=== PATIENT | male | born 1950 | race Two or more races ===

== ENCOUNTER 2019-05-22 04:26 | Inpatient (IN) | payer MEDICARE, MEDICAID ==
[~2019-05-22] VITALS: Ht 165.1 cm; Wt 81.2 kg
[~2019-05-22 04:26] MED LIST: COREG CR10 MG ORAL; LANTUS5 UNITS SUBQ; LISINOPRIL-HCT1 EAC1 PO; ONGLYZA2.5 MG PO; SIMVASTATIN20 MG ORAL
[2019-05-22 04:36] VITALS: BP 188/80
--- NOTE | 2019-05-22 04:36 | NUR ---
ED Nurse Note: pt biba Co generalized weakness. pt family reported to ambulance that pt normal is aao x 2-3 and pt has recently had a decline in level of consciousness. Pt BP elevated, BS 477; ERMD notified. All blood work drawn and sent to lab. UA sent to lab. Charge nurse initiated IV access. Pt has wounds on bilateral leg with previous bandages applied. Pt is poor historian. Pt unable to ambulate. Pt is confused and repeatedly attempts to remove EKG leads and IV access. ERMD aware
--- NOTE | 2019-05-22 04:37 | NUR ---
ED Nurse Note: ERMD at bedside
--- NOTE | 2019-05-22 04:38 | Emergency Room Report ---
History of Present Illness General Chief Complaint: Generalized Weakness Source: Medical Record Present Illness HPI 69-year-old male with a history of diabetes. He presents with chief complaint of altered mental status and weakness. Onset for about a week now. Family called 911 because he is showing increasing weakness and confusion. Hard time walking. Tonight when he try to get out of bed he slid down and they are unable to get him up. Unknown fever. Falling more. No nausea no vomiting. Decreased appetite. Denies any other complaint. Per EMS, blood sugars in the 400s. He was confused and pulled out his IVs. They said he has no focal deficit. COVID-19 risk:Contact w/high r: No COVID-19 risk:Travel to affect: No Has patient experienced bolivar: No Allergies: Coded Allergies: No Known Allergies (Unverified , 09/24/12) Patient History Past Medical History: see triage record, old chart reviewed, DM Past Surgical History: other Pertinent Family History: none Social History: Denies: smoking Immunizations: other Reviewed Nursing Documentation: PMH: Agreed; PSxH: Agreed Nursing Documentation-PMH Hx Cardiac Problems: Yes Hx Hypertension: Yes Hx Diabetes: Yes Hx Cancer: No Hx Gastrointestinal Problems: No Hx Neurological Problems: No Review of Systems Constitutional: Reports: weakness All Other Systems: limited - Pt is a poor historian Physical Exam Vital Signs Date Time Temp Pulse Resp B/P (MAP) Pulse Ox O2 Delivery O2 Flow Rate FiO2 05/22/19 04:26 98.6 79 20 188/80 (116) 97 Room Air Vitals with high blood pressure Sp02 EP Interpretation: reviewed, normal General Appearance: well appearing, no apparent distress, alert, obese Head: normocephalic, atraumatic Eyes: bilateral eye PERRL, bilateral eye EOMI ENT: hearing grossly normal, normal pharynx Neck: full range of motion, supple, no meningismus Respiratory: chest non-tender, lungs clear, normal breath sounds Cardiovascular #1: regular rate, rhythm, no murmur Gastrointestinal: normal bowel sounds, non tender, no mass, no organomegaly, no bruit, non-distended, other - Reducible umbilical hernia Musculoskeletal: back normal, normal range of motion Neurologic: other - Left arm appear to be weaker than right Psychiatric: other - Confused Medical Decision Making Diagnostic Impression: Primary Impression: Acute encephalopathy Additional Impressions: Acute exacerbation of CHF (congestive heart failure) Qualified Codes: I50.9 - Heart failure, unspecified Hyperglycemia due to type 2 diabetes mellitus Qualified Codes: E11.65 - Type 2 diabetes mellitus with hyperglycemia ARF (acute renal failure) Qualified Codes: N17.9 - Acute kidney failure, unspecified Hyponatremia ER Course This patient presents with altered mental status. Differential includes TIA, CVA, infectious, drugs to name a few. He is actually improved and is back to baseline since he been here. He is now alert talking without any issue. CT scans negative for any acute bleed or acute stroke. Labs show renal failure and elevated glucose. BNP is also elevated but chest x-ray it appeared to be euvolemic. He does have 1+ pitting edema however. I gave him Lasix here. Troponin is negative. Because of his multiple risk factor and altered mental status, will admit versus transfer based on his insurance. He is otherwise amiably stable. Approved for admission here. I discussed the case with Dr. Hdz for admission. EKG Diagnostic Results Rate: normal Rhythm: NSR ST Segments: other - bifasicular block Rhythm Strip Diag. Results EP Interpretation: yes Rate: 85 Rhythm: NSR, no PVC's, no ectopy Chest X-Ray Diagnostic Results Chest X-Ray Diagnostic Results : Chest X-Ray Ordered: Yes # of Views/Limited/Complete: 1 View Indication: Shortness of Breath EP Interpretation: Yes Interpretation: no consolidation, no effusion, no pneumothorax, no acute cardiopulmonary disease Impression: No acute disease Electronically Signed by: Khanh Amaya MD CT/MRI/US Diagnostic Results CT/MRI/US Diagnostic Results : Imaging Test Ordered: CT head Impression Per radiologist negative Last Vital Signs Date Time Temp Pulse Resp B/P (MAP) Pulse Ox O2 Delivery O2 Flow Rate FiO2 05/22/19 04:26 98.6 79 20 188/80 (116) 97 Room Air Status: improved Disposition: ADMITTED INPATIENT Condition: Serious Khanh Amaya MD May 22, 2019 04:38
--- NOTE | 2019-05-22 05:05 | NUR ---
ED Nurse Note: xray at bedside
--- NOTE | 2019-05-22 05:24 | NUR ---
ED Nurse Note: Pt taken to CT in stable condition, vss no ss of distress noted.
[2019-05-22 05:33] LABS: APPEARANCE,URINE CLEAR; BILIRUBIN, URINE NEGATIVE (NEGATIVE); COLOR,URINE PALE YELLOW; GLUCOSE, URINE (UA) 4+ (NEGATIVE); KETONES,URINE NEGATIVE (NEGATIVE); LEUKOCYTE ESTERASE ,URINE NEGATIVE (NEGATIVE); NITRITE,URINE NEGATIVE (NEGATIVE); PH,URINE 6 (4.5-8.0); PROTEIN,URINE 4+ (NEGATIVE); UROBILINOGEN,URINE NORMAL MG/DL (0.0-1.0)
[2019-05-22 05:36] LABS: HEMATOCRIT 34.8 % (42.0-52.0); HEMOGLOBIN 12.1 G/DL (14.2-18.0); MEAN CORPUSCULAR VOLUME 82 FL (80-99); PLATELET COUNT 381 K/UL (150-450); RED BLOOD COUNT 4.24 M/UL (4.70-6.10); RED CELL DISTRIBUTION WIDTH 10.8 % (11.6-14.8); WHITE BLOOD COUNT 13.6 K/UL (4.8-10.8)
[2019-05-22 05:45] LABS: ANION GAP 14 mmol/L (5-15); BLOOD UREA NITROGEN 37 mg/dL (7-18); CALCIUM 7.9 MG/DL (8.5-10.1); CARBON DIOXIDE 23 MMOL/L (21-32); CHLORIDE 83 MMOL/L (98-107); CREATININE 3.6 MG/DL (0.55-1.30); POTASSIUM 4.2 MMOL/L (3.5-5.1); SODIUM 120 MMOL/L (136-145)
--- NOTE | 2019-05-22 05:53 | NUR ---
ED Nurse Note: Pt returned from CT in stable condition. VSS no ss of distress noted.
[2019-05-22 05:57] LABS: ALANINE AMINOTRANSFERASE 16 U/L (12-78); ALBUMIN 3.3 G/DL (3.4-5.0); ALBUMIN/GLOBULIN RATIO 0.9 (1.0-2.7); ALKALINE PHOSPHATASE 101 U/L (46-116); ASPARTATE AMINO TRANSFERASE 14 U/L (15-37); BILIRUBIN,TOTAL 0.4 MG/DL (0.2-1.0)
--- NOTE | 2019-05-22 06:06 | Diagnostic Imaging Report ---
EXAM: CT Head Without Intravenous Contrast CLINICAL HISTORY: Altered mental status. TECHNIQUE: Axial computed tomography images of the head/brain without intravenous contrast. CTDI is 42.9 mGy and DLP is 947.2 mGy-cm. One or more of the following dose reduction techniques were used: automated exposure control, adjustment of the mA and/or kV according to patient size, use of iterative reconstruction technique. COMPARISON: None. FINDINGS: Brain: Small vessel disease of aging. No abnormal extra-axial collection. No hemorrhage. Midline shift: No midline shift or mass-effect. Ventricles: There is prominence of the ventricular system, cortical sulci, basilar cisterns, compatible with age and atrophy. Bones/joints: Visualized sinuses and the calvarium are unremarkable. No acute fracture. Soft tissues: Unremarkable. Sinuses: Unremarkable as visualized. No acute sinusitis. Mastoid air cells: Mastoid air cells are well pneumatized. IMPRESSION: 1. No acute pathology. 2. Age-related changes. 3. If there is concern for early acute lacunar infarcts, magnetic resonance imaging of the brain with diffusion-weighted sequences should be performed for follow-up.
[2019-05-22] MEDS ORDERED: Insulin Human Regular 100units/ml 3ml IV ONE (06:15)
[2019-05-22 06:39] VITALS: BP 175/83
--- NOTE | 2019-05-22 06:50 | Diagnostic Imaging Report ---
EXAM: XR Chest, 1 View CLINICAL HISTORY: AMS TECHNIQUE: Frontal view of the chest. COMPARISON: No relevant prior studies available. FINDINGS: Lungs: Unremarkable. No consolidation. Pleural space: Unremarkable. No pneumothorax. Heart: Unremarkable. No cardiomegaly. Mediastinum: Unremarkable. Bones/joints: Unremarkable. IMPRESSION: Normal chest x-ray.
--- NOTE | 2019-05-22 07:14 | NUR ---
ED Nurse Note: report given to MICAELA Mckenzie
--- NOTE | 2019-05-22 07:31 | NUR ---
ED Nurse Note: Handoff report given to Alma HINOJOSA
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
--- NOTE | 2019-05-22 09:55 | NUR ---
NURSE NOTES: RECVD NEW ADMISSION. Pt is AOX2 (name and place), pt was seen by Dr Bloom. Admitting dr is Sean, dx: CHF, AMS, ARF. Pt is on room air with no sign of sob or resp distress. Instructed to place lui by dr Bloom and ok to keep bilat soft wrist restraints as patient is extremely confused and disoriented. Pt belonging is only clothes. belonging list was reviewed with MANAGER DISCOVERY. awake overnight monitor placed on patient. bed alarm is on, call light within reach, will continue with plan of care
[2019-05-22] MEDS ORDERED: HydrALAZINE 25mg tab ORAL PRN (09:59)
[2019-05-22] MEDS ORDERED: cefTRIAXone 1 GM in D5W 55 ML IVPB ONE (10:00)
[2019-05-22] MEDS ORDERED: NaCl 3% 500ml 500 ML IV ONE (11:00)
[2019-05-22] MEDS: NovoLOG Insulin Flexpen SUBQ SCH ×3 (11:30→20:25)
[2019-05-22] MEDS: sitaGLIPtin 50mg tab ORAL SCH (11:54)
[2019-05-22] MEDS: Aspirin Baby 81mg ORAL SCH (11:55)
[2019-05-22] MEDS: cefTRIAXone 1 GM in D5W 55 ML IVPB SCH (11:58)
[2019-05-22 12:00] VITALS: BP 133/78
[2019-05-22] MEDS: Docusate 100mg cap ORAL SCH ×2 (13:12→17:47)
--- NOTE | 2019-05-22 15:25 | Diagnostic Imaging Report ---
EXAM: US Retroperitoneal Limited, Renal CLINICAL HISTORY: Renal insufficiency TECHNIQUE: Real-time limited ultrasound of the retroperitoneum with image documentation. COMPARISON: No relevant prior studies available. FINDINGS: Right kidney: Unremarkable. No stones. No solid mass. No hydronephrosis. Left kidney: Unremarkable. No stones. No solid mass. No hydronephrosis. Bladder: Distended urinary bladder containing 298 cc. Patient is reportedly incontinent. Could not attempt to void to assess for residual volume. IMPRESSION: No hydronephrosis. Distended urinary bladder containing 298 cc. Patient is reportedly incontinent. Could not attempt to void to assess for residual volume.
[2019-05-22 16:00] VITALS: BP 156/87
--- NOTE | 2019-05-22 16:02 | NUR ---
NURSE NOTES: Spoke to daughter Billie, pt fell at home multiple times, pt lives with daughter polly. Pt was ambulatory until a week ago.
--- NOTE | 2019-05-22 17:15 | Consultation ---
DATE OF CONSULTATION: 05/22/2019 INFECTIOUS DISEASES CONSULTATION CONSULTING PHYSICIAN: Kavon Beasley M.D. PRIMARY ATTENDING PHYSICIAN: Rosalba Estrada M.D. REASON FOR CONSULTATION: Leukocytosis. HISTORY OF PRESENT ILLNESS: This is a 69-year-old male admitted yesterday from home for weakness and confusion, has altered mental status for a week, fell down from the bed. The patient had hyperglycemia with blood sugar of 486 in hospital, leukocytosis with WBC count of 13.6. PAST MEDICAL HISTORY: Significant for diabetes mellitus, hypertension, cardiac problems. ALLERGIES: No known drug allergies. MEDICATIONS: Getting famotidine, atorvastatin, Colace, insulin, ceftriaxone, aspirin, Januvia, amlodipine, Protonix, hydralazine. SOCIAL HISTORY: , originally from [facility]. Denies alcohol, drug abuse, smoking. REVIEW OF SYSTEMS: Limited. The patient confused and restrained, although he answer simple question. Denies coughing and problem passing urine. PHYSICAL EXAMINATION: VITAL SIGNS: Temperature 98.2, pulse 79, blood pressure 133/78. GENERAL APPEARANCE: No acute distress. HEAD AND NECK: Getting oxygen by nasal cannula. He has dry mouth. HEART: Normal rate. LUNGS: Clear. ABDOMEN: Soft and nontender. EXTREMITIES: Edema of both legs. SKIN: Abrasion in the left knee, seems to have healed ulcer in the right heel. LABORATORY AND DIAGNOSTIC DATA: WBC 13.6, hemoglobin 12.1, hematocrit 34.8, and platelets is 381. Sodium 124, potassium 4.2, chloride , bicarb 23, BUN 37, creatinine 3.6, glucose 486. Troponin level was negative. BNP is elevated 9391. Urine toxicology was negative. UA showed WBCs of 0-2. Chest x-ray was normal. Head CT showed age related changes. IMPRESSION: 1. Leukocytosis. 2. Renal failure, likely acute on chronic. 3. Diabetes mellitus with hyperglycemia. 4. Hypertension. 5. Obesity. 6. Hyponatremia. RECOMMENDATION: Continue with ceftriaxone. We will follow up the abdominal ultrasound. We will follow up the cultures. At the end of my exam, I thank Dr. Estrada, for involving me in the care of this patient. Kavon Beasley M.D. DR: Refugio JOB#: [id number] CC:
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
--- NOTE | 2019-05-22 19:30 | NUR ---
NURSE NOTES: received pt from Alma HINOJOSA., pt is sleeping at this moment. no SOB noted in RA. pt has bilateral soft wrist restrain at this moment, pulse is noted bilaterally, skin (wrist) is intact. multiple skin tear noted, optifoam applied. Rgith FA 22G is intact, clean, and patent. Castillo cath is draining well with gravity. call light within reach. bed at the lowest position, alarmed, and locked. will continue to monitor pt with plan of care.
[2019-05-22 20:00] VITALS: BP 120/67
[2019-05-22] MEDS ORDERED: Levemir Flexpen SUBQ SCH (20:00)
[2019-05-22] MEDS: Atorvastatin 20mg tab ORAL SCH (20:19)
[2019-05-22] MEDS: LORazepam 1mg tab ORAL PRN (23:21)
--- NOTE | 2019-05-22 23:30 | Consultation ---
DATE OF CONSULTATION: 05/22/2019 CONSULTING PHYSICIAN: Vamshi Amador M.D. HISTORY OF PRESENT ILLNESS: This is a 69-year-old male with a history of multiple medical issues including diabetes mellitus, congestive heart failure, and renal failure, who has been admitted due to altered mental status, more confusion. The patient is [place]er-speaking. He was more agitated than baseline. He is unable to provide any meaningful history. The patient is taking medication via mouth. The patient is attempting to come out of bed on soft restraints. PAST PSYCHIATRIC HISTORY: Dementia. PAST MEDICAL HISTORY: Hypertension and diabetes mellitus. ALLERGIES: No known drug allergies. SUBSTANCE ABUSE HISTORY: No known history of illicit drug use or alcohol. MENTAL STATUS EXAMINATION: The patient is confused, disoriented. Mood is agitated. Affect is flat. Thought process, there is a paucity of thought content. Thought content, no suicidal or homicidal ideation. Cognition is impaired. Insight and judgment is impaired. ASSESSMENT: AXIS I: Acute encephalopathy. Dementia. AXIS II: Deferred. AXIS III: Hyponatremia. AXIS IV: Low. AXIS V: 20. PLAN: 1. We will start the patient on Zyprexa. 2. Ativan p.r.n. 3. We will continue to follow and readjust the medications. Vamshi Amador M.D. DR: KEYSHAWN JOB#: [id number] CC:
[2019-05-23] VITALS: BP 140/96
[2019-05-23 04:00] VITALS: BP 145/80
[2019-05-23] MEDS: NovoLOG Insulin Flexpen SUBQ SCH ×6 (06:28→20:45)
[2019-05-23] MEDS: sitaGLIPtin 50mg tab ORAL SCH (06:29)
[2019-05-23] MEDS ORDERED: NovoLOG Insulin Flexpen SUBQ SCH (06:30)
--- NOTE | 2019-05-23 06:58 | General Progress Note ---
Assessment/Plan Problem List: (1) Hyponatremia ICD Codes: E87.1 - Hypo-osmolality and hyponatremia SNOMED: 98158582, 621651247 (2) ARF (acute renal failure) ICD Codes: N17.9 - Acute kidney failure, unspecified SNOMED: 05174808, 773620185 Qualifiers: Qualified Codes: N17.9 - Acute kidney failure, unspecified (3) Acute exacerbation of CHF (congestive heart failure) ICD Codes: I50.9 - Heart failure, unspecified SNOMED: 789552803, [id number] Qualifiers: Qualified Codes: I50.9 - Heart failure, unspecified (4) Acute encephalopathy ICD Codes: G93.40 - Encephalopathy, unspecified SNOMED: 31757244, 790684983 (5) Hyperglycemia due to type 2 diabetes mellitus ICD Codes: E11.65 - Type 2 diabetes mellitus with hyperglycemia SNOMED: 247397493044758, 75560484 Qualifiers: Qualified Codes: E11.65 - Type 2 diabetes mellitus with hyperglycemia Assessment/Plan: change Levemir to 25 units qhs add Novolog 6 units ac tid continue Novolog sliding scale ac / hs Subjective ROS Limited/Unobtainable: Yes Allergies: Coded Allergies: No Known Allergies (Unverified , 09/24/12) Subjective events noted evaluated by Dr Cole yesterday presented with severe hyperglycemia received Levemir 25 units last night fasting glucose greatly improved Item Value Date Time Bedside Blood Glucose 102 mg/dl 05/23/19 0630 Bedside Blood Glucose 288 mg/dl H 05/22/19 2100 Bedside Blood Glucose 257 mg/dl H 05/22/19 1743 Bedside Blood Glucose 373 mg/dl H 05/22/19 1130 Bedside Blood Glucose 477 mg/dl H 05/22/19 0621 Objective Last 24 Hour Vital Signs Date Time Temp Pulse Resp B/P (MAP) Pulse Ox O2 Delivery O2 Flow Rate FiO2 05/23/19 04:00 98.7 90 20 145/80 (101) 96 05/23/19 03:45 88 05/23/19 00:00 98.1 83 20 140/96 (111) 96 05/22/19 23:27 86 05/22/19 21:00 Room Air 05/22/19 20:00 98.4 20 120/67 (84) 98 05/22/19 19:51 84 05/22/19 16:00 89 05/22/19 16:00 97.7 20 156/87 (110) 96 05/22/19 12:00 98.2 18 133/78 (96) 97 05/22/19 12:00 92 05/22/19 11:55 79 169/79 05/22/19 11:35 Room Air 05/22/19 07:40 98.4 79 18 169/79 99 Room Air Intake and Output 05/22/19 05/23/19 19:00 07:00 Intake Total 360 ml 50 ml Output Total 1500 ml 2400 ml Balance -1140 ml -2350 ml Intake Oral 360 ml 50 ml Output Urine Total 1500 ml 2400 ml # Voids 1 1 Height (Feet): 5 Height (Inches): 5.00 Weight (Pounds): 218 General Appearance: lethargic Neck: normal alignment Cardiovascular: normal rate Respiratory/Chest: lungs clear Abdomen: normal bowel sounds Objective Current Medications Medications (Trade) Dose Ordered Sig/Brendon Route PRN Reason Start Time Stop Time Status Last Admin Dose Admin Amlodipine Besylate (Norvasc) 10 mg DAILY ORAL 05/22/19 10:00 06/21/19 09:59 05/22/19 11:55 Aspirin (ASA) 81 mg DAILY ORAL 05/22/19 10:15 07/06/19 10:14 05/22/19 11:55 Atorvastatin Calcium (Lipitor) 20 mg BEDTIME ORAL 05/22/19 21:00 08/20/19 20:59 05/22/19 20:19 Ceftriaxone Sodium 1 gm/ Dextrose 55 ml @ 110 mls/hr Q24H IVPB 05/22/19 11:00 05/29/19 10:59 05/22/19 11:58 Dextrose (Dextrose 50%) 25 ml Q30M PRN IV Hypoglycemia 05/22/19 11:30 08/20/19 11:29 Dextrose (Dextrose 50%) 25 ml Q30M PRN IV Hypoglycemia 05/22/19 18:45 08/20/19 18:44 Dextrose (Dextrose 50%) 50 ml Q30M PRN IV Hypoglycemia 05/22/19 11:30 08/20/19 11:29 Dextrose (Dextrose 50%) 50 ml Q30M PRN IV Hypoglycemia 05/22/19 18:45 08/20/19 18:44 Docusate Sodium (Colace) 100 mg THREE TIMES A DAY ORAL 05/22/19 13:00 06/21/19 12:59 05/22/19 17:47 Furosemide (Lasix) 20 mg EVERY 12 HOURS IV 05/22/19 21:00 06/21/19 20:59 05/22/19 20:26 Hydralazine HCl (Apresoline) 25 mg Q4H PRN ORAL bp over 160 syst 05/22/19 09:59 08/20/19 09:58 Insulin Aspart (NovoLOG) BEFORE MEALS AND HS SUBQ 05/22/19 21:00 08/20/19 20:59 05/22/19 20:25 Insulin Aspart (NovoLOG) 10 units NOVOTIAC SUBQ 05/23/19 06:30 08/21/19 06:29 Insulin Detemir (Levemir) 25 units Q12HR SUBQ 05/22/19 20:00 08/20/19 19:59 05/22/19 20:24 Lorazepam (Ativan) 1 mg Q4H PRN ORAL For Anxiety 05/22/19 18:30 05/29/19 18:29 05/22/19 23:21 Olanzapine (ZyPREXA) 5 mg BID ORAL 05/22/19 18:30 07/06/19 18:29 05/22/19 18:40 Pantoprazole (Protonix) 40 mg EVERY 12 HOURS ORAL 05/22/19 10:00 06/21/19 09:59 05/22/19 20:19 Sitagliptin Phosphate (Januvia) 50 mg ACBREAKFAST ORAL 05/22/19 10:01 06/21/19 10:00 05/22/19 11:54 Henri Hernandes MD May 23, 2019 06:58
--- NOTE | 2019-05-23 07:20 | NUR ---
HAND-OFF: Report given to Alma HINOJOSA., pt remains stable at this moment. endorsed plan of care. IV intact patent, and clean. call light within reach.
[2019-05-23 07:35] LABS: BASOPHILS % (AUTO) 0.7 % (0.0-2.0); EOSINOPHILS % (AUTO) 0.5 % (0.0-3.0); HEMATOCRIT 28.1 % (42.0-52.0); HEMOGLOBIN 10.1 G/DL (14.2-18.0); LYMPHOCYTES % (AUTO) 12.1 % (20.0-45.0); MEAN CORPUSCULAR VOLUME 82 FL (80-99); MONOCYTES % (AUTO) 9.2 % (1.0-10.0); NEUTROPHILS % (AUTO) 77.5 % (45.0-75.0); PLATELET COUNT 354 K/UL (150-450); RED BLOOD COUNT 3.45 M/UL (4.70-6.10); RED CELL DISTRIBUTION WIDTH 10.6 % (11.6-14.8); WHITE BLOOD COUNT 12.1 K/UL (4.8-10.8)
[2019-05-23 08:00] VITALS: BP 127/67
[2019-05-23 08:18] LABS: ALANINE AMINOTRANSFERASE 16 U/L (12-78); ALBUMIN 2.7 G/DL (3.4-5.0); ALBUMIN/GLOBULIN RATIO 0.7 (1.0-2.7); ALKALINE PHOSPHATASE 83 U/L (46-116); ANION GAP 12 mmol/L (5-15); ASPARTATE AMINO TRANSFERASE 24 U/L (15-37); BILIRUBIN,TOTAL 0.2 MG/DL (0.2-1.0); BLOOD UREA NITROGEN 38 mg/dL (7-18); CALCIUM 7.6 MG/DL (8.5-10.1); CARBON DIOXIDE 23 MMOL/L (21-32); CHLORIDE 98 MMOL/L (98-107); CHOLESTEROL 156 MG/DL (< 200); CREATINE KINASE 604 U/L (26-308); CREATININE 3.4 MG/DL (0.55-1.30); FERRITIN 60 NG/ML (8-388); GAMMA GLUTAMYL TRANSPEPTIDASE 25 U/L (5-85); HDL CHOLESTEROL 52 MG/DL (40-60); PHOSPHORUS 4.5 MG/DL (2.5-4.9); SODIUM 133 MMOL/L (136-145); TRIGLYCERIDES 149 MG/DL (30-150)
--- NOTE | 2019-05-23 09:00 | NUR ---
NURSE NOTES: Recvd Pt. Pt is on room air with no sign of sob or resp distress. Pt is sleeping. IV in right FA SL. Pt is on soft bilat wrist restraints. bed alarm is on, call light within reach, will continue with plan of care
[2019-05-23 09:50] LABS: % IRON SATURATION 11 % (15-50); IRON 23 ug/dL (50-175); TOTAL IRON BINDING CAPACITY 210 ug/dL (250-450)
--- NOTE | 2019-05-23 10:21 | Consultation ---
History of Present Illness General Date patient seen: May 23, 2019 Chief Complaint: Generalized Weakness Referring physician: Dr. Estrada Reason for Consultation: Right heel ulcer. Present Illness HPI S: Pt seen bedside , resting asleep. Appears NAD. Resting comfortably. Allergies: Coded Allergies: No Known Allergies (Unverified , 09/24/12) Medication History Scheduled Carvedilol Phosphate (Coreg Cr), 10 MG ORAL DAILY, (Reported) Insulin Glargine (Lantus), 20 UNITS SUBQ BEDTIME, (Reported) Lisinopril/Hydrochlorothiazide 20-12.5 Mg Tab (Lisinopril-Hctz 20-12.5 Mg Tab), 1 EACH PO DAILY, (Reported) Saxagliptin Hcl (Onglyza), 2.5 MG PO DAILY, (Reported) Simvastatin (Zocor), 20 MG ORAL BEDTIME, (Reported) Patient History Healthcare decision maker Resuscitation status Full Code Advanced Directive on File No Physical Exam Physical Exam Narrative Focused RLE Exam: Derm: R heel plantar posterior heel DTI. Serous fluid noted. (-) purulent drainage. No ascending erythema, edema is noted. Vasc: 1/4 DP/PT pulses, HISTORIAN RESEARCH ASSISTANT < 3 seconds. Neuro: SILT intact. MSK: MS / ROM. Last 24 Hour Vital Signs Date Time Temp Pulse Resp B/P (MAP) Pulse Ox O2 Delivery O2 Flow Rate FiO2 05/23/19 04:00 98.7 90 20 145/80 (101) 96 05/23/19 03:45 88 05/23/19 00:00 98.1 83 20 140/96 (111) 96 05/22/19 23:27 86 05/22/19 21:00 Room Air 05/22/19 20:00 98.4 20 120/67 (84) 98 05/22/19 19:51 84 05/22/19 16:00 89 05/22/19 16:00 97.7 20 156/87 (110) 96 05/22/19 12:00 98.2 18 133/78 (96) 97 05/22/19 12:00 92 05/22/19 11:55 79 169/79 05/22/19 11:35 Room Air Intake and Output 05/22/19 05/23/19 19:00 07:00 Intake Total 360 ml 50 ml Output Total 1500 ml 2400 ml Balance -1140 ml -2350 ml Intake Oral 360 ml 50 ml Output Urine Total 1500 ml 2400 ml # Voids 1 1 Laboratory Tests Test 05/23/19 06:56 White Blood Count 12.1 K/UL (4.8-10.8) H Red Blood Count 3.45 M/UL (4.70-6.10) L Hemoglobin 10.1 G/DL (14.2-18.0) L Hematocrit 28.1 % (42.0-52.0) L Mean Corpuscular Volume 82 FL (80-99) Mean Corpuscular Hemoglobin 29.3 PG (27.0-31.0) Mean Corpuscular Hemoglobin Concent 35.9 G/DL (32.0-36.0) Red Cell Distribution Width 10.6 % (11.6-14.8) L Platelet Count 354 K/UL (150-450) Mean Platelet Volume 6.1 FL (6.5-10.1) L Neutrophils (%) (Auto) 77.5 % (45.0-75.0) H Lymphocytes (%) (Auto) 12.1 % (20.0-45.0) L Monocytes (%) (Auto) 9.2 % (1.0-10.0) Eosinophils (%) (Auto) 0.5 % (0.0-3.0) Basophils (%) (Auto) 0.7 % (0.0-2.0) Sodium Level 133 MMOL/L (136-145) L Potassium Level 3.0 MMOL/L (3.5-5.1) L Chloride Level 98 MMOL/L (98-107) Carbon Dioxide Level 23 MMOL/L (21-32) Anion Gap 12 mmol/L (5-15) Blood Urea Nitrogen 38 mg/dL (7-18) H Creatinine 3.4 MG/DL (0.55-1.30) H Estimat Glomerular Filtration Rate 18.1 mL/min (>60) Glucose Level 101 MG/DL (74-106) # Hemoglobin A1c > 16.0 % (4.3-6.0) H Osmolality 285 mOsm/kg (297-317) L Uric Acid 8.4 MG/DL (2.6-7.2) H Calcium Level 7.6 MG/DL (8.5-10.1) L Phosphorus Level 4.5 MG/DL (2.5-4.9) Magnesium Level 1.8 MG/DL (1.8-2.4) Iron Level 23 ug/dL (50-175) L Total Iron Binding Capacity 210 ug/dL (250-450) L Percent Iron Saturation 11 % (15-50) L Unsaturated Iron Binding 187 ug/dL (112-346) Ferritin 60 NG/ML (8-388) Total Bilirubin 0.2 MG/DL (0.2-1.0) Gamma Glutamyl Transpeptidase 25 U/L (5-85) Aspartate Amino Transf (AST/SGOT) 24 U/L (15-37) Alanine Aminotransferase (ALT/SGPT) 16 U/L (12-78) Alkaline Phosphatase 83 U/L (46-116) Total Creatine Kinase 604 U/L (26-308) H Troponin I 0.041 ng/mL (0.000-0.056) C-Reactive Protein, Quantitative 6.0 mg/dL (0.00-0.90) H Pro-B-Type Natriuretic Peptide 69341 pg/mL (0-125) H Total Protein 6.4 G/DL (6.4-8.2) Albumin 2.7 G/DL (3.4-5.0) L Globulin 3.7 g/dL Albumin/Globulin Ratio 0.7 (1.0-2.7) L Triglycerides Level 149 MG/DL (30-150) Cholesterol Level 156 MG/DL (< 200) LDL Cholesterol 84 mg/dL (<100) HDL Cholesterol 52 MG/DL (40-60) Cholesterol/HDL Ratio 3.0 (3.3-4.4) L Vitamin B12 Level 907 PG/ML (193-986) Folate 11.5 NG/ML (8.6-58.9) Thyroid Stimulating Hormone (TSH) 1.597 uiU/mL (0.358-3.740) Height (Feet): 5 Height (Inches): 5.00 Weight (Pounds): 218 Medications Current Medications Medications (Trade) Dose Ordered Sig/Brendon Route PRN Reason Start Time Stop Time Status Last Admin Dose Admin Amlodipine Besylate (Norvasc) 10 mg DAILY ORAL 05/22/19 10:00 06/21/19 09:59 05/22/19 11:55 Aspirin (ASA) 81 mg DAILY ORAL 05/22/19 10:15 07/06/19 10:14 05/22/19 11:55 Atorvastatin Calcium (Lipitor) 20 mg BEDTIME ORAL 05/22/19 21:00 08/20/19 20:59 05/22/19 20:19 Ceftriaxone Sodium 1 gm/ Dextrose 55 ml @ 110 mls/hr Q24H IVPB 05/22/19 11:00 05/29/19 10:59 05/22/19 11:58 Dextrose (Dextrose 50%) 25 ml Q30M PRN IV Hypoglycemia 05/23/19 07:00 08/21/19 06:59 Dextrose (Dextrose 50%) 50 ml Q30M PRN IV Hypoglycemia 05/23/19 07:00 08/21/19 06:59 Docusate Sodium (Colace) 100 mg THREE TIMES A DAY ORAL 05/22/19 13:00 06/21/19 12:59 05/22/19 17:47 Furosemide (Lasix) 20 mg EVERY 12 HOURS IV 05/22/19 21:00 06/21/19 20:59 05/22/19 20:26 Hydralazine HCl (Apresoline) 25 mg Q4H PRN ORAL bp over 160 syst 05/22/19 09:59 08/20/19 09:58 Insulin Aspart (NovoLOG) BEFORE MEALS AND HS SUBQ 05/22/19 21:00 08/20/19 20:59 05/22/19 20:25 Insulin Aspart (NovoLOG) 6 units NOVOTIAC SUBQ 05/23/19 11:50 08/21/19 11:49 Insulin Detemir (Levemir) 25 units QHS SUBQ 05/23/19 21:00 08/20/19 19:59 Lorazepam (Ativan) 1 mg Q4H PRN ORAL For Anxiety 05/22/19 18:30 05/29/19 18:29 05/22/19 23:21 Olanzapine (ZyPREXA) 5 mg BID ORAL 05/22/19 18:30 07/06/19 18:29 05/22/19 18:40 Pantoprazole (Protonix) 40 mg EVERY 12 HOURS ORAL 05/22/19 10:00 06/21/19 09:59 05/22/19 20:19 Potassium Chloride 100 ml @ 100 mls/hr Q1HR IVPB 05/23/19 11:00 05/23/19 14:59 UNV Sitagliptin Phosphate (Januvia) 50 mg ACBREAKFAST ORAL 05/22/19 10:01 06/21/19 10:00 05/22/19 11:54 Assessment/Plan Assessment/Plan: A: R heel ulceration, DTI R foot charcot Acute Renal Failure CHF Exacerbation DM P: - Pt seen and evaluated - lab and chart reviewed. - MRI ordered R heel, R/O OM vs deep soft tissue infection. - Arterial U/S B/L L/E ordered, R/O PVD. - Betadine dressing R foot. - Off-loading measures B/L L/E. - Cont IV ABx per ID. - Cont Tx per specialists. - Podiatry will cont to monitor. Ming Yip DPM May 23, 2019 10:21
--- NOTE | 2019-05-23 10:53 | Infectious Diseases Prog Note ---
Assessment/Plan Assessment/Plan IMPRESSION: 1. Leukocytosis improving 2. Renal failure, likely acute on chronic. 3. Diabetes mellitus with hyperglycemia. 4. Hypertension. 5. Obesity. 6. Hyponatremia. RECOMMENDATION: Continue with ceftriaxone. We will follow up the right foot MRI Subjective ROS Limited/Unobtainable: Yes Constitutional: Denies: fever Allergies: Coded Allergies: No Known Allergies (Unverified , 09/24/12) Objective Vital Signs Last 24 Hour Vital Signs Date Time Temp Pulse Resp B/P (MAP) Pulse Ox O2 Delivery O2 Flow Rate FiO2 05/23/19 09:00 Room Air 05/23/19 08:00 85 05/23/19 08:00 96.6 84 20 127/67 (87) 98 05/23/19 04:00 98.7 90 20 145/80 (101) 96 05/23/19 03:45 88 05/23/19 00:00 98.1 83 20 140/96 (111) 96 05/22/19 23:27 86 05/22/19 21:00 Room Air 05/22/19 20:00 98.4 20 120/67 (84) 98 05/22/19 19:51 84 05/22/19 16:00 89 05/22/19 16:00 97.7 20 156/87 (110) 96 05/22/19 12:00 98.2 18 133/78 (96) 97 05/22/19 12:00 92 05/22/19 11:55 79 169/79 05/22/19 11:35 Room Air Height (Feet): 5 Height (Inches): 5.00 Weight (Pounds): 218 General Appearance: no acute distress HEENT: mucous membranes moist Respiratory/Chest: lungs clear Cardiovascular: normal rate Abdomen: soft, non tender Extremities: no edema Skin: ulcers, other - left knee ulcer, right heal deep tissue injury Neurologic/Psychiatric: other - sleeping Laboratory Tests Test 05/23/19 06:56 White Blood Count 12.1 K/UL (4.8-10.8) H Red Blood Count 3.45 M/UL (4.70-6.10) L Hemoglobin 10.1 G/DL (14.2-18.0) L Hematocrit 28.1 % (42.0-52.0) L Mean Corpuscular Volume 82 FL (80-99) Mean Corpuscular Hemoglobin 29.3 PG (27.0-31.0) Mean Corpuscular Hemoglobin Concent 35.9 G/DL (32.0-36.0) Red Cell Distribution Width 10.6 % (11.6-14.8) L Platelet Count 354 K/UL (150-450) Mean Platelet Volume 6.1 FL (6.5-10.1) L Neutrophils (%) (Auto) 77.5 % (45.0-75.0) H Lymphocytes (%) (Auto) 12.1 % (20.0-45.0) L Monocytes (%) (Auto) 9.2 % (1.0-10.0) Eosinophils (%) (Auto) 0.5 % (0.0-3.0) Basophils (%) (Auto) 0.7 % (0.0-2.0) Sodium Level 133 MMOL/L (136-145) L Potassium Level 3.0 MMOL/L (3.5-5.1) L Chloride Level 98 MMOL/L (98-107) Carbon Dioxide Level 23 MMOL/L (21-32) Anion Gap 12 mmol/L (5-15) Blood Urea Nitrogen 38 mg/dL (7-18) H Creatinine 3.4 MG/DL (0.55-1.30) H Estimat Glomerular Filtration Rate 18.1 mL/min (>60) Glucose Level 101 MG/DL (74-106) # Hemoglobin A1c > 16.0 % (4.3-6.0) H Osmolality 285 mOsm/kg (297-317) L Uric Acid 8.4 MG/DL (2.6-7.2) H Calcium Level 7.6 MG/DL (8.5-10.1) L Phosphorus Level 4.5 MG/DL (2.5-4.9) Magnesium Level 1.8 MG/DL (1.8-2.4) Iron Level 23 ug/dL (50-175) L Total Iron Binding Capacity 210 ug/dL (250-450) L Percent Iron Saturation 11 % (15-50) L Unsaturated Iron Binding 187 ug/dL (112-346) Ferritin 60 NG/ML (8-388) Total Bilirubin 0.2 MG/DL (0.2-1.0) Gamma Glutamyl Transpeptidase 25 U/L (5-85) Aspartate Amino Transf (AST/SGOT) 24 U/L (15-37) Alanine Aminotransferase (ALT/SGPT) 16 U/L (12-78) Alkaline Phosphatase 83 U/L (46-116) Total Creatine Kinase 604 U/L (26-308) H Troponin I 0.041 ng/mL (0.000-0.056) C-Reactive Protein, Quantitative 6.0 mg/dL (0.00-0.90) H Pro-B-Type Natriuretic Peptide 54344 pg/mL (0-125) H Total Protein 6.4 G/DL (6.4-8.2) Albumin 2.7 G/DL (3.4-5.0) L Globulin 3.7 g/dL Albumin/Globulin Ratio 0.7 (1.0-2.7) L Triglycerides Level 149 MG/DL (30-150) Cholesterol Level 156 MG/DL (< 200) LDL Cholesterol 84 mg/dL (<100) HDL Cholesterol 52 MG/DL (40-60) Cholesterol/HDL Ratio 3.0 (3.3-4.4) L Vitamin B12 Level 907 PG/ML (193-986) Folate 11.5 NG/ML (8.6-58.9) Thyroid Stimulating Hormone (TSH) 1.597 uiU/mL (0.358-3.740) Current Medications Medications (Trade) Dose Ordered Sig/Brendon Route PRN Reason Start Time Stop Time Status Last Admin Dose Admin Amlodipine Besylate (Norvasc) 10 mg DAILY ORAL 05/22/19 10:00 06/21/19 09:59 05/22/19 11:55 Aspirin (ASA) 81 mg DAILY ORAL 05/22/19 10:15 07/06/19 10:14 05/22/19 11:55 Atorvastatin Calcium (Lipitor) 20 mg BEDTIME ORAL 05/22/19 21:00 08/20/19 20:59 05/22/19 20:19 Ceftriaxone Sodium 1 gm/ Dextrose 55 ml @ 110 mls/hr Q24H IVPB 05/22/19 11:00 05/29/19 10:59 05/22/19 11:58 Dextrose (Dextrose 50%) 25 ml Q30M PRN IV Hypoglycemia 05/23/19 07:00 08/21/19 06:59 Dextrose (Dextrose 50%) 50 ml Q30M PRN IV Hypoglycemia 05/23/19 07:00 08/21/19 06:59 Docusate Sodium (Colace) 100 mg THREE TIMES A DAY ORAL 05/22/19 13:00 06/21/19 12:59 05/22/19 17:47 Furosemide (Lasix) 20 mg EVERY 12 HOURS IV 05/22/19 21:00 06/21/19 20:59 05/22/19 20:26 Hydralazine HCl (Apresoline) 25 mg Q4H PRN ORAL bp over 160 syst 05/22/19 09:59 08/20/19 09:58 Insulin Aspart (NovoLOG) BEFORE MEALS AND HS SUBQ 05/22/19 21:00 08/20/19 20:59 05/22/19 20:25 Insulin Aspart (NovoLOG) 6 units NOVOTIAC SUBQ 05/23/19 11:50 08/21/19 11:49 Insulin Detemir (Levemir) 25 units QHS SUBQ 05/23/19 21:00 08/20/19 19:59 Lorazepam (Ativan) 1 mg Q4H PRN ORAL For Anxiety 05/22/19 18:30 05/29/19 18:29 05/22/19 23:21 Olanzapine (ZyPREXA) 5 mg BID ORAL 05/22/19 18:30 07/06/19 18:29 05/22/19 18:40 Pantoprazole (Protonix) 40 mg EVERY 12 HOURS ORAL 05/22/19 10:00 06/21/19 09:59 05/22/19 20:19 Potassium Chloride 100 ml @ 100 mls/hr Q1H IVPB 05/23/19 11:00 05/23/19 14:59 Sitagliptin Phosphate (Januvia) 50 mg ACBREAKFAST ORAL 05/22/19 10:01 06/21/19 10:00 05/22/19 11:54 Sodium Chloride 400 ml @ 100 mls/hr Q4H IV 05/23/19 11:00 05/23/19 14:59 Kavon Beasley MD May 23, 2019 10:53
[2019-05-23] MEDS: Aspirin Baby 81mg ORAL SCH (10:56)
[2019-05-23] MEDS: cefTRIAXone 1 GM in D5W 55 ML IVPB SCH (11:00)
[2019-05-23] MEDS ORDERED: Sodium Chloride for KCL Premix X 4hrs IV SCH (11:00)
[2019-05-23] MEDS: Docusate 100mg cap ORAL SCH ×3 (11:01→18:00)
[2019-05-23] MEDS: LORazepam 1mg tab ORAL PRN (11:01)
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
[2019-05-23 12:00] VITALS: BP 98/57
--- NOTE | 2019-05-23 12:25 | NUR ---
NURSE NOTES: Spoke to technician automatic, requesting more time as pt is poor historian, need to know if pt has any metal. No PM noted. Pt recently had surgery to right foot, family unsure of procedure. Pt daughter unable to state if pt has any metal, will follow up with packaging tech
--- NOTE | 2019-05-23 12:26 | NUR ---
05/22...CONCERNING MRI...EXAM ON HOLD, MICAELA GARDUNO WISHES TO SPEAK TO FAMILY 1ST TO CONFIRM MR SAFETY. PT ALSO NEEDS TO BE WELL SEDATED FOR EXAM SINCE HE MUST BE STILL FOR AROUND 25-30 MINUTES. NEL 12:15
--- NOTE | 2019-05-23 13:15 | Consultation ---
DATE OF CONSULTATION: 05/22/2019 ENDOCRINOLOGY CONSULTATION CONSULTING PHYSICIAN: Ean Cole M.D. REFERRING PHYSICIAN: Rosalba Estrada M.D. REASON FOR CONSULTATION: I was asked to see this 69-year-old male by Dr. Rosalba Estrada in endocrinology consultation for management of type 2 diabetes mellitus out of control. hyponatremia, sodium 120, started on glargine 5 units q.12 h. and 30 mL/hr per renal risk assessment consultant. PHYSICAL EXAMINATION: GENERAL: The patient is in no acute distress. VITAL SIGNS: Blood pressure . . EXTREMITIES: 2+ edema. NEUROLOGICAL: Cranial nerves II through XII are grossly intact. Toes are downgoing to plantar stimulation. LABORATORY DATA: WBC . Sodium 120, BUN 13, creatinine , glucose . Troponin 0.030. BNP 9391. CT of the head was negative. IMPRESSION: 1. Diabetes mellitus, type 2, out of control. 2. Chronic renal insufficiency acute CKD 4 . PLAN: Levemir was increased from 5 to 25 units q.12 h. NovoLog 10 units t.i.d. a.c. sliding scale. Ean Cole M.D. DR: ZHENG JOB#: [id number] CC:
--- NOTE | 2019-05-23 13:20 | Cardiac Electrophysiology PN ---
Subjective Subjective [id number] Objective Last 24 Hour Vital Signs Date Time Temp Pulse Resp B/P (MAP) Pulse Ox O2 Delivery O2 Flow Rate FiO2 05/23/19 09:00 85 127/67 05/23/19 09:00 Room Air 05/23/19 08:00 85 05/23/19 08:00 96.6 84 20 127/67 (87) 98 05/23/19 04:00 98.7 90 20 145/80 (101) 96 05/23/19 03:45 88 05/23/19 00:00 98.1 83 20 140/96 (111) 96 05/22/19 23:27 86 05/22/19 21:00 Room Air 05/22/19 20:00 98.4 20 120/67 (84) 98 05/22/19 19:51 84 05/22/19 16:00 89 05/22/19 16:00 97.7 20 156/87 (110) 96 Intake and Output 05/22/19 05/23/19 19:00 07:00 Intake Total 360 ml 50 ml Output Total 1500 ml 2400 ml Balance -1140 ml -2350 ml Intake Oral 360 ml 50 ml Output Urine Total 1500 ml 2400 ml # Voids 1 1 Laboratory Tests Test 05/23/19 06:56 White Blood Count 12.1 K/UL (4.8-10.8) H Red Blood Count 3.45 M/UL (4.70-6.10) L Hemoglobin 10.1 G/DL (14.2-18.0) L Hematocrit 28.1 % (42.0-52.0) L Mean Corpuscular Volume 82 FL (80-99) Mean Corpuscular Hemoglobin 29.3 PG (27.0-31.0) Mean Corpuscular Hemoglobin Concent 35.9 G/DL (32.0-36.0) Red Cell Distribution Width 10.6 % (11.6-14.8) L Platelet Count 354 K/UL (150-450) Mean Platelet Volume 6.1 FL (6.5-10.1) L Neutrophils (%) (Auto) 77.5 % (45.0-75.0) H Lymphocytes (%) (Auto) 12.1 % (20.0-45.0) L Monocytes (%) (Auto) 9.2 % (1.0-10.0) Eosinophils (%) (Auto) 0.5 % (0.0-3.0) Basophils (%) (Auto) 0.7 % (0.0-2.0) Sodium Level 133 MMOL/L (136-145) L Potassium Level 3.0 MMOL/L (3.5-5.1) L Chloride Level 98 MMOL/L (98-107) Carbon Dioxide Level 23 MMOL/L (21-32) Anion Gap 12 mmol/L (5-15) Blood Urea Nitrogen 38 mg/dL (7-18) H Creatinine 3.4 MG/DL (0.55-1.30) H Estimat Glomerular Filtration Rate 18.1 mL/min (>60) Glucose Level 101 MG/DL (74-106) # Hemoglobin A1c > 16.0 % (4.3-6.0) H Osmolality 285 mOsm/kg (297-317) L Uric Acid 8.4 MG/DL (2.6-7.2) H Calcium Level 7.6 MG/DL (8.5-10.1) L Phosphorus Level 4.5 MG/DL (2.5-4.9) Magnesium Level 1.8 MG/DL (1.8-2.4) Iron Level 23 ug/dL (50-175) L Total Iron Binding Capacity 210 ug/dL (250-450) L Percent Iron Saturation 11 % (15-50) L Unsaturated Iron Binding 187 ug/dL (112-346) Ferritin 60 NG/ML (8-388) Total Bilirubin 0.2 MG/DL (0.2-1.0) Gamma Glutamyl Transpeptidase 25 U/L (5-85) Aspartate Amino Transf (AST/SGOT) 24 U/L (15-37) Alanine Aminotransferase (ALT/SGPT) 16 U/L (12-78) Alkaline Phosphatase 83 U/L (46-116) Total Creatine Kinase 604 U/L (26-308) H Troponin I 0.041 ng/mL (0.000-0.056) C-Reactive Protein, Quantitative 6.0 mg/dL (0.00-0.90) H Pro-B-Type Natriuretic Peptide 27362 pg/mL (0-125) H Total Protein 6.4 G/DL (6.4-8.2) Albumin 2.7 G/DL (3.4-5.0) L Globulin 3.7 g/dL Albumin/Globulin Ratio 0.7 (1.0-2.7) L Triglycerides Level 149 MG/DL (30-150) Cholesterol Level 156 MG/DL (< 200) LDL Cholesterol 84 mg/dL (<100) HDL Cholesterol 52 MG/DL (40-60) Cholesterol/HDL Ratio 3.0 (3.3-4.4) L Vitamin B12 Level 907 PG/ML (193-986) Folate 11.5 NG/ML (8.6-58.9) Thyroid Stimulating Hormone (TSH) 1.597 uiU/mL (0.358-3.740) Shashi Tucker MD May 23, 2019 13:20
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
--- NOTE | 2019-05-23 13:32 | NUR ---
CASE MANAGEMENT: INITIAL REVIEW 69YR OLD MALE BIBA FROM HOME CC: GENERALIZED WEAKNESS SI:CHF . ACUTE ENCEPHALOPATHY . UTI 98.6 79 20 188/80 97% ON RA NA+ 120 CL- 83 BUN 37 CREAT 3.6 BG 486 CA+ 7.9 BNP 9391 WBC 13.6 H/H 12.1/34.8 IS:IVF NS BOLUS X1 NOVOLOG IV X1 LASIX IV X1 CT HEAD - If there is concern for early acute lacunar infarcts CHEST X-RAY- NORMAL US RENAL - NO HYDRONEPHROSIS \: 2E TELE UNIT DCP: FAMILY REQUESTING SNF CASE MANAGEMENT: REVIEW 05/23/19 SI:CHF . ACUTE ENCEPHALOPATHY . UTI . RENAL FAILURE . DM 96.6 84 20 127/67 98% ON RA WBC 12.1 H/H 10.1/28.1 CK 604 BNP 72272 NA+ 133 K+3.0 BUN 38 CREAT 3.4 HA1C 16.0 URIC ACID 8.4 CA+ 7.6 IS:IV ROCEPHIN Q24HR IV K-CL X4BAGS IV NS@100ML/HR PROTONIX PO BID ASA PO QD ATIVAN Q4/PRN \: 2E TELE UNIT DCP: FAMILY REQUESTING SNF
[2019-05-23 15:57] VITALS: BP 119/70
--- NOTE | 2019-05-23 16:49 | NUR ---
NURSE NOTES: Notified Dr Amador pt has been sleeping all day,. Addendum: 05/23/19 at 1650 by SHAAN AZEVEDO RN Zyprexa was held this morning, requesting to dc order. lorazepam is available if necessary
--- NOTE | 2019-05-23 17:15 | Consultation ---
DATE OF CONSULTATION: 05/23/2019 CARDIOLOGY CONSULTATION CONSULTING PHYSICIAN: Shashi Tucker M.D. REFERRING PHYSICIAN: Rosalba Estrada M.D. REASON FOR CONSULTATION: Evaluation of hypertension and history of heart surgery. HISTORY OF PRESENT ILLNESS: The patient is a 69-year-old gentleman with history of hypertension, diabetes, and history of sternotomy for open heart surgery, who was admitted from home for weakness and confusion. The patient was altered and fell down from bed. The patient was found to have hyperglycemia with glucose of 486, as well as white count of 13.6. The patient at the time of my evaluation is still confused and is not able to provide any information. REVIEW OF SYSTEMS: Cannot be obtained. PAST MEDICAL HISTORY: As mentioned above. FAMILY HISTORY: Noncontributory. SOCIAL HISTORY: He lives at home with the family. Does not smoke or drink alcohol. PHYSICAL EXAMINATION: VITAL SIGNS: Blood pressure is 127/67, pulse 85, respiratory rate 18, and temperature 96.6. HEAD AND NECK: Shows no JVD. LUNGS: Coarse rhonchi. CARDIOVASCULAR: Shows regular S1 and S2 with no gallop or murmur. Sternotomy scar is healed. ABDOMEN: Soft. EXTREMITIES: Ulcer in the heel as well as ulcer in the right lateral thigh. LABORATORY AND DIAGNOSTIC STUDIES: Labs show white count of 12.1, hemoglobin of 10, hematocrit 28, and platelet count of 354,000. Sodium is 132, potassium 3.0, BUN of 38, creatinine 3.4, and glucose of 101, initially was 486. Troponin negative x2. ASSESSMENT AND PLAN: 1. Elevated BNP of more than 14,000, possible congestive heart failure. His echocardiogram showed ejection fraction of 65%. Watch the patient on telemetry, already ruled out for myocardial infarction. 2. Severe aortic stenosis with aortic valve area of 0.5 by continuity equation. Awaiting final echocardiogram reading. 3. 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 The patient is already on Lipitor and aspirin. 4. Hypertension, on Norvasc 10 mg daily and p.r.n. hydralazine. 5. Uncontrolled diabetes, on insulin. 6. Leukocytosis, improving. 7. Acute on chronic renal failure. 8. Obesity. 9. Hyponatremia. 10. Right posterior heel DTI. MRI pending. Thank you very much for allowing me to participate in the care of this patient. Please do not hesitate to contact me for any questions regarding my evaluation. Shashi Tucker M.D. DR: MARGAUX JOB#: [id number] CC:
--- NOTE | 2019-05-23 19:54 | NUR ---
NURSE NOTES: Report received from Alma HINOJOSA. Patient is observed in bed, asleep, but arousable by tactile stimuli. Respiration even and unlabored. Iv site is asymptomatic, patent, and intact. IVF is running at a prescribed rate. Bed is in lowest position with side rails up x2 and brakes are engaged. Bed alarm is on. Will continue frequent monitoring.
[2019-05-23 20:18] VITALS: BP 131/78
--- NOTE | 2019-05-23 20:52 | General Progress Note ---
Assessment/Plan Problem List: (1) ARF (acute renal failure) ICD Codes: N17.9 - Acute kidney failure, unspecified SNOMED: 45677544, 740295357 Qualifiers: Qualified Codes: N17.9 - Acute kidney failure, unspecified (2) Obesity (BMI 30-39.9) ICD Codes: E66.9 - Obesity, unspecified SNOMED: 870857396, 181065390 (3) Acute encephalopathy ICD Codes: G93.40 - Encephalopathy, unspecified SNOMED: 54995038, 618710537 (4) Hyperglycemia due to type 2 diabetes mellitus ICD Codes: E11.65 - Type 2 diabetes mellitus with hyperglycemia SNOMED: 422229305033075, 11990964 Qualifiers: Qualified Codes: E11.65 - Type 2 diabetes mellitus with hyperglycemia (5) Hyponatremia ICD Codes: E87.1 - Hypo-osmolality and hyponatremia SNOMED: 44860383, 891412017 (6) Acute exacerbation of CHF (congestive heart failure) ICD Codes: I50.9 - Heart failure, unspecified SNOMED: 480970274, 84698905937387 Qualifiers: Qualified Codes: I50.9 - Heart failure, unspecified Status: progressing Assessment/Plan: afebrile more confused and lethargic due to possibly psych meds? niddm sugar is improving confused azotemia Subjective ROS Limited/Unobtainable: Yes Allergies: Coded Allergies: No Known Allergies (Unverified , 09/24/12) Objective Last 24 Hour Vital Signs Date Time Temp Pulse Resp B/P (MAP) Pulse Ox O2 Delivery O2 Flow Rate FiO2 05/23/19 20:18 97.9 84 20 131/78 (95) 98 05/23/19 16:00 75 05/23/19 15:57 97.5 84 20 119/70 (86) 98 05/23/19 12:00 77 05/23/19 12:00 98.1 81 20 98/57 (71) 98 05/23/19 09:00 85 127/67 05/23/19 09:00 Room Air 05/23/19 08:00 85 05/23/19 08:00 96.6 84 20 127/67 (87) 98 05/23/19 04:00 98.7 90 20 145/80 (101) 96 05/23/19 03:45 88 05/23/19 00:00 98.1 83 20 140/96 (111) 96 05/22/19 23:27 86 05/22/19 21:00 Room Air Intake and Output 05/22/19 05/23/19 19:00 07:00 Intake Total 360 ml 50 ml Output Total 1500 ml 2400 ml Balance -1140 ml -2350 ml Intake Oral 360 ml 50 ml Output Urine Total 1500 ml 2400 ml # Voids 1 1 Laboratory Tests 05/23/19 06:56: White Blood Count 12.1H, Red Blood Count 3.45L, Hemoglobin 10.1L, Hematocrit 28.1L, Mean Corpuscular Volume 82, Mean Corpuscular Hemoglobin 29.3, Mean Corpuscular Hemoglobin Concent 35.9, Red Cell Distribution Width 10.6L, Platelet Count 354, Mean Platelet Volume 6.1L, Neutrophils (%) (Auto) 77.5H, Lymphocytes (%) (Auto) 12.1L, Monocytes (%) (Auto) 9.2, Eosinophils (%) (Auto) 0.5, Basophils (%) (Auto) 0.7, Sodium Level 133L, Potassium Level 3.0L, Chloride Level 98, Carbon Dioxide Level 23, Anion Gap 12, Blood Urea Nitrogen 38H, Creatinine 3.4H, Estimat Glomerular Filtration Rate 18.1, Glucose Level 101 #, Hemoglobin A1c > 16.0H, Osmolality 285L, Uric Acid 8.4H, Calcium Level 7.6L, Phosphorus Level 4.5, Magnesium Level 1.8, Iron Level 23L, Total Iron Binding Capacity 210L, Percent Iron Saturation 11L, Unsaturated Iron Binding 187, Ferritin 60, Total Bilirubin 0.2, Gamma Glutamyl Transpeptidase 25, Aspartate Amino Transf (AST/SGOT) 24, Alanine Aminotransferase (ALT/SGPT) 16, Alkaline Phosphatase 83, Total Creatine Kinase 604H, Troponin I 0.041, C-Reactive Protein , Quantitative 6.0H, Pro-B-Type Natriuretic Peptide 28113O, Total Protein 6.4, Albumin 2.7L, Globulin 3.7, Albumin/Globulin Ratio 0.7L, Triglycerides Level 149 , Cholesterol Level 156, LDL Cholesterol 84, HDL Cholesterol 52, Cholesterol/ HDL Ratio 3.0L, Vitamin B12 Level 907, Folate 11.5, Thyroid Stimulating Hormone (TSH) 1.597 Height (Feet): 5 Height (Inches): 5.00 Weight (Pounds): 218 Cardiovascular: regular rhythm Respiratory/Chest: lungs clear Abdomen: soft Rosalba Estrada MD May 23, 2019 20:52
[2019-05-23] MEDS ORDERED: Levemir Flexpen SUBQ SCH (21:00)
[2019-05-23] MEDS: Atorvastatin 20mg tab ORAL SCH (21:06)
[2019-05-24] VITALS: BP 122/79
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
--- NOTE | 2019-05-24 00:46 | NUR ---
NURSE NOTES: Patient is asleep but arousable by voice. Respiratory even and unlabored. No c/o pain and/or discomfort at this time. Will continue to monitor.
[2019-05-24 04:00] VITALS: BP 142/70
[2019-05-24] MEDS: NovoLOG Insulin Flexpen SUBQ SCH ×4 (06:30→21:26)
--- NOTE | 2019-05-24 06:30 | General Progress Note ---
Assessment/Plan Problem List: (1) Hyponatremia ICD Codes: E87.1 - Hypo-osmolality and hyponatremia SNOMED: 21788132, 806084338 (2) ARF (acute renal failure) ICD Codes: N17.9 - Acute kidney failure, unspecified SNOMED: 21783790, 759755104 Qualifiers: Qualified Codes: N17.9 - Acute kidney failure, unspecified (3) Acute exacerbation of CHF (congestive heart failure) ICD Codes: I50.9 - Heart failure, unspecified SNOMED: 042905874, 56888073724441 Qualifiers: Qualified Codes: I50.9 - Heart failure, unspecified (4) Acute encephalopathy ICD Codes: G93.40 - Encephalopathy, unspecified SNOMED: 02894841, 206067701 (5) Hyperglycemia due to type 2 diabetes mellitus ICD Codes: E11.65 - Type 2 diabetes mellitus with hyperglycemia SNOMED: 620512582421668, 93761177 Qualifiers: Qualified Codes: E11.65 - Type 2 diabetes mellitus with hyperglycemia Status: progressing Assessment/Plan: change Levemir to 6 units bid DC Novolog 6 units ac tid continue Novolog sliding scale ac / hs Subjective Allergies: Coded Allergies: No Known Allergies (Unverified , 09/24/12) All Systems: reviewed and negative except above Subjective events noted Levemir 25 units was held last night - glucose was < 100 did not received any Novolog with meals yesterday - glucose was normal Item Value Date Time Bedside Blood Glucose 94 mg/dl 05/23/19 2130 Bedside Blood Glucose 101 mg/dl 05/23/19 1648 Bedside Blood Glucose 92 mg/dl 05/23/19 1150 Bedside Blood Glucose 102 mg/dl 05/23/19 0630 Objective Last 24 Hour Vital Signs Date Time Temp Pulse Resp B/P (MAP) Pulse Ox O2 Delivery O2 Flow Rate FiO2 05/24/19 04:00 77 05/24/19 04:00 97.9 85 20 142/70 (94) 98 05/24/19 00:00 97.3 81 20 122/79 (93) 98 05/23/19 23:28 77 05/23/19 21:31 Room Air 05/23/19 20:18 97.9 84 20 131/78 (95) 98 05/23/19 19:00 76 05/23/19 16:00 75 05/23/19 15:57 97.5 84 20 119/70 (86) 98 05/23/19 12:00 77 05/23/19 12:00 98.1 81 20 98/57 (71) 98 05/23/19 09:00 85 127/67 05/23/19 09:00 Room Air 05/23/19 08:00 85 05/23/19 08:00 96.6 84 20 127/67 (87) 98 Intake and Output 05/23/19 05/24/19 19:00 07:00 Output Total 750 ml Balance -750 ml Output Urine Total 750 ml Laboratory Tests 05/23/19 06:56: White Blood Count 12.1H, Red Blood Count 3.45L, Hemoglobin 10.1L, Hematocrit 28.1L, Mean Corpuscular Volume 82, Mean Corpuscular Hemoglobin 29.3, Mean Corpuscular Hemoglobin Concent 35.9, Red Cell Distribution Width 10.6L, Platelet Count 354, Mean Platelet Volume 6.1L, Neutrophils (%) (Auto) 77.5H, Lymphocytes (%) (Auto) 12.1L, Monocytes (%) (Auto) 9.2, Eosinophils (%) (Auto) 0.5, Basophils (%) (Auto) 0.7, Sodium Level 133L, Potassium Level 3.0L, Chloride Level 98, Carbon Dioxide Level 23, Anion Gap 12, Blood Urea Nitrogen 38H, Creatinine 3.4H, Estimat Glomerular Filtration Rate 18.1, Glucose Level 101 #, Hemoglobin A1c > 16.0H, Osmolality 285L, Uric Acid 8.4H, Calcium Level 7.6L, Phosphorus Level 4.5, Magnesium Level 1.8, Iron Level 23L, Total Iron Binding Capacity 210L, Percent Iron Saturation 11L, Unsaturated Iron Binding 187, Ferritin 60, Total Bilirubin 0.2, Gamma Glutamyl Transpeptidase 25, Aspartate Amino Transf (AST/SGOT) 24, Alanine Aminotransferase (ALT/SGPT) 16, Alkaline Phosphatase 83, Total Creatine Kinase 604H, Troponin I 0.041, C-Reactive Protein , Quantitative 6.0H, Pro-B-Type Natriuretic Peptide 54519K, Total Protein 6.4, Albumin 2.7L, Globulin 3.7, Albumin/Globulin Ratio 0.7L, Triglycerides Level 149 , Cholesterol Level 156, LDL Cholesterol 84, HDL Cholesterol 52, Cholesterol/ HDL Ratio 3.0L, Vitamin B12 Level 907, Folate 11.5, Thyroid Stimulating Hormone (TSH) 1.597 Height (Feet): 5 Height (Inches): 5.00 Weight (Pounds): 218 General Appearance: no apparent distress Neck: normal alignment Cardiovascular: normal rate Respiratory/Chest: lungs clear Abdomen: normal bowel sounds Pelvis: normal external exam Objective Current Medications Medications (Trade) Dose Ordered Sig/Brendon Route PRN Reason Start Time Stop Time Status Last Admin Dose Admin Amlodipine Besylate (Norvasc) 10 mg DAILY ORAL 05/22/19 10:00 06/21/19 09:59 05/22/19 11:55 Aspirin (ASA) 81 mg DAILY ORAL 05/22/19 10:15 07/06/19 10:14 05/23/19 10:56 Atorvastatin Calcium (Lipitor) 20 mg BEDTIME ORAL 05/22/19 21:00 08/20/19 20:59 05/23/19 21:06 Ceftriaxone Sodium 1 gm/ Dextrose 55 ml @ 110 mls/hr Q24H IVPB 05/22/19 11:00 05/29/19 10:59 05/23/19 11:00 Dextrose (Dextrose 50%) 25 ml Q30M PRN IV Hypoglycemia 05/23/19 07:00 08/21/19 06:59 Dextrose (Dextrose 50%) 50 ml Q30M PRN IV Hypoglycemia 05/23/19 07:00 08/21/19 06:59 Docusate Sodium (Colace) 100 mg THREE TIMES A DAY ORAL 05/22/19 13:00 06/21/19 12:59 05/23/19 13:00 Hydralazine HCl (Apresoline) 25 mg Q4H PRN ORAL bp over 160 syst 05/22/19 09:59 08/20/19 09:58 Insulin Aspart (NovoLOG) BEFORE MEALS AND HS SUBQ 05/22/19 21:00 08/20/19 20:59 05/22/19 20:25 Insulin Aspart (NovoLOG) 6 units NOVOTIAC SUBQ 05/23/19 11:50 08/21/19 11:49 Insulin Detemir (Levemir) 25 units QHS SUBQ 05/23/19 21:00 08/20/19 19:59 Lorazepam (Ativan) 1 mg Q4H PRN ORAL For Anxiety 05/22/19 18:30 05/29/19 18:29 05/22/19 23:21 Pantoprazole (Protonix) 40 mg EVERY 12 HOURS ORAL 05/22/19 10:00 06/21/19 09:59 05/23/19 21:06 Sitagliptin Phosphate (Januvia) 50 mg ACBREAKFAST ORAL 05/22/19 10:01 06/21/19 10:00 05/22/19 11:54 Sodium Chloride 1,000 ml @ 75 mls/hr [id number] IV 05/23/19 13:30 06/22/19 13:29 05/23/19 13:44 Henri Hernandes MD May 24, 2019 06:30
[2019-05-24] MEDS: sitaGLIPtin 50mg tab ORAL SCH (06:37)
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
[2019-05-24 07:26] LABS: BASOPHILS % (AUTO) 0.9 % (0.0-2.0); EOSINOPHILS % (AUTO) 1.4 % (0.0-3.0); HEMATOCRIT 29.4 % (42.0-52.0); HEMOGLOBIN 10.2 G/DL (14.2-18.0); LYMPHOCYTES % (AUTO) 15.3 % (20.0-45.0); MEAN CORPUSCULAR VOLUME 84 FL (80-99); MONOCYTES % (AUTO) 10.3 % (1.0-10.0); NEUTROPHILS % (AUTO) 72.1 % (45.0-75.0); PLATELET COUNT 351 K/UL (150-450); RED BLOOD COUNT 3.52 M/UL (4.70-6.10); RED CELL DISTRIBUTION WIDTH 11.4 % (11.6-14.8); WHITE BLOOD COUNT 8.2 K/UL (4.8-10.8)
--- NOTE | 2019-05-24 07:30 | NUR ---
NURSE NOTES: Received pt from EITAN HINOJOSA. Pt is awake and orient, pt is in RA, no SOB or acute respiratory distress noted. pt has intact iv access LH 22G is running well.Pt is eating breakfast by observation. Pt is on continues heart monitoring.no complain of pain at this moment. all needs attended, bed is locked and is in the lowest position, call light within easy reach. will continue to monitor.
--- NOTE | 2019-05-24 07:51 | NUR ---
HAND-OFF: Report given to Ajay HINOJOSA. Patient is in stable condition. Endorsed plan of care.
[2019-05-24 08:00] VITALS: BP 156/89
[2019-05-24 08:27] LABS: ALANINE AMINOTRANSFERASE 10 U/L (12-78); ALBUMIN 2.6 G/DL (3.4-5.0); ALBUMIN/GLOBULIN RATIO 0.8 (1.0-2.7); ALKALINE PHOSPHATASE 79 U/L (46-116); ANION GAP 9 mmol/L (5-15); ASPARTATE AMINO TRANSFERASE 15 U/L (15-37); BILIRUBIN,TOTAL 0.3 MG/DL (0.2-1.0); BLOOD UREA NITROGEN 41 mg/dL (7-18); CALCIUM 8.1 MG/DL (8.5-10.1); CARBON DIOXIDE 26 MMOL/L (21-32); CHLORIDE 101 MMOL/L (98-107); CREATININE 3.9 MG/DL (0.55-1.30); PHOSPHORUS 4.9 MG/DL (2.5-4.9); POTASSIUM 3.6 MMOL/L (3.5-5.1); SODIUM 136 MMOL/L (136-145)
[2019-05-24] MEDS: Docusate 100mg cap ORAL SCH ×3 (08:48→17:14)
[2019-05-24] MEDS: Aspirin Baby 81mg ORAL SCH (08:48)
[2019-05-24] MEDS: Levemir Flexpen SUBQ SCH ×2 (09:00→17:15)
[2019-05-24] MEDS: cefTRIAXone 1 GM in D5W 55 ML IVPB SCH (11:28)
--- NOTE | 2019-05-24 11:31 | Cardiac Electrophysiology PN ---
Assessment/Plan Assessment/Plan 1. Elevated BNP of more than 14,000, possible congestive heart failure. Echocardiogram showed ejection fraction of 55%. Already ruled out for myocardial infarction. BNP down to 7K 2. Severe aortic stenosis with aortic valve area of 0.5 Awaiting final echocardiogram reading. 3. 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 On Lipitor, Norvasc and aspirin. 4. Hypertension, on Norvasc 10 mg daily and p.r.n. hydralazine. 5. Uncontrolled diabetes, on insulin. 6. Leukocytosis, improving. 7. Acute on chronic renal failure. 8. Obesity. 9. Hyponatremia. 10. Right posterior heel DTI. MRI pending reults DW RN Subjective Subjective Had Right foot MRI today. In SR. No CP or SOB Objective Last 24 Hour Vital Signs Date Time Temp Pulse Resp B/P (MAP) Pulse Ox O2 Delivery O2 Flow Rate FiO2 05/24/19 08:48 97 156/89 05/24/19 08:00 100.0 97 20 156/89 (111) 96 05/24/19 07:45 89 05/24/19 04:00 77 05/24/19 04:00 97.9 85 20 142/70 (94) 98 05/24/19 00:00 97.3 81 20 122/79 (93) 98 05/23/19 23:28 77 05/23/19 21:31 Room Air 05/23/19 20:18 97.9 84 20 131/78 (95) 98 05/23/19 19:00 76 05/23/19 16:00 75 05/23/19 15:57 97.5 84 20 119/70 (86) 98 05/23/19 12:00 77 05/23/19 12:00 98.1 81 20 98/57 (71) 98 Intake and Output 05/23/19 05/24/19 19:00 07:00 Output Total 750 ml 700 ml Balance -750 ml -700 ml Output Urine Total 750 ml 700 ml Laboratory Tests Test 05/24/19 06:23 White Blood Count 8.2 K/UL (4.8-10.8) Red Blood Count 3.52 M/UL (4.70-6.10) L Hemoglobin 10.2 G/DL (14.2-18.0) L Hematocrit 29.4 % (42.0-52.0) L Mean Corpuscular Volume 84 FL (80-99) Mean Corpuscular Hemoglobin 29.0 PG (27.0-31.0) Mean Corpuscular Hemoglobin Concent 34.7 G/DL (32.0-36.0) Red Cell Distribution Width 11.4 % (11.6-14.8) L Platelet Count 351 K/UL (150-450) Mean Platelet Volume 6.0 FL (6.5-10.1) L Neutrophils (%) (Auto) 72.1 % (45.0-75.0) Lymphocytes (%) (Auto) 15.3 % (20.0-45.0) L Monocytes (%) (Auto) 10.3 % (1.0-10.0) H Eosinophils (%) (Auto) 1.4 % (0.0-3.0) Basophils (%) (Auto) 0.9 % (0.0-2.0) Sodium Level 136 MMOL/L (136-145) Potassium Level 3.6 MMOL/L (3.5-5.1) Chloride Level 101 MMOL/L (98-107) Carbon Dioxide Level 26 MMOL/L (21-32) Anion Gap 9 mmol/L (5-15) Blood Urea Nitrogen 41 mg/dL (7-18) H Creatinine 3.9 MG/DL (0.55-1.30) H Estimat Glomerular Filtration Rate 15.5 mL/min (>60) Glucose Level 145 MG/DL (74-106) H Uric Acid 9.1 MG/DL (2.6-7.2) H Calcium Level 8.1 MG/DL (8.5-10.1) L Phosphorus Level 4.9 MG/DL (2.5-4.9) Magnesium Level 2.1 MG/DL (1.8-2.4) Total Bilirubin 0.3 MG/DL (0.2-1.0) Aspartate Amino Transf (AST/SGOT) 15 U/L (15-37) Alanine Aminotransferase (ALT/SGPT) 10 U/L (12-78) L Alkaline Phosphatase 79 U/L (46-116) Troponin I 0.030 ng/mL (0.000-0.056) C-Reactive Protein, Quantitative 8.0 mg/dL (0.00-0.90) H Pro-B-Type Natriuretic Peptide 7209 pg/mL (0-125) H Total Protein 5.8 G/DL (6.4-8.2) L Albumin 2.6 G/DL (3.4-5.0) L Globulin 3.2 g/dL Albumin/Globulin Ratio 0.8 (1.0-2.7) L Objective HEAD AND NECK: No JVD. LUNGS: Coarse rhonchi. CARDIOVASCULAR: Regular S1 and S2 with no gallop or murmur. Sternotomy scar is healed. ABDOMEN: Soft. EXTREMITIES: Ulcer in the heel as well as ulcer in the right lateral thigh. Shashi Tucker MD May 24, 2019 11:31
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
--- NOTE | 2019-05-24 11:52 | Infectious Diseases Prog Note ---
Assessment/Plan Assessment/Plan IMPRESSION: 1. Leukocytosis improving 2. Renal failure, likely acute on chronic. 3. Diabetes mellitus with hyperglycemia. 4. Hypertension. 5. Obesity. 6. Hyponatremia. RECOMMENDATION: Continue with ceftriaxone. We will follow up the right foot MRI Subjective ROS Limited/Unobtainable: No Constitutional: Reports: fever, other - [id number] Respiratory: Reports: no symptoms Gastrointestinal/Abdominal: Reports: no symptoms Genitourinary: Reports: no symptoms Allergies: Coded Allergies: No Known Allergies (Unverified , 09/24/12) Objective Vital Signs Last 24 Hour Vital Signs Date Time Temp Pulse Resp B/P (MAP) Pulse Ox O2 Delivery O2 Flow Rate FiO2 05/24/19 08:48 97 156/89 05/24/19 08:00 100.0 97 20 156/89 (111) 96 05/24/19 07:45 89 05/24/19 04:00 77 05/24/19 04:00 97.9 85 20 142/70 (94) 98 05/24/19 00:00 97.3 81 20 122/79 (93) 98 05/23/19 23:28 77 05/23/19 21:31 Room Air 05/23/19 20:18 97.9 84 20 131/78 (95) 98 05/23/19 19:00 76 05/23/19 16:00 75 05/23/19 15:57 97.5 84 20 119/70 (86) 98 05/23/19 12:00 77 05/23/19 12:00 98.1 81 20 98/57 (71) 98 Height (Feet): 5 Height (Inches): 5.00 Weight (Pounds): 218 General Appearance: no acute distress HEENT: mucous membranes moist Respiratory/Chest: lungs clear Cardiovascular: normal rate Abdomen: soft, non tender Extremities: no edema Skin: ulcers, other - left knee, erythema of right heal Neurologic/Psychiatric: alert, responsive Laboratory Tests Test 05/24/19 06:23 White Blood Count 8.2 K/UL (4.8-10.8) Red Blood Count 3.52 M/UL (4.70-6.10) L Hemoglobin 10.2 G/DL (14.2-18.0) L Hematocrit 29.4 % (42.0-52.0) L Mean Corpuscular Volume 84 FL (80-99) Mean Corpuscular Hemoglobin 29.0 PG (27.0-31.0) Mean Corpuscular Hemoglobin Concent 34.7 G/DL (32.0-36.0) Red Cell Distribution Width 11.4 % (11.6-14.8) L Platelet Count 351 K/UL (150-450) Mean Platelet Volume 6.0 FL (6.5-10.1) L Neutrophils (%) (Auto) 72.1 % (45.0-75.0) Lymphocytes (%) (Auto) 15.3 % (20.0-45.0) L Monocytes (%) (Auto) 10.3 % (1.0-10.0) H Eosinophils (%) (Auto) 1.4 % (0.0-3.0) Basophils (%) (Auto) 0.9 % (0.0-2.0) Sodium Level 136 MMOL/L (136-145) Potassium Level 3.6 MMOL/L (3.5-5.1) Chloride Level 101 MMOL/L (98-107) Carbon Dioxide Level 26 MMOL/L (21-32) Anion Gap 9 mmol/L (5-15) Blood Urea Nitrogen 41 mg/dL (7-18) H Creatinine 3.9 MG/DL (0.55-1.30) H Estimat Glomerular Filtration Rate 15.5 mL/min (>60) Glucose Level 145 MG/DL (74-106) H Uric Acid 9.1 MG/DL (2.6-7.2) H Calcium Level 8.1 MG/DL (8.5-10.1) L Phosphorus Level 4.9 MG/DL (2.5-4.9) Magnesium Level 2.1 MG/DL (1.8-2.4) Total Bilirubin 0.3 MG/DL (0.2-1.0) Aspartate Amino Transf (AST/SGOT) 15 U/L (15-37) Alanine Aminotransferase (ALT/SGPT) 10 U/L (12-78) L Alkaline Phosphatase 79 U/L (46-116) Troponin I 0.030 ng/mL (0.000-0.056) C-Reactive Protein, Quantitative 8.0 mg/dL (0.00-0.90) H Pro-B-Type Natriuretic Peptide 7209 pg/mL (0-125) H Total Protein 5.8 G/DL (6.4-8.2) L Albumin 2.6 G/DL (3.4-5.0) L Globulin 3.2 g/dL Albumin/Globulin Ratio 0.8 (1.0-2.7) L Current Medications Medications (Trade) Dose Ordered Sig/Brendon Route PRN Reason Start Time Stop Time Status Last Admin Dose Admin Amlodipine Besylate (Norvasc) 10 mg DAILY ORAL 05/22/19 10:00 06/21/19 09:59 05/24/19 08:48 Aspirin (ASA) 81 mg DAILY ORAL 05/22/19 10:15 07/06/19 10:14 05/24/19 08:48 Atorvastatin Calcium (Lipitor) 20 mg BEDTIME ORAL 05/22/19 21:00 08/20/19 20:59 05/23/19 21:06 Ceftriaxone Sodium 1 gm/ Dextrose 55 ml @ 110 mls/hr Q24H IVPB 05/22/19 11:00 05/29/19 10:59 05/24/19 11:28 Dextrose (Dextrose 50%) 25 ml Q30M PRN IV Hypoglycemia 05/23/19 07:00 08/21/19 06:59 Dextrose (Dextrose 50%) 50 ml Q30M PRN IV Hypoglycemia 05/23/19 07:00 08/21/19 06:59 Docusate Sodium (Colace) 100 mg THREE TIMES A DAY ORAL 05/22/19 13:00 06/21/19 12:59 05/24/19 08:48 Hydralazine HCl (Apresoline) 25 mg Q4H PRN ORAL bp over 160 syst 05/22/19 09:59 08/20/19 09:58 Insulin Aspart (NovoLOG) BEFORE MEALS AND HS SUBQ 05/22/19 21:00 08/20/19 20:59 05/24/19 11:37 Insulin Detemir (Levemir) 6 units BID SUBQ 05/24/19 09:00 08/20/19 19:59 05/24/19 09:00 Iron Sucrose 100 mg/Sodium Chloride 60 ml @ 240 mls/hr BEDTIME IV 05/24/19 21:00 05/28/19 21:14 Lorazepam (Ativan) 1 mg Q4H PRN ORAL For Anxiety 05/22/19 18:30 05/29/19 18:29 05/22/19 23:21 Pantoprazole (Protonix) 40 mg EVERY 12 HOURS ORAL 05/22/19 10:00 06/21/19 09:59 05/24/19 08:48 Sitagliptin Phosphate (Januvia) 50 mg ACBREAKFAST ORAL 05/22/19 10:01 06/21/19 10:00 05/24/19 06:37 Sodium Chloride 1,000 ml @ 75 mls/hr [id number] IV 05/23/19 13:30 06/22/19 13:29 05/23/19 13:44 Kavon Beasley MD May 24, 2019 11:52
[2019-05-24 12:00] VITALS: BP 157/82
--- NOTE | 2019-05-24 14:00 | NUR ---
RD ASSESSMENT & RECOMMENDATIONS SEE CARE ACTIVITY FOR COMPLETE ASSESSMENT DAILY ESTIMATED NEEDS: Needs based on wound, DM, renal 66.4kg 25-30 kcals/kg 4712-2063 total kcals 1.25-1.5 g protein/kg 83-100 g total protein Fluid per MD NUTRITION DIAGNOSIS: Swallowing difficulty r/t possible aspiration risk, dysphagia as evidenced by s/p [employer] CON[employer]ER eval w/ recs for ms ground texture diet. CURRENT DIET:Renal/ ccho med ms ground PO DIET RECOMMENDATIONS: Maintain CCHO MED/ RENAL diet ADDITIONAL RECOMMENDATIONS: 1) Obtain a calibrated bed scale d/t conflicting wts: EMR wt: 218# vs Bed wt: 176# 2) Monitor po intake, need for snacks, [place] Rec to hold psychotropic meds near mealtime 3) F/up w/ wound eval, podiatry eval-> add MIGEL BID 4) Monitor for hypoglycemia 5) rec to redraw for HgA1C
[2019-05-24] MEDS ORDERED: Metoprolol Tartrate 12.5mg TAB ORAL SCH (14:30)
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
[2019-05-24 15:54] VITALS: BP 129/61
--- NOTE | 2019-05-24 16:00 | Diagnostic Imaging Report ---
Indication: Right foot pain "open wound plantar heel Technique: Right foot imaging utilizing multiplanar T1 fast spin-echo, proton and T2 fast spin-echo with fat saturation, and STIR. Comparison: None Findings: There is subcutaneous edema and skin thickening in the plantar part of the foot adjacent to the calcaneus. There is a small focus of peripheral T2 hyperintense/T1 hypointense signal in one location. This could be osteomyelitis or reactive bone marrow edema. There is no abscess. Degenerative changes of the midfoot noted with joint space narrowing and osteophytes. IMPRESSION: Superficial cortical and periosteal edema posterior part of the calcaneus adjacent to the area of cellulitis. Findings could be due to osteomyelitis although localized reactive periostitis is favored.
--- NOTE | 2019-05-24 19:10 | NUR ---
HAND-OFF: Report given to BEAR HINOJOSA. Pt is awake and stable.
--- NOTE | 2019-05-24 19:16 | NUR ---
NURSE NOTES: Received report from MICAELA Rdz. Initial rounding done, pt resting in bed, awake confused, oriented to self, restless and pulled IV out. No apparent cv distress noted, repositioned pt, bed alarm on. will monitor closely.
[2019-05-24 20:00] VITALS: BP 159/89
--- NOTE | 2019-05-24 21:07 | General Progress Note ---
Assessment/Plan Problem List: (1) ARF (acute renal failure) ICD Codes: N17.9 - Acute kidney failure, unspecified SNOMED: 32400174, 769686661 Qualifiers: Qualified Codes: N17.9 - Acute kidney failure, unspecified (2) Obesity (BMI 30-39.9) ICD Codes: E66.9 - Obesity, unspecified SNOMED: 313839731, 670046499 (3) Acute encephalopathy ICD Codes: G93.40 - Encephalopathy, unspecified SNOMED: 80850973, 177623296 (4) Hyperglycemia due to type 2 diabetes mellitus ICD Codes: E11.65 - Type 2 diabetes mellitus with hyperglycemia SNOMED: 514141293358150, 11226276 Qualifiers: Qualified Codes: E11.65 - Type 2 diabetes mellitus with hyperglycemia (5) Hyponatremia ICD Codes: E87.1 - Hypo-osmolality and hyponatremia SNOMED: 06439652, 615023147 (6) Acute exacerbation of CHF (congestive heart failure) ICD Codes: I50.9 - Heart failure, unspecified SNOMED: 251009857, 13874257533601 Qualifiers: Qualified Codes: I50.9 - Heart failure, unspecified Status: progressing Assessment/Plan: more alert obesity arf is improving no fever niddm sugar is improving confused azotemia Subjective ROS Limited/Unobtainable: Yes Allergies: Coded Allergies: No Known Allergies (Unverified , 09/24/12) Objective Last 24 Hour Vital Signs Date Time Temp Pulse Resp B/P (MAP) Pulse Ox O2 Delivery O2 Flow Rate FiO2 05/24/19 16:01 85 05/24/19 15:54 99.1 85 20 129/61 (83) 97 05/24/19 15:32 93 157/82 05/24/19 12:00 99.0 93 20 157/82 (107) 97 05/24/19 11:52 87 05/24/19 09:00 Room Air 05/24/19 08:48 97 156/89 05/24/19 08:00 100.0 97 20 156/89 (111) 96 05/24/19 07:45 89 05/24/19 04:00 77 05/24/19 04:00 97.9 85 20 142/70 (94) 98 05/24/19 00:00 97.3 81 20 122/79 (93) 98 05/23/19 23:28 77 05/23/19 21:31 Room Air Intake and Output 05/23/19 05/24/19 19:00 07:00 Output Total 750 ml 700 ml Balance -750 ml -700 ml Output Urine Total 750 ml 700 ml Laboratory Tests 05/24/19 06:23: White Blood Count 8.2, Red Blood Count 3.52L, Hemoglobin 10.2L, Hematocrit 29.4L , Mean Corpuscular Volume 84, Mean Corpuscular Hemoglobin 29.0, Mean Corpuscular Hemoglobin Concent 34.7, Red Cell Distribution Width 11.4L, Platelet Count 351, Mean Platelet Volume 6.0L, Neutrophils (%) (Auto) 72.1, Lymphocytes (%) (Auto) 15.3L, Monocytes (%) (Auto) 10.3H, Eosinophils (%) (Auto ) 1.4, Basophils (%) (Auto) 0.9, Sodium Level 136, Potassium Level 3.6, Chloride Level 101, Carbon Dioxide Level 26, Anion Gap 9, Blood Urea Nitrogen 41H, Creatinine 3.9H, Estimat Glomerular Filtration Rate 15.5, Glucose Level 145H, Uric Acid 9.1H, Calcium Level 8.1L, Phosphorus Level 4.9, Magnesium Level 2.1, Total Bilirubin 0.3, Aspartate Amino Transf (AST/SGOT) 15, Alanine Aminotransferase (ALT/SGPT) 10L, Alkaline Phosphatase 79, Troponin I 0.030, C- Reactive Protein, Quantitative 8.0H, Pro-B-Type Natriuretic Peptide 7209H, Total Protein 5.8L, Albumin 2.6L, Globulin 3.2, Albumin/Globulin Ratio 0.8L Height (Feet): 5 Height (Inches): 5.00 Weight (Pounds): 218 Respiratory/Chest: lungs clear Rosalba Estrada MD May 24, 2019 21:07
[2019-05-24] MEDS: Atorvastatin 20mg tab ORAL SCH (21:27)
[2019-05-24] MEDS: Iron Sucrose 100 MG in NS 55 ML IV SCH (21:28)
[2019-05-24] MEDS: Metoprolol Tartrate 12.5mg TAB ORAL SCH (21:28)
--- NOTE | 2019-05-24 22:20 | NUR ---
Repositioned pt, bed alarm setting on. Tiffany, charge nurse placed a new IV access to LFA, secure with Kerlix to prevent pt pulling. Reconnect IVF and started Venofer. Frequent rounding implemented, will monitor closely.
--- NOTE | 2019-05-24 23:15 | Progress Note ---
DATE: 05/24/2019 SUBJECTIVE: The patient was resting, arousable, confused, not able to be engaged and answer the questions appropriately. episodes of agitation. MENTAL STATUS EXAMINATION: The patient is alert, oriented times self. Mood is anxious. Affect is flat. Thought process is concrete. Thought content, no suicidal or homicidal ideation. Cognition is impaired. Insight and judgment is impaired. ASSESSMENT: 1. Dementia. 2. Acute encephalopathy. PLAN: 1. Continue current medications. 2. Provide the patient with reality orientation and supportive therapy. Vamshi Amador M.D. DR: STAS JOB#: [id number] CC:
[2019-05-25] VITALS (14 sets, daily range): BP systolic 123–152; BP diastolic 61–83
[2019-05-25] MEDS: sitaGLIPtin 50mg tab ORAL SCH (05:48)
[2019-05-25] MEDS: NovoLOG Insulin Flexpen SUBQ SCH ×4 (05:49→21:00)
--- NOTE | 2019-05-25 07:30 | NUR ---
HAND-OFF: Report given to MICAELA Marquez.
--- NOTE | 2019-05-25 07:30 | NUR ---
NURSE NOTES: recvd pt, unrestrained, pt found sitting at edge of the bed. Pt is AOx2 (name and place), pt is on room air with no sign of sob or resp distress. pt was repositioned to center of bed. bed alarm was placed, bed in lowest locked position, will continue with plan of care.
--- NOTE | 2019-05-25 08:11 | NUR ---
NURSE NOTES: Pt was found sitting on the edge of the floor on the right side of the bed. Pt was reassessed for new injuries, no new injuries noted. Pt mentation continue the same AOx2. VSS taken BP 148/65. Called BRICK BAKER, Dope Edger Lynda notified. Will notify Dr Estrada and DR Amador to renew restraints. Completion of incident report will follow. Addendum: 05/25/19 at 0823 by SHAAN AZEVEDO RN requesting to initiate order for bilat soft restraints
--- NOTE | 2019-05-25 08:12 | Hematology/Onc Progress Note ---
Assessment/Plan Assessment/Plan Assessment and Recs; # Anemia of iron deficiency, likelty multifactorial --> obtain anemia panel==> low ferritin is noted --> occult blood ordered as well --> smear ordered' --> IV IRON Has been started 05/23 # Acute encephalopathy, r/o med relation --> r/o neuro cause --> as per psych management --> ct brain is neg # Acute exacerbation of CHF (congestive heart failure) --> seen by cards --> recs noted --> diuresis prn # Niddm --> accuchecks qac and qhs --> hgb a1c goal <8 # Renal failure most likely acute superimposed on chronic -> Most likely diabetic nephropathy due to proteinuria and renal failure # Severe hyponatremia # Dementia # Obesity # Skin ulcerations over her lower extremity appears to be recent burn Appreciate consultation and dw Rn Subjective Constitutional: Denies: no symptoms, chills, fever, malaise, weakness, other HEENT: Denies: no symptoms, eye pain, blurred vision, tearing, double vision, ear pain, ear discharge, nose pain, nose congestion, throat pain, throat swelling, mouth pain, mouth swelling, other Cardiovascular: Denies: no symptoms, chest pain, edema, irregular heart rate, lightheadedness, palpitations, syncope, other Respiratory: Denies: no symptoms, cough, shortness of breath, SOB with excertion, SOB at rest, sputum, wheezing, other Gastrointestinal/Abdominal: Denies: no symptoms, abdomen distended, abdominal pain, black stools, tarry stools, blood in stool, constipated, diarrhea, difficulty swallowing, nausea, poor appetite, poor fluid intake, rectal bleeding , vomiting, other Genitourinary: Denies: no symptoms, burning, discharge, frequency, flank pain, hematuria, incontinence, pain, urgency, other Neurologic/Psychiatric: Denies: no symptoms, anxiety, depressed, emotional problems, headache, numbness, paresthesia, pre-existing deficit, seizure, tingling, tremors, weakness, other Endocrine: Denies: no symptoms, excessive sweating, flushing, intolerance to cold, intolerance to heat, increased hunger, increased thirst, increased urine, unexplained weight gain, unexplained weight loss, other Hematologic/Lymphatic: Denies: no symptoms, anemia, easy bleeding, easy bruising, adenopathy, other Allergies: Coded Allergies: No Known Allergies (Unverified , 09/24/12) Subjective 05/24 still remains confused, labs are noted, no night sweats, no bleeding Objective Objective Current Medications Medications (Trade) Dose Ordered Sig/Brendon Route PRN Reason Start Time Stop Time Status Last Admin Dose Admin Allopurinol (allopurinoL) 300 mg DAILY ORAL 05/25/19 09:00 06/24/19 08:59 Amlodipine Besylate (Norvasc) 10 mg DAILY ORAL 05/22/19 10:00 06/21/19 09:59 05/24/19 08:48 Aspirin (ASA) 81 mg DAILY ORAL 05/22/19 10:15 07/06/19 10:14 05/24/19 08:48 Atorvastatin Calcium (Lipitor) 20 mg BEDTIME ORAL 05/22/19 21:00 08/20/19 20:59 05/24/19 21:27 Ceftriaxone Sodium 1 gm/ Dextrose 55 ml @ 110 mls/hr Q24H IVPB 05/22/19 11:00 05/29/19 10:59 05/24/19 11:28 Dextrose (Dextrose 50%) 25 ml Q30M PRN IV Hypoglycemia 05/23/19 07:00 08/21/19 06:59 Dextrose (Dextrose 50%) 50 ml Q30M PRN IV Hypoglycemia 05/23/19 07:00 08/21/19 06:59 Docusate Sodium (Colace) 100 mg THREE TIMES A DAY ORAL 05/22/19 13:00 06/21/19 12:59 05/24/19 17:14 Hydralazine HCl (Apresoline) 25 mg Q4H PRN ORAL bp over 160 syst 05/22/19 09:59 08/20/19 09:58 Insulin Aspart (NovoLOG) BEFORE MEALS AND HS SUBQ 05/22/19 21:00 08/20/19 20:59 05/25/19 05:49 Insulin Detemir (Levemir) 6 units BID SUBQ 05/24/19 09:00 08/20/19 19:59 05/24/19 17:15 Iron Sucrose 100 mg/Sodium Chloride 60 ml @ 240 mls/hr BEDTIME IV 05/24/19 21:00 05/28/19 21:14 05/24/19 21:28 Lorazepam (Ativan) 1 mg Q4H PRN ORAL For Anxiety 05/22/19 18:30 05/29/19 18:29 05/22/19 23:21 Metoprolol Tartrate (Lopressor) 12.5 mg Q12HR ORAL 05/24/19 21:00 08/22/19 20:59 05/24/19 21:28 Pantoprazole (Protonix) 40 mg EVERY 12 HOURS ORAL 05/22/19 10:00 06/21/19 09:59 05/24/19 21:27 Sitagliptin Phosphate (Januvia) 50 mg ACBREAKFAST ORAL 05/22/19 10:01 06/21/19 10:00 05/25/19 05:48 Sodium Chloride 1,000 ml @ 75 mls/hr [id number] IV 05/23/19 13:30 06/22/19 13:29 05/25/19 02:52 Last 24 Hour Vital Signs Date Time Temp Pulse Resp B/P (MAP) Pulse Ox O2 Delivery O2 Flow Rate FiO2 05/25/19 04:00 86 05/25/19 04:00 Room Air 05/25/19 04:00 98.2 86 20 152/78 (102) 94 05/25/19 00:00 98.2 89 20 144/83 (103) 95 05/25/19 00:00 Room Air 05/25/19 00:00 89 05/24/19 21:28 87 159/89 05/24/19 21:00 Room Air 05/24/19 20:00 75 05/24/19 20:00 98.2 87 20 159/89 (112) 97 05/24/19 16:01 85 05/24/19 15:54 99.1 85 20 129/61 (83) 97 05/24/19 15:32 93 157/82 05/24/19 12:00 99.0 93 20 157/82 (107) 97 05/24/19 11:52 87 05/24/19 09:00 Room Air 05/24/19 08:48 97 156/89 05/24/19 08:00 100.0 97 20 156/89 (111) 96 05/24/19 07:45 89 05/24/19 04:00 77 05/24/19 04:00 97.9 85 20 142/70 (94) 98 05/24/19 00:00 97.3 81 20 122/79 (93) 98 05/23/19 23:28 77 05/23/19 21:31 Room Air 05/23/19 20:18 97.9 84 20 131/78 (95) 98 05/23/19 19:00 76 05/23/19 16:00 75 05/23/19 15:57 97.5 84 20 119/70 (86) 98 05/23/19 12:00 77 05/23/19 12:00 98.1 81 20 98/57 (71) 98 05/23/19 09:00 85 127/67 05/23/19 09:00 Room Air Intake and Output 05/24/19 05/25/19 19:00 07:00 Intake Total 1675 ml 435 ml Output Total 850 ml 1700 ml Balance 825 ml -1265 ml Intake Oral 720 ml IV Total 955 ml 435 ml Output Urine Total 850 ml 1700 ml Labs Test 05/23/19 06:56 05/24/19 06:23 White Blood Count 12.1 K/UL (4.8-10.8) 8.2 K/UL (4.8-10.8) Red Blood Count 3.45 M/UL (4.70-6.10) 3.52 M/UL (4.70-6.10) Hemoglobin 10.1 G/DL (14.2-18.0) 10.2 G/DL (14.2-18.0) Hematocrit 28.1 % (42.0-52.0) 29.4 % (42.0-52.0) Mean Corpuscular Volume 82 FL (80-99) 84 FL (80-99) Mean Corpuscular Hemoglobin 29.3 PG (27.0-31.0) 29.0 PG (27.0-31.0) Mean Corpuscular Hemoglobin Concent 35.9 G/DL (32.0-36.0) 34.7 G/DL (32.0-36.0) Red Cell Distribution Width 10.6 % (11.6-14.8) 11.4 % (11.6-14.8) Platelet Count 354 K/UL (150-450) 351 K/UL (150-450) Mean Platelet Volume 6.1 FL (6.5-10.1) 6.0 FL (6.5-10.1) Neutrophils (%) (Auto) 77.5 % (45.0-75.0) 72.1 % (45.0-75.0) Lymphocytes (%) (Auto) 12.1 % (20.0-45.0) 15.3 % (20.0-45.0) Monocytes (%) (Auto) 9.2 % (1.0-10.0) 10.3 % (1.0-10.0) Eosinophils (%) (Auto) 0.5 % (0.0-3.0) 1.4 % (0.0-3.0) Basophils (%) (Auto) 0.7 % (0.0-2.0) 0.9 % (0.0-2.0) Sodium Level 133 MMOL/L (136-145) 136 MMOL/L (136-145) Potassium Level 3.0 MMOL/L (3.5-5.1) 3.6 MMOL/L (3.5-5.1) Chloride Level 98 MMOL/L (98-107) 101 MMOL/L (98-107) Carbon Dioxide Level 23 MMOL/L (21-32) 26 MMOL/L (21-32) Anion Gap 12 mmol/L (5-15) 9 mmol/L (5-15) Blood Urea Nitrogen 38 mg/dL (7-18) 41 mg/dL (7-18) Creatinine 3.4 MG/DL (0.55-1.30) 3.9 MG/DL (0.55-1.30) Estimat Glomerular Filtration Rate 18.1 mL/min (>60) 15.5 mL/min (>60) Glucose Level 101 MG/DL (74-106) 145 MG/DL (74-106) Hemoglobin A1c > 16.0 % (4.3-6.0) Osmolality 285 mOsm/kg (297-317) Uric Acid 8.4 MG/DL (2.6-7.2) 9.1 MG/DL (2.6-7.2) Calcium Level 7.6 MG/DL (8.5-10.1) 8.1 MG/DL (8.5-10.1) Phosphorus Level 4.5 MG/DL (2.5-4.9) 4.9 MG/DL (2.5-4.9) Magnesium Level 1.8 MG/DL (1.8-2.4) 2.1 MG/DL (1.8-2.4) Iron Level 23 ug/dL (50-175) Total Iron Binding Capacity 210 ug/dL (250-450) Percent Iron Saturation 11 % (15-50) Unsaturated Iron Binding 187 ug/dL (112-346) Ferritin 60 NG/ML (8-388) Total Bilirubin 0.2 MG/DL (0.2-1.0) 0.3 MG/DL (0.2-1.0) Gamma Glutamyl Transpeptidase 25 U/L (5-85) Aspartate Amino Transf (AST/SGOT) 24 U/L (15-37) 15 U/L (15-37) Alanine Aminotransferase (ALT/SGPT) 16 U/L (12-78) 10 U/L (12-78) Alkaline Phosphatase 83 U/L (46-116) 79 U/L (46-116) Total Creatine Kinase 604 U/L (26-308) Troponin I 0.041 ng/mL (0.000-0.056) 0.030 ng/mL (0.000-0.056) C-Reactive Protein, Quantitative 6.0 mg/dL (0.00-0.90) 8.0 mg/dL (0.00-0.90) Pro-B-Type Natriuretic Peptide 99214 pg/mL (0-125) 7209 pg/mL (0-125) Total Protein 6.4 G/DL (6.4-8.2) 5.8 G/DL (6.4-8.2) Albumin 2.7 G/DL (3.4-5.0) 2.6 G/DL (3.4-5.0) Globulin 3.7 g/dL 3.2 g/dL Albumin/Globulin Ratio 0.7 (1.0-2.7) 0.8 (1.0-2.7) Triglycerides Level 149 MG/DL (30-150) Cholesterol Level 156 MG/DL (< 200) LDL Cholesterol 84 mg/dL (<100) HDL Cholesterol 52 MG/DL (40-60) Cholesterol/HDL Ratio 3.0 (3.3-4.4) Vitamin B12 Level 907 PG/ML (193-986) Folate 11.5 NG/ML (8.6-58.9) Thyroid Stimulating Hormone (TSH) 1.597 uiU/mL (0.358-3.740) Height (Feet): 5 Height (Inches): 5.00 Weight (Pounds): 179 Objective Physical Exam Vitals: reviewed Gen: well appearing, no apparent distress, alert, obese Heent: nc, at Neck: full range of motion, supple, no meningismus Respiratory: chest non-tender, lungs clear, normal breath sounds Cardiovascular: regular rate, rhythm, no murmur GI: normal bowel sounds, non tender, no mass, no organomegaly + Reducible umbilical hernia Msk: back normal, normal range of motion Neurologic: other - Left arm appear to be weaker than right Psychiatric: ++ Confused : ++ John Cosby MD May 25, 2019 08:12
--- NOTE | 2019-05-25 08:17 | NUR ---
NURSE NOTES: bed alarm was disarmed by mica miner. spoke to mica miner and educated on pt inability to ambulate and his high risk for falls.
--- NOTE | 2019-05-25 08:20 | NUR ---
NURSE NOTES: Left message for dr Amador notifying of fall and requesting to initiate bilat soft restraints. Pt has hx of multiple falls.
--- NOTE | 2019-05-25 08:32 | General Progress Note ---
Assessment/Plan Problem List: (1) Hyponatremia ICD Codes: E87.1 - Hypo-osmolality and hyponatremia SNOMED: 33288288, 213383887 (2) ARF (acute renal failure) ICD Codes: N17.9 - Acute kidney failure, unspecified SNOMED: 77494269, 962292717 Qualifiers: Qualified Codes: N17.9 - Acute kidney failure, unspecified (3) Acute exacerbation of CHF (congestive heart failure) ICD Codes: I50.9 - Heart failure, unspecified SNOMED: 962563753, [id number] Qualifiers: Qualified Codes: I50.9 - Heart failure, unspecified (4) Acute encephalopathy ICD Codes: G93.40 - Encephalopathy, unspecified SNOMED: 12691879, 931339895 (5) Hyperglycemia due to type 2 diabetes mellitus ICD Codes: E11.65 - Type 2 diabetes mellitus with hyperglycemia SNOMED: 748542512995974, 70456676 Qualifiers: Qualified Codes: E11.65 - Type 2 diabetes mellitus with hyperglycemia Status: progressing Assessment/Plan: increase Levemir to 10 units bid add Starlix 60 mg ac tid continue Januvia 50 mg daily continue Novolog sliding scale ac / hs Subjective Allergies: Coded Allergies: No Known Allergies (Unverified , 09/24/12) All Systems: reviewed and negative except above Subjective events noted glucose values on higher side Item Value Date Time Bedside Blood Glucose 205 mg/dl H 05/25/19 0625 Bedside Blood Glucose 264 mg/dl H 05/24/19 2126 Bedside Blood Glucose 214 mg/dl H 05/24/19 1715 Bedside Blood Glucose 210 mg/dl H 05/24/19 1137 Bedside Blood Glucose 131 mg/dl H 05/24/19 0900 Bedside Blood Glucose 131 mg/dl H 05/24/19 0640 Objective Last 24 Hour Vital Signs Date Time Temp Pulse Resp B/P (MAP) Pulse Ox O2 Delivery O2 Flow Rate FiO2 05/25/19 08:00 98.6 86 19 141/72 (95) 97 05/25/19 04:00 86 05/25/19 04:00 Room Air 05/25/19 04:00 98.2 86 20 152/78 (102) 94 05/25/19 00:00 98.2 89 20 144/83 (103) 95 05/25/19 00:00 Room Air 05/25/19 00:00 89 05/24/19 21:28 87 159/89 05/24/19 21:00 Room Air 05/24/19 20:00 75 05/24/19 20:00 98.2 87 20 159/89 (112) 97 05/24/19 16:01 85 05/24/19 15:54 99.1 85 20 129/61 (83) 97 05/24/19 15:32 93 157/82 05/24/19 12:00 99.0 93 20 157/82 (107) 97 05/24/19 11:52 87 05/24/19 09:00 Room Air 05/24/19 08:48 97 156/89 Intake and Output 05/24/19 05/25/19 19:00 07:00 Intake Total 1675 ml 435 ml Output Total 850 ml 1700 ml Balance 825 ml -1265 ml Intake Oral 720 ml IV Total 955 ml 435 ml Output Urine Total 850 ml 1700 ml Height (Feet): 5 Height (Inches): 5.00 Weight (Pounds): 179 General Appearance: no apparent distress Neck: normal alignment Cardiovascular: normal rate Respiratory/Chest: lungs clear Abdomen: normal bowel sounds Pelvis: normal external exam Objective Current Medications Medications (Trade) Dose Ordered Sig/Brendon Route PRN Reason Start Time Stop Time Status Last Admin Dose Admin Allopurinol (allopurinoL) 300 mg DAILY ORAL 05/25/19 09:00 06/24/19 08:59 Amlodipine Besylate (Norvasc) 10 mg DAILY ORAL 05/22/19 10:00 06/21/19 09:59 05/24/19 08:48 Aspirin (ASA) 81 mg DAILY ORAL 05/22/19 10:15 07/06/19 10:14 05/24/19 08:48 Atorvastatin Calcium (Lipitor) 20 mg BEDTIME ORAL 05/22/19 21:00 08/20/19 20:59 05/24/19 21:27 Ceftriaxone Sodium 1 gm/ Dextrose 55 ml @ 110 mls/hr Q24H IVPB 05/22/19 11:00 05/29/19 10:59 05/24/19 11:28 Dextrose (Dextrose 50%) 25 ml Q30M PRN IV Hypoglycemia 05/23/19 07:00 08/21/19 06:59 Dextrose (Dextrose 50%) 50 ml Q30M PRN IV Hypoglycemia 05/23/19 07:00 08/21/19 06:59 Docusate Sodium (Colace) 100 mg THREE TIMES A DAY ORAL 05/22/19 13:00 06/21/19 12:59 05/24/19 17:14 Hydralazine HCl (Apresoline) 25 mg Q4H PRN ORAL bp over 160 syst 05/22/19 09:59 08/20/19 09:58 Insulin Aspart (NovoLOG) BEFORE MEALS AND HS SUBQ 05/22/19 21:00 08/20/19 20:59 05/25/19 05:49 Insulin Detemir (Levemir) 6 units BID SUBQ 05/24/19 09:00 08/20/19 19:59 05/24/19 17:15 Iron Sucrose 100 mg/Sodium Chloride 60 ml @ 240 mls/hr BEDTIME IV 05/24/19 21:00 05/28/19 21:14 05/24/19 21:28 Lorazepam (Ativan) 1 mg Q4H PRN ORAL For Anxiety 05/22/19 18:30 05/29/19 18:29 05/22/19 23:21 Metoprolol Tartrate (Lopressor) 12.5 mg Q12HR ORAL 05/24/19 21:00 08/22/19 20:59 05/24/19 21:28 Pantoprazole (Protonix) 40 mg EVERY 12 HOURS ORAL 05/22/19 10:00 06/21/19 09:59 05/24/19 21:27 Sitagliptin Phosphate (Januvia) 50 mg ACBREAKFAST ORAL 05/22/19 10:01 06/21/19 10:00 05/25/19 05:48 Sodium Chloride 1,000 ml @ 75 mls/hr [id number] IV 05/23/19 13:30 06/22/19 13:29 05/25/19 02:52 Henri Hernandes MD May 25, 2019 08:32
[2019-05-25] MEDS: Aspirin Baby 81mg ORAL SCH (09:00)
--- NOTE | 2019-05-25 09:15 | NUR ---
NURSE NOTES: Called Billie, daughter to notify of fall
--- NOTE | 2019-05-25 09:18 | NUR ---
ST NOTES: S: ALERT AND ABLE TO EXPRESS NEEDS IN TUNISIAN. STILL DISORIENTED TO TIME BUT ABLE TO READ ORIENTATION SIGN POSTED. PER OPERATIONS WELDER, LORY, AND RN, SHAAN, PATIENT DISLIKED HIS MECH SOFT GROUND DIET AND REFUSED TO EAT MEAL THIS MORNING. O/A UPGRADE DIET - GIVEN THAT THE PATIENT HAS WRIST-RESTRAINTS NOW THAT HE FELL AND THAT HE DISLIKES CURRENT DIET, WILL UPGRADE TO MECH SOFT FINELY CHOPPED AND CONTINUE WITH THIN LIQUIDS USING POSTED ASPIRATION AND REFLUX PRECAUTIONS. ALSO LEFT NURSING OPTION TO UPGRADE TO MECH SOFT CHOPPED OR SOFT CHEW (ALLOWS FOR MENU AND FOOD PREFERENCES) IF INDICATED. UNABLE TO COMPLETE MODIFIED BARIUM SWALLOW STUDY (MBSS) THIS MORNING DUE TO SCHEDULE CONFLICTS. PLAN: CONTINUE WITH PLAN OF CARE IN SWALLOWING EVALUATION REPORT AND UPGRADED DIET USING POSTED PRECAUTIONS.
--- NOTE | 2019-05-25 09:41 | NUR ---
CASE MANAGEMENT: REVIEW 05/25/19 SI:CHF . ACUTE ENCEPHALOPATHY . UTI . RENAL FAILURE . DM 97.9 74 18 140/65 97% ON RA IS:IV ROCEPHIN Q24HR IV VENOFER X5BAGS IV NS@75ML/HR PROTONIX PO BID LOPRESSOR PO BID NORVASC PO QD LIPITOR PO QHS ASA PO QD JANUVIA PO QAC ATIVAN Q4/PRN \: 2E TELE UNIT DCP: FAMILY REQUESTING HOME VS SNF PLAN: DECREASE IV SPOKE TO DAUGHTERS ABOUT HOME CARE ORIENT PATIENT TO ROOM FALL PRECAUTION
[2019-05-25] MEDS: OLANZapine 2.5mg tab ORAL SCH ×2 (09:56→18:03)
[2019-05-25] MEDS: Metoprolol Tartrate 12.5mg TAB ORAL SCH ×2 (09:56→21:03)
[2019-05-25] MEDS: Docusate 100mg cap ORAL SCH ×3 (09:56→18:04)
[2019-05-25] MEDS: Levemir Flexpen SUBQ SCH ×2 (09:58→18:18)
--- NOTE | 2019-05-25 10:46 | NUR ---
CASE MANAGEMENT: NOTE SPOKE TO DAUGHTERS PAYAM AND JARED ABOUT FATHERS CARE T: [phone]/T:[phone] DAUGHTERS STATE PATIENT IS NOT COMPLAINT WITH MEDS PATIENT SHOWING SIGNS OF CONFUSION FOR A WEEK HX OF PATIENT: PASSED; PATIENT HAD BYPASS OPEN HEART SURGERY AND HAD TO RETIRE; PATIENT DEPRESSED SINCE. ALL AGREEABLE TO SNF WHEN STABLE
[2019-05-25] MEDS: cefTRIAXone 1 GM in D5W 55 ML IVPB SCH (11:03)
[2019-05-25] MEDS: Nateglinide 60mg tab ORAL SCH ×2 (11:14→16:23)
[2019-05-25] MEDS: LORazepam 1mg tab ORAL PRN ×2 (12:27→16:23)
--- NOTE | 2019-05-25 13:14 | Infectious Diseases Prog Note ---
Assessment/Plan Assessment/Plan IMPRESSION: 1. Leukocytosis resolved 2. Renal failure, likely acute on chronic. 3. Diabetes mellitus with hyperglycemia. 4. Hypertension. 5. Obesity. 6. Hyponatremia. 7. Sever aortic stenosis 8. RBBB 9. 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 inconclusive right foot MRI Wound culture from left heel Add PO doxycycline Subjective ROS Limited/Unobtainable: Yes Constitutional: Denies: fever Neurologic: Reports: confusion, other - was found on the floor this morning Musculoskeletal: Denies: pain Allergies: Coded Allergies: No Known Allergies (Unverified , 09/24/12) Objective Vital Signs Last 24 Hour Vital Signs Date Time Temp Pulse Resp B/P (MAP) Pulse Ox O2 Delivery O2 Flow Rate FiO2 05/25/19 12:00 98.6 82 19 137/76 (96) 98 05/25/19 12:00 80 05/25/19 11:00 97.1 78 16 133/77 (95) 98 05/25/19 10:00 97.9 70 18 137/65 (89) 96 05/25/19 09:57 74 140/65 05/25/19 09:56 74 140/65 05/25/19 09:30 97.9 74 18 140/65 (90) 97 05/25/19 09:00 97.9 70 20 137/71 (93) 95 05/25/19 08:45 97.5 95 05/25/19 08:30 98.6 77 18 140/75 (96) 95 05/25/19 08:30 Room Air 05/25/19 08:00 98.6 86 19 141/72 (95) 97 05/25/19 08:00 78 05/25/19 04:00 86 05/25/19 04:00 Room Air 05/25/19 04:00 98.2 86 20 152/78 (102) 94 05/25/19 00:00 98.2 89 20 144/83 (103) 95 05/25/19 00:00 Room Air 05/25/19 00:00 89 05/24/19 21:28 87 159/89 05/24/19 21:00 Room Air 05/24/19 20:00 75 05/24/19 20:00 98.2 87 20 159/89 (112) 97 05/24/19 16:01 85 05/24/19 15:54 99.1 85 20 129/61 (83) 97 05/24/19 15:32 93 157/82 Height (Feet): 5 Height (Inches): 5.00 Weight (Pounds): 179 General Appearance: no acute distress HEENT: mucous membranes moist Respiratory/Chest: lungs clear Cardiovascular: normal rate Abdomen: soft, non tender Extremities: no edema Skin: ulcers Neurologic/Psychiatric: alert, responsive Current Medications Medications (Trade) Dose Ordered Sig/Brendon Route PRN Reason Start Time Stop Time Status Last Admin Dose Admin Allopurinol (allopurinoL) 300 mg DAILY ORAL 05/25/19 09:00 06/24/19 08:59 05/25/19 09:56 Amlodipine Besylate (Norvasc) 10 mg DAILY ORAL 05/22/19 10:00 06/21/19 09:59 05/25/19 09:57 Aspirin (ASA) 81 mg DAILY ORAL 05/22/19 10:15 07/06/19 10:14 05/24/19 08:48 Atorvastatin Calcium (Lipitor) 20 mg BEDTIME ORAL 05/22/19 21:00 08/20/19 20:59 05/24/19 21:27 Ceftriaxone Sodium 1 gm/ Dextrose 55 ml @ 110 mls/hr Q24H IVPB 05/22/19 11:00 05/29/19 10:59 05/25/19 11:03 Dextrose (Dextrose 50%) 25 ml Q30M PRN IV Hypoglycemia 05/23/19 07:00 08/21/19 06:59 Dextrose (Dextrose 50%) 50 ml Q30M PRN IV Hypoglycemia 05/23/19 07:00 08/21/19 06:59 Docusate Sodium (Colace) 100 mg THREE TIMES A DAY ORAL 05/22/19 13:00 06/21/19 12:59 05/25/19 12:27 Hydralazine HCl (Apresoline) 25 mg Q4H PRN ORAL bp over 160 syst 05/22/19 09:59 08/20/19 09:58 Insulin Aspart (NovoLOG) BEFORE MEALS AND HS SUBQ 05/22/19 21:00 08/20/19 20:59 05/25/19 12:33 Insulin Detemir (Levemir) 10 units BID SUBQ 05/25/19 09:00 08/20/19 19:59 05/25/19 09:58 Iron Sucrose 100 mg/Sodium Chloride 60 ml @ 240 mls/hr BEDTIME IV 05/24/19 21:00 05/28/19 21:14 05/24/19 21:28 Lorazepam (Ativan) 1 mg Q4H PRN ORAL For Anxiety 05/22/19 18:30 05/29/19 18:29 05/25/19 12:27 Metoprolol Tartrate (Lopressor) 12.5 mg Q12HR ORAL 05/24/19 21:00 08/22/19 20:59 05/25/19 09:56 Nateglinide (Starlix) 60 mg TIAC ORAL 05/25/19 11:30 06/24/19 11:29 05/25/19 11:14 Olanzapine (ZyPREXA) 2.5 mg BID ORAL 05/25/19 09:30 07/09/19 09:29 05/25/19 09:56 Pantoprazole (Protonix) 40 mg EVERY 12 HOURS ORAL 05/22/19 10:00 06/21/19 09:59 05/25/19 09:56 Sitagliptin Phosphate (Januvia) 50 mg ACBREAKFAST ORAL 05/22/19 10:01 06/21/19 10:00 05/25/19 05:48 Sodium Chloride 1,000 ml @ 75 mls/hr [id number] IV 05/23/19 13:30 06/22/19 13:29 05/25/19 02:52 Kavon Beasley MD May 25, 2019 13:14
[2019-05-25] MEDS: Doxycycline Monohydrate 100mg ORAL SCH ×2 (13:31→21:04)
--- NOTE | 2019-05-25 13:46 | Cardiac Electrophysiology PN ---
Assessment/Plan Assessment/Plan 1. Elevated BNP of more than 14,000, possible congestive heart failure. Echocardiogram EF of 55%. Ruled out for myocardial infarction. BNP down to 7K 2. Severe aortic stenosis with aortic valve area of 0.5 3. 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 On Lipitor, Lopressor, Norvasc and aspirin. 4. Hypertension, on Norvasc 10 mg daily, Lopressor 25 bid and p.r.n. hydralazine. 5. Uncontrolled diabetes, on insulin. 6. Leukocytosis, improving. 7. Acute on chronic renal failure. 8. Obesity. 9. Hyponatremia. 10. Osteo of Right posterior heel per MRI pending reults On iv ABX DW RN Subjective Subjective Had Right foot MRI yesterday that showed osteo . In SR. No CP or SOB. Had a fall. Objective Last 24 Hour Vital Signs Date Time Temp Pulse Resp B/P (MAP) Pulse Ox O2 Delivery O2 Flow Rate FiO2 05/25/19 12:00 98.6 82 19 137/76 (96) 98 05/25/19 12:00 80 05/25/19 11:00 97.1 78 16 133/77 (95) 98 05/25/19 10:00 97.9 70 18 137/65 (89) 96 05/25/19 09:57 74 140/65 05/25/19 09:56 74 140/65 05/25/19 09:30 97.9 74 18 140/65 (90) 97 05/25/19 09:00 97.9 70 20 137/71 (93) 95 05/25/19 08:45 97.5 95 05/25/19 08:30 98.6 77 18 140/75 (96) 95 05/25/19 08:30 Room Air 05/25/19 08:00 98.6 86 19 141/72 (95) 97 05/25/19 08:00 78 05/25/19 04:00 86 05/25/19 04:00 Room Air 05/25/19 04:00 98.2 86 20 152/78 (102) 94 05/25/19 00:00 98.2 89 20 144/83 (103) 95 05/25/19 00:00 Room Air 05/25/19 00:00 89 05/24/19 21:28 87 159/89 05/24/19 21:00 Room Air 05/24/19 20:00 75 05/24/19 20:00 98.2 87 20 159/89 (112) 97 05/24/19 16:01 85 05/24/19 15:54 99.1 85 20 129/61 (83) 97 05/24/19 15:32 93 157/82 Intake and Output 05/24/19 05/25/19 19:00 07:00 Intake Total 1675 ml 435 ml Output Total 850 ml 1700 ml Balance 825 ml -1265 ml Intake Oral 720 ml IV Total 955 ml 435 ml Output Urine Total 850 ml 1700 ml Objective HEAD AND NECK: No JVD. LUNGS: Coarse rhonchi. CARDIOVASCULAR: Regular S1 and S2 with no gallop or murmur. Sternotomy scar is healed. ABDOMEN: Soft. EXTREMITIES: Ulcer in the heel as well as ulcer in the right lateral thigh. Shashi Tcuker MD May 25, 2019 13:45
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
--- NOTE | 2019-05-25 19:20 | NUR ---
HAND-OFF: Report given to Raj HINOJOSA.
--- NOTE | 2019-05-25 19:21 | NUR ---
NURSE NOTES: Received pt from MICAELA Marquez. Pt is awake and resting in bed in no acute distress with HOB elevated. Pt iv site intact and patent. Castillo catheter intact and patent. Bed locked in lowest position, bed alarm on, call light within reach. Will continue with plan of care.
--- NOTE | 2019-05-25 20:32 | General Progress Note ---
Assessment/Plan Problem List: (1) ARF (acute renal failure) ICD Codes: N17.9 - Acute kidney failure, unspecified SNOMED: 54651476, 385971422 Qualifiers: Qualified Codes: N17.9 - Acute kidney failure, unspecified (2) Obesity (BMI 30-39.9) ICD Codes: E66.9 - Obesity, unspecified SNOMED: 502951166, 362514559 (3) Acute encephalopathy ICD Codes: G93.40 - Encephalopathy, unspecified SNOMED: 97444429, 014921949 (4) Hyperglycemia due to type 2 diabetes mellitus ICD Codes: E11.65 - Type 2 diabetes mellitus with hyperglycemia SNOMED: 365188016026699, 65702033 Qualifiers: Qualified Codes: E11.65 - Type 2 diabetes mellitus with hyperglycemia (5) Hyponatremia ICD Codes: E87.1 - Hypo-osmolality and hyponatremia SNOMED: 94105999, 056657453 (6) Acute exacerbation of CHF (congestive heart failure) ICD Codes: I50.9 - Heart failure, unspecified SNOMED: 341330628, 93241203228901 Qualifiers: Qualified Codes: I50.9 - Heart failure, unspecified Status: progressing Assessment/Plan: more alert obesity arf is improving no fever niddm sugar is improving confused azotemia Subjective Allergies: Coded Allergies: No Known Allergies (Unverified , 09/24/12) Objective Last 24 Hour Vital Signs Date Time Temp Pulse Resp B/P (MAP) Pulse Ox O2 Delivery O2 Flow Rate FiO2 05/25/19 16:00 80 05/25/19 15:41 97.3 66 21 123/61 (81) 97 05/25/19 14:00 98.4 74 20 130/61 (84) 94 05/25/19 13:00 98.1 82 19 127/82 (97) 96 05/25/19 12:00 98.6 82 19 137/76 (96) 98 05/25/19 12:00 80 05/25/19 11:00 97.1 78 16 133/77 (95) 98 05/25/19 10:00 97.9 70 18 137/65 (89) 96 05/25/19 09:57 74 140/65 05/25/19 09:56 74 140/65 05/25/19 09:30 97.9 74 18 140/65 (90) 97 05/25/19 09:00 97.9 70 20 137/71 (93) 95 05/25/19 08:45 97.5 95 05/25/19 08:30 98.6 77 18 140/75 (96) 95 05/25/19 08:30 Room Air 05/25/19 08:00 98.6 86 19 141/72 (95) 97 05/25/19 08:00 78 05/25/19 04:00 86 05/25/19 04:00 Room Air 05/25/19 04:00 98.2 86 20 152/78 (102) 94 05/25/19 00:00 98.2 89 20 144/83 (103) 95 05/25/19 00:00 Room Air 05/25/19 00:00 89 05/24/19 21:28 87 159/89 05/24/19 21:00 Room Air Intake and Output 05/24/19 05/25/19 18:59 06:59 Intake Total 1600 ml 510 ml Output Total 850 ml 1700 ml Balance 750 ml -1190 ml Intake Oral 720 ml IV Total 880 ml 510 ml Output Urine Total 850 ml 1700 ml Height (Feet): 5 Height (Inches): 5.00 Weight (Pounds): 179 Rosalba Estrada MD May 25, 2019 20:32
--- NOTE | 2019-05-25 21:00 | Progress Note ---
DATE: 05/25/2019 SUBJECTIVE: The patient is more confused than yesterday. Responding to internal stimuli. The patient is awaiting placement. The patient is unable to be engaged and answer the questions appropriately. The patient is [place] speaking, responding to internal stimuli, and is delusional and hallucinating. The patient was placed back on Zyprexa 2.5 b.i.d. MENTAL STATUS EXAMINATION: The patient is alert, disoriented. Mood is neutral. Affect is flat. Thought process is disorganized. Thought content, no suicidal or homicidal ideation. Positive for delusions and auditory hallucinations. Memory is impaired. Insight and judgment is impaired. ASSESSMENT: Psychotic disorder. PLAN: 1. Zyprexa 2.5 mg b.i.d. 2. Continue current psychotropic medications. Vamshi Amador M.D. DR: NNEKA JOB#: [id number] CC:
[2019-05-25] MEDS: Atorvastatin 20mg tab ORAL SCH (21:03)
[2019-05-25] MEDS: Iron Sucrose 100 MG in NS 55 ML IV SCH (21:04)
--- NOTE | 2019-05-25 21:45 | NUR ---
NURSE NOTES: Daughter (Billie) of pt called and left number best to be reached at if needed. [phone]
--- NOTE | 2019-05-25 23:00 | Progress Note ---
DATE: 05/25/2019 SUBJECTIVE: The patient is still confused. Cannot get a reliable history from the patient. The patient basically has a history of coronary bypass of severe aortic stenosis. The patient also has borderline congestive heart failure. Also has elevated blood pressure still. Has also uncontrolled diabetes as well, as well as hyponatremia and obesity. We are trying to rule out also osteomyelitis of the right posterior heel. LABORATORY DATA: Potassium is 3.6, glucose improving at 145, creatinine of 3.9, BUN of 41. ASSESSMENT AND PLAN: Azotemia is worsening. Blood sugar is improving. The patient is still confused. He is going to need prison placement. The patient is unsafe to go home. We will monitor the patient at this point. Antibiotics per Dr. Kavon Beasley. Rosalba Estrada M.D. DR: NOBLE JOB#: [id number] CC:
[2019-05-26] VITALS: BP 135/77
[2019-05-26 04:00] VITALS: BP 145/79
[2019-05-26] MEDS: NovoLOG Insulin Flexpen SUBQ SCH ×4 (06:30→21:00)
[2019-05-26] MEDS: Nateglinide 60mg tab ORAL SCH ×3 (06:34→17:33)
[2019-05-26] MEDS: sitaGLIPtin 50mg tab ORAL SCH (06:34)
[2019-05-26 06:44] LABS: BASOPHILS % (AUTO) 0.8 % (0.0-2.0); EOSINOPHILS % (AUTO) 0.6 % (0.0-3.0); HEMATOCRIT 27.5 % (42.0-52.0); HEMOGLOBIN 9.6 G/DL (14.2-18.0); LYMPHOCYTES % (AUTO) 6.1 % (20.0-45.0); MEAN CORPUSCULAR VOLUME 84 FL (80-99); MONOCYTES % (AUTO) 10.9 % (1.0-10.0); NEUTROPHILS % (AUTO) 81.7 % (45.0-75.0); PLATELET COUNT 375 K/UL (150-450); RED BLOOD COUNT 3.28 M/UL (4.70-6.10); RED CELL DISTRIBUTION WIDTH 10.9 % (11.6-14.8); WHITE BLOOD COUNT 10.9 K/UL (4.8-10.8)
--- NOTE | 2019-05-26 06:56 | General Progress Note ---
Assessment/Plan Problem List: (1) Hyponatremia ICD Codes: E87.1 - Hypo-osmolality and hyponatremia SNOMED: 35938361, 963467941 (2) ARF (acute renal failure) ICD Codes: N17.9 - Acute kidney failure, unspecified SNOMED: 08232403, 909222071 Qualifiers: Qualified Codes: N17.9 - Acute kidney failure, unspecified (3) Acute exacerbation of CHF (congestive heart failure) ICD Codes: I50.9 - Heart failure, unspecified SNOMED: 725011388, 94223927333548 Qualifiers: Qualified Codes: I50.9 - Heart failure, unspecified (4) Acute encephalopathy ICD Codes: G93.40 - Encephalopathy, unspecified SNOMED: 08424117, 077015696 (5) Hyperglycemia due to type 2 diabetes mellitus ICD Codes: E11.65 - Type 2 diabetes mellitus with hyperglycemia SNOMED: 142114582559635, 51949715 Qualifiers: Qualified Codes: E11.65 - Type 2 diabetes mellitus with hyperglycemia Status: progressing Assessment/Plan: continue Levemir 10 units bid continue Starlix 60 mg ac tid continue Januvia 50 mg daily continue Novolog sliding scale ac / hs Subjective Allergies: Coded Allergies: No Known Allergies (Unverified , 09/24/12) All Systems: reviewed and negative except above Subjective events noted glucose values improving Item Value Date Time Bedside Blood Glucose 92 mg/dl 05/26/19 0634 Bedside Blood Glucose 167 mg/dl H 05/25/19 2100 Bedside Blood Glucose 127 mg/dl H 05/25/19 1818 Bedside Blood Glucose 243 mg/dl H 05/25/19 1233 Bedside Blood Glucose 253 mg/dl H 05/25/19 0958 Bedside Blood Glucose 205 mg/dl H 05/25/19 0625 Objective Last 24 Hour Vital Signs Date Time Temp Pulse Resp B/P (MAP) Pulse Ox O2 Delivery O2 Flow Rate FiO2 05/26/19 04:00 80 05/26/19 04:00 97.4 80 18 145/79 (101) 95 05/26/19 00:00 97.7 84 18 135/77 (96) 96 05/25/19 21:03 87 148/80 05/25/19 21:00 Room Air 05/25/19 20:00 88 05/25/19 20:00 97.4 88 18 148/80 (102) 94 05/25/19 16:00 80 05/25/19 15:41 97.3 66 21 123/61 (81) 97 05/25/19 14:00 98.4 74 20 130/61 (84) 94 05/25/19 13:00 98.1 82 19 127/82 (97) 96 05/25/19 12:00 98.6 82 19 137/76 (96) 98 05/25/19 12:00 80 05/25/19 11:00 97.1 78 16 133/77 (95) 98 05/25/19 10:00 97.9 70 18 137/65 (89) 96 05/25/19 09:57 74 140/65 05/25/19 09:56 74 140/65 05/25/19 09:30 97.9 74 18 140/65 (90) 97 05/25/19 09:00 97.9 70 20 137/71 (93) 95 05/25/19 08:45 97.5 95 05/25/19 08:30 98.6 77 18 140/75 (96) 95 05/25/19 08:30 Room Air 05/25/19 08:00 98.6 86 19 141/72 (95) 97 05/25/19 08:00 78 Intake and Output 05/25/19 05/26/19 19:00 07:00 Intake Total 480 ml Output Total 1300 ml Balance 480 ml -1300 ml Intake Oral 480 ml Output Urine Total 1300 ml Laboratory Tests 05/26/19 06:18: White Blood Count [Pending], Red Blood Count [Pending], Hemoglobin [Pending], Hematocrit [Pending], Mean Corpuscular Volume [Pending], Mean Corpuscular Hemoglobin [Pending], Mean Corpuscular Hemoglobin Concent [Pending], Red Cell Distribution Width [Pending], Platelet Count [Pending], Mean Platelet Volume [ Pending], Neutrophils (%) (Auto) [Pending], Lymphocytes (%) (Auto) [Pending], Monocytes (%) (Auto) [Pending], Eosinophils (%) (Auto) [Pending], Basophils (%) (Auto) [Pending], Sodium Level [Pending], Potassium Level [Pending], Chloride Level [Pending], Carbon Dioxide Level [Pending], Blood Urea Nitrogen [Pending], Creatinine [Pending], Estimat Glomerular Filtration Rate [Pending], Glucose Level [Pending], Uric Acid [Pending], Calcium Level [Pending], Phosphorus Level [Pending], Magnesium Level [Pending], Total Bilirubin [Pending], Aspartate Amino Transf (AST/SGOT) [Pending], Alanine Aminotransferase (ALT/SGPT) [Pending] , Alkaline Phosphatase [Pending], C-Reactive Protein, Quantitative [Pending], Pro-B-Type Natriuretic Peptide [Pending], Total Protein [Pending], Albumin [ Pending], Globulin [Pending] Height (Feet): 5 Height (Inches): 5.00 Weight (Pounds): 179 General Appearance: no apparent distress Neck: normal alignment Cardiovascular: normal rate Respiratory/Chest: lungs clear Abdomen: normal bowel sounds Objective Current Medications Medications (Trade) Dose Ordered Sig/Brendon Route PRN Reason Start Time Stop Time Status Last Admin Dose Admin Allopurinol (allopurinoL) 300 mg DAILY ORAL 05/25/19 09:00 06/24/19 08:59 05/25/19 09:56 Amlodipine Besylate (Norvasc) 10 mg DAILY ORAL 05/22/19 10:00 06/21/19 09:59 05/25/19 09:57 Aspirin (ASA) 81 mg DAILY ORAL 05/22/19 10:15 07/06/19 10:14 05/24/19 08:48 Atorvastatin Calcium (Lipitor) 20 mg BEDTIME ORAL 05/22/19 21:00 08/20/19 20:59 05/25/19 21:03 Ceftriaxone Sodium 1 gm/ Dextrose 55 ml @ 110 mls/hr Q24H IVPB 05/22/19 11:00 05/29/19 10:59 05/25/19 11:03 Dextrose (Dextrose 50%) 25 ml Q30M PRN IV Hypoglycemia 05/23/19 07:00 08/21/19 06:59 Dextrose (Dextrose 50%) 50 ml Q30M PRN IV Hypoglycemia 05/23/19 07:00 08/21/19 06:59 Docusate Sodium (Colace) 100 mg THREE TIMES A DAY ORAL 05/22/19 13:00 06/21/19 12:59 05/25/19 18:04 Doxycycline Monohydrate (Doxycycline Monohydrate) 100 mg EVERY 12 HOURS ORAL 05/25/19 13:15 06/01/19 13:14 05/25/19 21:04 Hydralazine HCl (Apresoline) 25 mg Q4H PRN ORAL bp over 160 syst 05/22/19 09:59 08/20/19 09:58 Insulin Aspart (NovoLOG) BEFORE MEALS AND HS SUBQ 05/22/19 21:00 08/20/19 20:59 05/25/19 21:00 Insulin Detemir (Levemir) 10 units BID SUBQ 05/25/19 09:00 08/20/19 19:59 05/25/19 18:18 Iron Sucrose 100 mg/Sodium Chloride 60 ml @ 240 mls/hr BEDTIME IV 05/24/19 21:00 05/28/19 21:14 05/25/19 21:04 Lorazepam (Ativan) 1 mg Q4H PRN ORAL For Anxiety 05/22/19 18:30 05/29/19 18:29 05/25/19 16:23 Metoprolol Tartrate (Lopressor) 12.5 mg Q12HR ORAL 05/24/19 21:00 08/22/19 20:59 05/25/19 21:03 Nateglinide (Starlix) 60 mg TIAC ORAL 05/25/19 11:30 06/24/19 11:29 05/26/19 06:34 Olanzapine (ZyPREXA) 2.5 mg BID ORAL 05/25/19 09:30 07/09/19 09:29 05/25/19 18:03 Pantoprazole (Protonix) 40 mg EVERY 12 HOURS ORAL 05/22/19 10:00 06/21/19 09:59 05/25/19 21:04 Sitagliptin Phosphate (Januvia) 50 mg ACBREAKFAST ORAL 05/22/19 10:01 06/21/19 10:00 05/26/19 06:34 Sodium Chloride 1,000 ml @ 75 mls/hr [id number] IV 05/23/19 13:30 06/22/19 13:29 05/25/19 18:04 Henri Hernandes MD May 26, 2019 06:56
--- NOTE | 2019-05-26 07:10 | NUR ---
HAND-OFF: Report given to MICAELA Marquez.
[2019-05-26 07:15] LABS: ALANINE AMINOTRANSFERASE 10 U/L (12-78); ALBUMIN 2.4 G/DL (3.4-5.0); ALBUMIN/GLOBULIN RATIO 0.7 (1.0-2.7); ALKALINE PHOSPHATASE 70 U/L (46-116); ANION GAP 12 mmol/L (5-15); ASPARTATE AMINO TRANSFERASE 17 U/L (15-37); BILIRUBIN,TOTAL 0.2 MG/DL (0.2-1.0); BLOOD UREA NITROGEN 35 mg/dL (7-18); CALCIUM 8.5 MG/DL (8.5-10.1); CARBON DIOXIDE 23 MMOL/L (21-32); CHLORIDE 102 MMOL/L (98-107); CREATININE 3.5 MG/DL (0.55-1.30); PHOSPHORUS 4.7 MG/DL (2.5-4.9); POTASSIUM 3.2 MMOL/L (3.5-5.1); SODIUM 137 MMOL/L (136-145)
--- NOTE | 2019-05-26 07:48 | NUR ---
NURSE NOTES: recvd pt. Pt is resting in bed comfortably. No sign of distress or pain noted. IV site is c/d/i. Bed in lowest locked position, bed alarm is on. call light within reach, will continue with plan of care
[2019-05-26 08:00] VITALS: BP 140/80
[2019-05-26] MEDS: Levemir Flexpen SUBQ SCH ×2 (09:00→17:30)
[2019-05-26] MEDS: Doxycycline Monohydrate 100mg ORAL SCH ×2 (10:11→21:10)
[2019-05-26] MEDS: Docusate 100mg cap ORAL SCH ×3 (10:11→17:33)
[2019-05-26] MEDS: Aspirin Baby 81mg ORAL SCH (10:12)
[2019-05-26] MEDS: Metoprolol Tartrate 12.5mg TAB ORAL SCH ×2 (10:12→21:12)
[2019-05-26] MEDS: OLANZapine 2.5mg tab ORAL SCH ×2 (10:12→17:30)
--- NOTE | 2019-05-26 10:35 | Infectious Diseases Prog Note ---
Assessment/Plan Assessment/Plan IMPRESSION: 1. Leukocytosis resolved 2. Renal failure, likely acute on chronic. 3. Diabetes mellitus with hyperglycemia. 4. Hypertension. 5. Obesity. 6. Hyponatremia. 7. Sever aortic stenosis 8. RBBB 9. 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 RECOMMENDATION: Continue with ceftriaxone & PO doxycycline inconclusive right foot MRI Will f/u Wound culture [employer] Feeder input will be appreciated Subjective ROS Limited/Unobtainable: Yes Allergies: Coded Allergies: No Known Allergies (Unverified , 09/24/12) Objective Vital Signs Last 24 Hour Vital Signs Date Time Temp Pulse Resp B/P (MAP) Pulse Ox O2 Delivery O2 Flow Rate FiO2 05/26/19 10:12 72 140/80 05/26/19 10:12 72 140/80 05/26/19 09:00 Room Air 05/26/19 08:00 97.4 72 20 140/80 (100) 94 05/26/19 08:00 72 05/26/19 04:00 80 05/26/19 04:00 97.4 80 18 145/79 (101) 95 05/26/19 00:00 97.7 84 18 135/77 (96) 96 05/25/19 21:03 87 148/80 05/25/19 21:00 Room Air 05/25/19 20:00 88 05/25/19 20:00 97.4 88 18 148/80 (102) 94 05/25/19 16:00 80 05/25/19 15:41 97.3 66 21 123/61 (81) 97 05/25/19 14:00 98.4 74 20 130/61 (84) 94 05/25/19 13:00 98.1 82 19 127/82 (97) 96 05/25/19 12:00 98.6 82 19 137/76 (96) 98 05/25/19 12:00 80 05/25/19 11:00 97.1 78 16 133/77 (95) 98 Height (Feet): 5 Height (Inches): 5.00 Weight (Pounds): 179 General Appearance: no acute distress HEENT: mucous membranes moist Respiratory/Chest: lungs clear Cardiovascular: normal rate Abdomen: soft, non tender Extremities: no edema Skin: ulcers Neurologic/Psychiatric: disoriented, other - drowsy Microbiology Date/Time Source Procedure Growth Status 05/25/19 23:20 Foot Right Gram Stain - Final Resulted 05/25/19 23:20 Foot Right Wound Culture Pending Resulted Laboratory Tests Test 05/26/19 06:18 White Blood Count 10.9 K/UL (4.8-10.8) H Red Blood Count 3.28 M/UL (4.70-6.10) L Hemoglobin 9.6 G/DL (14.2-18.0) L Hematocrit 27.5 % (42.0-52.0) L Mean Corpuscular Volume 84 FL (80-99) Mean Corpuscular Hemoglobin 29.2 PG (27.0-31.0) Mean Corpuscular Hemoglobin Concent 34.9 G/DL (32.0-36.0) Red Cell Distribution Width 10.9 % (11.6-14.8) L Platelet Count 375 K/UL (150-450) Mean Platelet Volume 5.7 FL (6.5-10.1) L Neutrophils (%) (Auto) 81.7 % (45.0-75.0) H Lymphocytes (%) (Auto) 6.1 % (20.0-45.0) L Monocytes (%) (Auto) 10.9 % (1.0-10.0) H Eosinophils (%) (Auto) 0.6 % (0.0-3.0) Basophils (%) (Auto) 0.8 % (0.0-2.0) Sodium Level 137 MMOL/L (136-145) Potassium Level 3.2 MMOL/L (3.5-5.1) L Chloride Level 102 MMOL/L (98-107) Carbon Dioxide Level 23 MMOL/L (21-32) Anion Gap 12 mmol/L (5-15) Blood Urea Nitrogen 35 mg/dL (7-18) H Creatinine 3.5 MG/DL (0.55-1.30) H Estimat Glomerular Filtration Rate 17.5 mL/min (>60) Glucose Level 86 MG/DL (74-106) Uric Acid 7.7 MG/DL (2.6-7.2) H Calcium Level 8.5 MG/DL (8.5-10.1) Phosphorus Level 4.7 MG/DL (2.5-4.9) Magnesium Level 2.1 MG/DL (1.8-2.4) Total Bilirubin 0.2 MG/DL (0.2-1.0) Aspartate Amino Transf (AST/SGOT) 17 U/L (15-37) Alanine Aminotransferase (ALT/SGPT) 10 U/L (12-78) L Alkaline Phosphatase 70 U/L (46-116) C-Reactive Protein, Quantitative 5.8 mg/dL (0.00-0.90) H Pro-B-Type Natriuretic Peptide 55900 pg/mL (0-125) H Total Protein 6.0 G/DL (6.4-8.2) L Albumin 2.4 G/DL (3.4-5.0) L Globulin 3.6 g/dL Albumin/Globulin Ratio 0.7 (1.0-2.7) L Current Medications Medications (Trade) Dose Ordered Sig/Brendon Route PRN Reason Start Time Stop Time Status Last Admin Dose Admin Allopurinol (allopurinoL) 300 mg DAILY ORAL 05/25/19 09:00 06/24/19 08:59 05/26/19 10:12 Amlodipine Besylate (Norvasc) 10 mg DAILY ORAL 05/22/19 10:00 06/21/19 09:59 05/26/19 10:12 Aspirin (ASA) 81 mg DAILY ORAL 05/22/19 10:15 07/06/19 10:14 05/26/19 10:12 Atorvastatin Calcium (Lipitor) 20 mg BEDTIME ORAL 05/22/19 21:00 08/20/19 20:59 05/25/19 21:03 Ceftriaxone Sodium 1 gm/ Dextrose 55 ml @ 110 mls/hr Q24H IVPB 05/22/19 11:00 05/29/19 10:59 05/25/19 11:03 Dextrose (Dextrose 50%) 25 ml Q30M PRN IV Hypoglycemia 05/23/19 07:00 08/21/19 06:59 Dextrose (Dextrose 50%) 50 ml Q30M PRN IV Hypoglycemia 05/23/19 07:00 08/21/19 06:59 Docusate Sodium (Colace) 100 mg THREE TIMES A DAY ORAL 05/22/19 13:00 06/21/19 12:59 05/26/19 10:11 Doxycycline Monohydrate (Doxycycline Monohydrate) 100 mg EVERY 12 HOURS ORAL 05/25/19 13:15 06/01/19 13:14 05/26/19 10:11 Hydralazine HCl (Apresoline) 25 mg Q4H PRN ORAL bp over 160 syst 05/22/19 09:59 08/20/19 09:58 Insulin Aspart (NovoLOG) BEFORE MEALS AND HS SUBQ 05/22/19 21:00 08/20/19 20:59 05/25/19 21:00 Insulin Detemir (Levemir) 10 units BID SUBQ 05/25/19 09:00 08/20/19 19:59 05/25/19 18:18 Iron Sucrose 100 mg/Sodium Chloride 60 ml @ 240 mls/hr BEDTIME IV 05/24/19 21:00 05/28/19 21:14 05/25/19 21:04 Lorazepam (Ativan) 1 mg Q4H PRN ORAL For Anxiety 05/22/19 18:30 05/29/19 18:29 05/25/19 16:23 Metoprolol Tartrate (Lopressor) 12.5 mg Q12HR ORAL 05/24/19 21:00 08/22/19 20:59 05/26/19 10:12 Nateglinide (Starlix) 60 mg TIAC ORAL 05/25/19 11:30 06/24/19 11:29 05/26/19 06:34 Olanzapine (ZyPREXA) 2.5 mg BID ORAL 05/25/19 09:30 07/09/19 09:29 05/26/19 10:12 Pantoprazole (Protonix) 40 mg EVERY 12 HOURS ORAL 05/22/19 10:00 06/21/19 09:59 05/26/19 10:12 Sitagliptin Phosphate (Januvia) 50 mg ACBREAKFAST ORAL 05/22/19 10:01 06/21/19 10:00 05/26/19 06:34 Sodium Chloride 1,000 ml @ 75 mls/hr [id number] IV 05/23/19 13:30 06/22/19 13:29 05/26/19 08:10 Kavon Beasley MD May 26, 2019 10:35
[2019-05-26] MEDS: cefTRIAXone 1 GM in D5W 55 ML IVPB SCH (10:36)
--- NOTE | 2019-05-26 11:22 | NUR ---
DISCHARGE SWALLOW/SPEECH THERAPY SUMMARY: PATIENT SEEN FOR DYSPHAGIA, SEE SWALLOWING EVALUATION REPORT. GOALS MET FOR INTAKE 100% ON [facility] SOFT FINELY CHOPPED AND THIN LIQUIDS W/O OVERT ASPIRATION PER RNSHAAN. WILL HOLD OFF ON MODIFIED BARIUM SWALLOW STUDY FOR NOW SINCE LUNGS ARE CLEAR. PLAN: UPGRADE TO SOFT CHEW DIET AND CONTINUE WITH THIN LIQUIDS USING POSTED ASPIRATION PRECAUTIONS AND SUPERVISION OF MEALS. F/UP MBSS ONLY IF INDICATED AND OUTPATIENT.
--- NOTE | 2019-05-26 11:53 | Cardiac Electrophysiology PN ---
Assessment/Plan Assessment/Plan 1. Elevated BNP of more than 14,000, possible congestive heart failure. Echo EF of 55%. Ruled out for [place]. BNP down to 7K 2. Severe aortic stenosis with aortic valve area of 0.5 3. 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 On Lipitor, Lopressor, Norvasc and aspirin. 4. Hypertension, on Norvasc 10 mg daily, Lopressor 12.5 bid and p.r.n. hydralazine. 5. Uncontrolled diabetes, on insulin. 6. Leukocytosis, improving. 7. Acute on chronic renal failure. 8. Obesity. 9. Hyponatremia. 10. 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 Beasley Subjective Subjective Had Right foot MRI that showed osteo and is on iv Abx In SR. No CP or SOB. Still altered and awaiting Neuro to eval. Objective Last 24 Hour Vital Signs Date Time Temp Pulse Resp B/P (MAP) Pulse Ox O2 Delivery O2 Flow Rate FiO2 05/26/19 10:12 72 140/80 05/26/19 10:12 72 140/80 05/26/19 09:00 Room Air 05/26/19 08:00 97.4 72 20 140/80 (100) 94 05/26/19 08:00 72 05/26/19 04:00 80 05/26/19 04:00 97.4 80 18 145/79 (101) 95 05/26/19 00:00 97.7 84 18 135/77 (96) 96 05/25/19 21:03 87 148/80 05/25/19 21:00 Room Air 05/25/19 20:00 88 05/25/19 20:00 97.4 88 18 148/80 (102) 94 05/25/19 16:00 80 05/25/19 15:41 97.3 66 21 123/61 (81) 97 05/25/19 14:00 98.4 74 20 130/61 (84) 94 05/25/19 13:00 98.1 82 19 127/82 (97) 96 05/25/19 12:00 98.6 82 19 137/76 (96) 98 05/25/19 12:00 80 Intake and Output 05/25/19 05/26/19 19:02 07:02 Intake Total 480 ml Output Total 1300 ml Balance 480 ml -1300 ml Intake Oral 480 ml Output Urine Total 1300 ml Laboratory Tests Test 05/26/19 06:18 White Blood Count 10.9 K/UL (4.8-10.8) H Red Blood Count 3.28 M/UL (4.70-6.10) L Hemoglobin 9.6 G/DL (14.2-18.0) L Hematocrit 27.5 % (42.0-52.0) L Mean Corpuscular Volume 84 FL (80-99) Mean Corpuscular Hemoglobin 29.2 PG (27.0-31.0) Mean Corpuscular Hemoglobin Concent 34.9 G/DL (32.0-36.0) Red Cell Distribution Width 10.9 % (11.6-14.8) L Platelet Count 375 K/UL (150-450) Mean Platelet Volume 5.7 FL (6.5-10.1) L Neutrophils (%) (Auto) 81.7 % (45.0-75.0) H Lymphocytes (%) (Auto) 6.1 % (20.0-45.0) L Monocytes (%) (Auto) 10.9 % (1.0-10.0) H Eosinophils (%) (Auto) 0.6 % (0.0-3.0) Basophils (%) (Auto) 0.8 % (0.0-2.0) Sodium Level 137 MMOL/L (136-145) Potassium Level 3.2 MMOL/L (3.5-5.1) L Chloride Level 102 MMOL/L (98-107) Carbon Dioxide Level 23 MMOL/L (21-32) Anion Gap 12 mmol/L (5-15) Blood Urea Nitrogen 35 mg/dL (7-18) H Creatinine 3.5 MG/DL (0.55-1.30) H Estimat Glomerular Filtration Rate 17.5 mL/min (>60) Glucose Level 86 MG/DL (74-106) Uric Acid 7.7 MG/DL (2.6-7.2) H Calcium Level 8.5 MG/DL (8.5-10.1) Phosphorus Level 4.7 MG/DL (2.5-4.9) Magnesium Level 2.1 MG/DL (1.8-2.4) Total Bilirubin 0.2 MG/DL (0.2-1.0) Aspartate Amino Transf (AST/SGOT) 17 U/L (15-37) Alanine Aminotransferase (ALT/SGPT) 10 U/L (12-78) L Alkaline Phosphatase 70 U/L (46-116) C-Reactive Protein, Quantitative 5.8 mg/dL (0.00-0.90) H Pro-B-Type Natriuretic Peptide 52534 pg/mL (0-125) H Total Protein 6.0 G/DL (6.4-8.2) L Albumin 2.4 G/DL (3.4-5.0) L Globulin 3.6 g/dL Albumin/Globulin Ratio 0.7 (1.0-2.7) L Microbiology Date/Time Source Procedure Growth Status 05/25/19 23:20 Foot Right Gram Stain - Final Resulted 05/25/19 23:20 Foot Right Wound Culture Pending Resulted Objective HEAD AND NECK: No JVD. LUNGS: Coarse rhonchi. CARDIOVASCULAR: Regular S1 and S2 with no gallop or murmur. Sternotomy scar is healed. ABDOMEN: Soft. EXTREMITIES: Ulcer in the heel as well as ulcer in the right lateral thigh. Shashi Tucekr MD May 26, 2019 11:55
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
[2019-05-26 12:00] VITALS: BP 132/82
--- NOTE | 2019-05-26 12:07 | General Progress Note ---
Assessment/Plan Problem List: (1) ARF (acute renal failure) ICD Codes: N17.9 - Acute kidney failure, unspecified SNOMED: 35777752, 711778280 Qualifiers: Qualified Codes: N17.9 - Acute kidney failure, unspecified (2) Obesity (BMI 30-39.9) ICD Codes: E66.9 - Obesity, unspecified SNOMED: 502897908, 720590829 (3) Acute encephalopathy ICD Codes: G93.40 - Encephalopathy, unspecified SNOMED: 12305714, 733214181 (4) Hyperglycemia due to type 2 diabetes mellitus ICD Codes: E11.65 - Type 2 diabetes mellitus with hyperglycemia SNOMED: 776833787560001, 24948181 Qualifiers: Qualified Codes: E11.65 - Type 2 diabetes mellitus with hyperglycemia (5) Hyponatremia ICD Codes: E87.1 - Hypo-osmolality and hyponatremia SNOMED: 60027983, 005442384 (6) Acute exacerbation of CHF (congestive heart failure) ICD Codes: I50.9 - Heart failure, unspecified SNOMED: 016355683, 33202403010182 Qualifiers: Qualified Codes: I50.9 - Heart failure, unspecified Status: progressing Assessment/Plan: low k arf on top of cri arf is improving no fever niddm sepsis needs abx weak and also needs pt Subjective ROS Limited/Unobtainable: Yes Allergies: Coded Allergies: No Known Allergies (Unverified , 09/24/12) Objective Last 24 Hour Vital Signs Date Time Temp Pulse Resp B/P (MAP) Pulse Ox O2 Delivery O2 Flow Rate FiO2 05/26/19 10:12 72 140/80 05/26/19 10:12 72 140/80 05/26/19 09:00 Room Air 05/26/19 08:00 97.4 72 20 140/80 (100) 94 05/26/19 08:00 72 05/26/19 04:00 80 05/26/19 04:00 97.4 80 18 145/79 (101) 95 05/26/19 00:00 97.7 84 18 135/77 (96) 96 05/25/19 21:03 87 148/80 05/25/19 21:00 Room Air 05/25/19 20:00 88 05/25/19 20:00 97.4 88 18 148/80 (102) 94 05/25/19 16:00 80 05/25/19 15:41 97.3 66 21 123/61 (81) 97 05/25/19 14:00 98.4 74 20 130/61 (84) 94 05/25/19 13:00 98.1 82 19 127/82 (97) 96 05/25/19 12:00 98.6 82 19 137/76 (96) 98 05/25/19 12:00 80 Intake and Output 05/25/19 05/26/19 19:00 07:00 Intake Total 480 ml Output Total 1300 ml Balance 480 ml -1300 ml Intake Oral 480 ml Output Urine Total 1300 ml Laboratory Tests 05/26/19 06:18: White Blood Count 10.9H, Red Blood Count 3.28L, Hemoglobin 9.6L, Hematocrit 27.5L, Mean Corpuscular Volume 84, Mean Corpuscular Hemoglobin 29.2, Mean Corpuscular Hemoglobin Concent 34.9, Red Cell Distribution Width 10.9L, Platelet Count 375, Mean Platelet Volume 5.7L, Neutrophils (%) (Auto) 81.7H, Lymphocytes (%) (Auto) 6.1L, Monocytes (%) (Auto) 10.9H, Eosinophils (%) (Auto) 0.6, Basophils (%) (Auto) 0.8, Sodium Level 137, Potassium Level 3.2L, Chloride Level 102, Carbon Dioxide Level 23, Anion Gap 12, Blood Urea Nitrogen 35H, Creatinine 3.5H, Estimat Glomerular Filtration Rate 17.5, Glucose Level 86, Uric Acid 7.7H, Calcium Level 8.5, Phosphorus Level 4.7, Magnesium Level 2.1, Total Bilirubin 0.2, Aspartate Amino Transf (AST/SGOT) 17, Alanine Aminotransferase (ALT/SGPT) 10L, Alkaline Phosphatase 70, C-Reactive Protein, Quantitative 5.8H, Pro-B-Type Natriuretic Peptide 02134D, Total Protein 6.0L, Albumin 2.4L, Globulin 3.6, Albumin/Globulin Ratio 0.7L Height (Feet): 5 Height (Inches): 5.00 Weight (Pounds): 179 General Appearance: confused Cardiovascular: regular rhythm Respiratory/Chest: lungs clear Abdomen: soft Rosalba Estrada MD May 26, 2019 12:07
--- NOTE | 2019-05-26 12:29 | NUR ---
*-* DISCHARGE PLANNING*-* CLINICALS HAVE BEEN FAXED TO: [facility] P: [phone] F: [phone] WATING FOR ACCEPTANCE
--- NOTE | 2019-05-26 14:00 | NUR ---
NEW ADMISSION: Pt arrived to the floor via gurney at 1400, Admitting Dx; Anemia with hgb 6.8, Admitting Dr Soto. Pt was transferred to bed with max assist, aircraft mechanic structures placed on patient. Pt belonging was reviewed with COAL CHEMIST. Pt is AOx4, pt is on room air with no sign of sob or resp distress. Pt has VSS. Pt has left upper arm PICC double lumen -arrived to ER with PICC- was receiving home abx. Pt has K 2.5, ER gave 40oral meq and IV 10 meq IVPB. Skin is intact, no open wounds. Pt has colostomy bag in mid lower left quadrant. Bed in lowest locked position, will continue with plan of care Addendum: 05/26/19 at 1601 by SHAAN AZEVEDO RN WRONG PATIENT
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
[2019-05-26 16:00] VITALS: BP 113/63
--- NOTE | 2019-05-26 16:19 | NUR ---
*-* DISCHARGE PLANNING*-* PATIENT HAS BEEN ACCEPTED AT: [facility] P: [phone] F: [phone] RM# 126.B SKILLED, SPOKE WITH [employer]RON [employer]YS SALES TE[employer]ER K[employer].
--- NOTE | 2019-05-26 19:55 | NUR ---
NURSE NOTES: Received patient report from MICAELA Marquez. Patient in bed sleeping. There are no signs of distress or pain noted at this time. AOx 2. IV checked, patent flushed. There are no signs of erythema, infiltration, or bleeding. Bed in the lowest position, call light within reach, and breaks on. Will continue plan of care.
[2019-05-26 20:00] VITALS: BP 150/92
[2019-05-26] MEDS: Iron Sucrose 100 MG in NS 55 ML IV SCH (21:10)
[2019-05-26] MEDS: Atorvastatin 20mg tab ORAL SCH (21:11)
[2019-05-27] VITALS: BP 152/84
[2019-05-27 04:00] VITALS: BP 124/57
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
[2019-05-27] MEDS: NovoLOG Insulin Flexpen SUBQ SCH ×3 (06:30→18:08)
[2019-05-27] MEDS: sitaGLIPtin 50mg tab ORAL SCH (06:41)
[2019-05-27] MEDS: Nateglinide 60mg tab ORAL SCH (06:41)
[2019-05-27 06:57] LABS: BASOPHILS % (AUTO) 1.2 % (0.0-2.0); EOSINOPHILS % (AUTO) 1.2 % (0.0-3.0); HEMATOCRIT 28.9 % (42.0-52.0); LYMPHOCYTES % (AUTO) 14.6 % (20.0-45.0); MEAN CORPUSCULAR VOLUME 86 FL (80-99); MONOCYTES % (AUTO) 12.9 % (1.0-10.0); NEUTROPHILS % (AUTO) 70.2 % (45.0-75.0); PLATELET COUNT 395 K/UL (150-450); RED BLOOD COUNT 3.37 M/UL (4.70-6.10); RED CELL DISTRIBUTION WIDTH 11.4 % (11.6-14.8); WHITE BLOOD COUNT 8.9 K/UL (4.8-10.8)
--- NOTE | 2019-05-27 07:22 | General Progress Note ---
Assessment/Plan Problem List: (1) Hyponatremia ICD Codes: E87.1 - Hypo-osmolality and hyponatremia SNOMED: 12062106, 531505316 (2) ARF (acute renal failure) ICD Codes: N17.9 - Acute kidney failure, unspecified SNOMED: 10006802, 773251022 Qualifiers: Qualified Codes: N17.9 - Acute kidney failure, unspecified (3) Acute exacerbation of CHF (congestive heart failure) ICD Codes: I50.9 - Heart failure, unspecified SNOMED: 045400541, [id number] Qualifiers: Qualified Codes: I50.9 - Heart failure, unspecified (4) Acute encephalopathy ICD Codes: G93.40 - Encephalopathy, unspecified SNOMED: 42969334, 062660800 (5) Hyperglycemia due to type 2 diabetes mellitus ICD Codes: E11.65 - Type 2 diabetes mellitus with hyperglycemia SNOMED: 728789038449538, 16121525 Qualifiers: Qualified Codes: E11.65 - Type 2 diabetes mellitus with hyperglycemia Status: progressing Assessment/Plan: change Levemir to 10 units qhs DC Starlix 60 mg ac tid continue Januvia 50 mg daily continue Novolog sliding scale ac / hs Subjective Allergies: Coded Allergies: No Known Allergies (Unverified , 09/24/12) Subjective events noted glucose values are stable Item Value Date Time Bedside Blood Glucose 113 mg/dl 05/27/19 0637 Bedside Blood Glucose 113 mg/dl 05/26/19 2100 Bedside Blood Glucose 91 mg/dl 05/26/19 1733 Bedside Blood Glucose 88 mg/dl 05/26/19 1146 Bedside Blood Glucose 71 mg/dl 05/26/19 0900 Bedside Blood Glucose 92 mg/dl 05/26/19 0634 Objective Last 24 Hour Vital Signs Date Time Temp Pulse Resp B/P (MAP) Pulse Ox O2 Delivery O2 Flow Rate FiO2 05/27/19 04:00 98.4 80 16 124/57 (79) 96 05/27/19 00:00 99.0 83 16 152/84 (106) 96 05/26/19 21:12 83 150/92 05/26/19 21:00 Room Air 05/26/19 20:00 99.7 83 16 150/92 (111) 96 05/26/19 16:00 72 05/26/19 16:00 97.9 85 20 113/63 (80) 96 05/26/19 12:00 97.4 83 20 132/82 (99) 96 05/26/19 12:00 80 05/26/19 10:12 72 140/80 05/26/19 10:12 72 140/80 05/26/19 09:00 Room Air 05/26/19 08:00 97.4 72 20 140/80 (100) 94 05/26/19 08:00 72 Intake and Output 05/26/19 05/27/19 19:00 07:00 Intake Total 236 ml 100 ml Output Total 700 ml 600 ml Balance -464 ml -500 ml Intake Oral 236 ml 100 ml Output Urine Total 700 ml 600 ml # Voids 1 Laboratory Tests 05/27/19 06:18: White Blood Count 8.9, Red Blood Count 3.37L, Hemoglobin 10.0L, Hematocrit 28.9L , Mean Corpuscular Volume 86, Mean Corpuscular Hemoglobin 29.6, Mean Corpuscular Hemoglobin Concent 34.6, Red Cell Distribution Width 11.4L, Platelet Count 395, Mean Platelet Volume 5.8L, Neutrophils (%) (Auto) 70.2, Lymphocytes (%) (Auto) 14.6L, Monocytes (%) (Auto) 12.9H, Eosinophils (%) (Auto ) 1.2, Basophils (%) (Auto) 1.2, Sodium Level [Pending], Potassium Level [ Pending], Chloride Level [Pending], Carbon Dioxide Level [Pending], Blood Urea Nitrogen [Pending], Creatinine [Pending], Estimat Glomerular Filtration Rate [ Pending], Glucose Level [Pending], Calcium Level [Pending], Phosphorus Level [ Pending], Magnesium Level [Pending], Total Bilirubin [Pending], Aspartate Amino Transf (AST/SGOT) [Pending], Alanine Aminotransferase (ALT/SGPT) [Pending], Alkaline Phosphatase [Pending], C-Reactive Protein, Quantitative [Pending], Pro- B-Type Natriuretic Peptide [Pending], Total Protein [Pending], Albumin [Pending] , Globulin [Pending] Height (Feet): 5 Height (Inches): 5.00 Weight (Pounds): 179 General Appearance: no apparent distress Neck: normal alignment Cardiovascular: normal rate Respiratory/Chest: lungs clear Objective Current Medications Medications (Trade) Dose Ordered Sig/Brendon Route PRN Reason Start Time Stop Time Status Last Admin Dose Admin Allopurinol (allopurinoL) 300 mg DAILY ORAL 05/25/19 09:00 06/24/19 08:59 05/26/19 10:12 Amlodipine Besylate (Norvasc) 10 mg DAILY ORAL 05/22/19 10:00 06/21/19 09:59 05/26/19 10:12 Aspirin (ASA) 81 mg DAILY ORAL 05/22/19 10:15 07/06/19 10:14 05/26/19 10:12 Atorvastatin Calcium (Lipitor) 20 mg BEDTIME ORAL 05/22/19 21:00 08/20/19 20:59 05/26/19 21:11 Ceftriaxone Sodium 1 gm/ Dextrose 55 ml @ 110 mls/hr Q24H IVPB 05/22/19 11:00 05/29/19 10:59 05/26/19 10:36 Dextrose (Dextrose 50%) 25 ml Q30M PRN IV Hypoglycemia 05/23/19 07:00 08/21/19 06:59 Dextrose (Dextrose 50%) 50 ml Q30M PRN IV Hypoglycemia 05/23/19 07:00 08/21/19 06:59 Docusate Sodium (Colace) 100 mg THREE TIMES A DAY ORAL 05/22/19 13:00 06/21/19 12:59 05/26/19 17:33 Doxycycline Monohydrate (Doxycycline Monohydrate) 100 mg EVERY 12 HOURS ORAL 05/25/19 13:15 06/01/19 13:14 05/26/19 21:10 Hydralazine HCl (Apresoline) 25 mg Q4H PRN ORAL bp over 160 syst 05/22/19 09:59 08/20/19 09:58 Insulin Aspart (NovoLOG) BEFORE MEALS AND HS SUBQ 05/22/19 21:00 08/20/19 20:59 05/25/19 21:00 Insulin Detemir (Levemir) 10 units BID SUBQ 05/25/19 09:00 08/20/19 19:59 05/25/19 18:18 Iron Sucrose 100 mg/Sodium Chloride 60 ml @ 240 mls/hr BEDTIME IV 05/24/19 21:00 05/28/19 21:14 05/26/19 21:10 Lorazepam (Ativan) 1 mg Q4H PRN ORAL For Anxiety 05/22/19 18:30 05/29/19 18:29 05/25/19 16:23 Metoprolol Tartrate (Lopressor) 12.5 mg Q12HR ORAL 05/24/19 21:00 08/22/19 20:59 05/26/19 21:12 Nateglinide (Starlix) 60 mg TIAC ORAL 05/25/19 11:30 06/24/19 11:29 05/27/19 06:41 Olanzapine (ZyPREXA) 2.5 mg BID ORAL 05/25/19 09:30 07/09/19 09:29 05/26/19 10:12 Pantoprazole (Protonix) 40 mg EVERY 12 HOURS ORAL 05/22/19 10:00 06/21/19 09:59 05/26/19 21:11 Sitagliptin Phosphate (Januvia) 50 mg ACBREAKFAST ORAL 05/22/19 10:01 06/21/19 10:00 05/27/19 06:41 Sodium Chloride 1,000 ml @ 75 mls/hr [id number] IV 05/23/19 13:30 06/22/19 13:29 05/26/19 22:24 Henri Hernandes MD May 27, 2019 07:22
[2019-05-27 07:30] LABS: ALANINE AMINOTRANSFERASE < 6 U/L (12-78); ALBUMIN 2.4 G/DL (3.4-5.0); ALBUMIN/GLOBULIN RATIO 0.6 (1.0-2.7); ALKALINE PHOSPHATASE 75 U/L (46-116); ANION GAP 13 mmol/L (5-15); ASPARTATE AMINO TRANSFERASE 17 U/L (15-37); BILIRUBIN,TOTAL 0.3 MG/DL (0.2-1.0); BLOOD UREA NITROGEN 33 mg/dL (7-18); CALCIUM 8.2 MG/DL (8.5-10.1); CARBON DIOXIDE 21 MMOL/L (21-32); CHLORIDE 105 MMOL/L (98-107); CREATININE 3.6 MG/DL (0.55-1.30); PHOSPHORUS 4.1 MG/DL (2.5-4.9); POTASSIUM 3.9 MMOL/L (3.5-5.1); SODIUM 139 MMOL/L (136-145)
[2019-05-27 08:00] VITALS: BP 159/79
--- NOTE | 2019-05-27 08:24 | NUR ---
HAND-OFF: Report given to Endorsed plan of care to MICAELA Mcarthur.
--- NOTE | 2019-05-27 08:37 | NUR ---
*-* DISCHARGE PLANNING*-* PATIENT HAS BEEN ACCEPTED AT: [facility] P: [phone] ~~~ FOR NURSE TO NURSE REPORT F: [phone] # 126.B SKILLED CONFIRMED WITH DAYRON
[2019-05-27] MEDS: OLANZapine 2.5mg tab ORAL SCH ×2 (09:00→18:09)
[2019-05-27] MEDS ORDERED: DOXYCYCLINE MO100 MG ORAL (09:48)
[2019-05-27] MEDS ORDERED: CEFTRIAXON1 GM/50 ML IV (09:49)
[2019-05-27] MEDS: Metoprolol Tartrate 12.5mg TAB ORAL SCH (10:06)
[2019-05-27] MEDS: Docusate 100mg cap ORAL SCH ×3 (10:06→18:09)
[2019-05-27] MEDS: Doxycycline Monohydrate 100mg ORAL SCH (10:06)
[2019-05-27] MEDS: Aspirin Baby 81mg ORAL SCH (10:06)
--- NOTE | 2019-05-27 10:36 | NUR ---
*-* DISCHARGE PLANNED*-* PATIENT HAS BEEN ACCEPTED AND WILL BE DISCHARGE TO: [facility] P: [phone] PER NURSE TO NURSE REPORT RM# 126.B SKILLED, SPOKE WITH [facility] IS SET FOR WILL CALL Addendum: 05/27/19 at 1116 by ROXANA CALLOWAY *-* DISCHARGE PLANNED*-* PATIENT HAS BEEN ACCEPTED AND WILL BE DISCHARGE TO: [facility] P: [phone] PER NURSE TO NURSE REPORT RM# 126.B SKILLED, SPOKE WITH [facility] IS SET FOR 1:30PM
--- NOTE | 2019-05-27 10:43 | NUR ---
RD ASSESSMENT & RECOMMENDATIONS SEE CARE ACTIVITY FOR COMPLETE ASSESSMENT DAILY ESTIMATED NEEDS: Needs based on wound, DM, renal 66.4kg 25-30 kcals/kg 5434-7244 total kcals 1.25-1.5 g protein/kg 83-100 g total protein Fluid per MD NUTRITION DIAGNOSIS: Swallowing difficulty r/t possible aspiration risk, dysphagia as evidenced by s/p BUNG DROPPER eval w/ recs for ms ground texture diet-> now upgraded to soft easy chew. PO DIET RECOMMENDATIONS: Maintain CCHO MED/ RENAL diet + NEPRO 1 tetra qdaily (texture per BUNG DROPPER) ADDITIONAL RECOMMENDATIONS: 1) Obtain a calibrated bed scale d/t conflicting wts: EMR wt: 218# vs Bed wt: 176# 2) Monitor po intake, need for snacks, Nepro Rec to hold psychotropic meds near mealtime 3) wound care-> add MIGEL BID, Vit C 250mg daily 4) Monitor for hypoglycemia 5) rec to redraw for HgA1C
--- NOTE | 2019-05-27 10:58 | Infectious Diseases Prog Note ---
Assessment/Plan Assessment/Plan IMPRESSION: 1. Leukocytosis resolved 2. Renal failure, likely acute on chronic. 3. Diabetes mellitus with hyperglycemia. 4. Hypertension. 5. Obesity. 6. Hyponatremia. 7. Sever aortic stenosis 8. RBBB 9. 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 RECOMMENDATION: Continue with ceftriaxone & PO doxycycline X 7 days inconclusive right foot MRI Will f/u Wound culture [employer]ist input will be appreciated Subjective ROS Limited/Unobtainable: Yes Genitourinary: Reports: other - on bedside HD Neurologic: Reports: confusion, other - on restraint Allergies: Coded Allergies: No Known Allergies (Unverified , 09/24/12) Objective Vital Signs Last 24 Hour Vital Signs Date Time Temp Pulse Resp B/P (MAP) Pulse Ox O2 Delivery O2 Flow Rate FiO2 05/27/19 10:06 81 159/79 05/27/19 10:05 81 159/79 05/27/19 04:00 98.4 80 16 124/57 (79) 96 05/27/19 04:00 75 05/27/19 00:00 99.0 83 16 152/84 (106) 96 05/27/19 00:00 81 05/26/19 21:12 83 150/92 05/26/19 21:00 Room Air 05/26/19 20:00 99.7 83 16 150/92 (111) 96 05/26/19 16:00 72 05/26/19 16:00 97.9 85 20 113/63 (80) 96 05/26/19 12:00 97.4 83 20 132/82 (99) 96 05/26/19 12:00 80 Height (Feet): 5 Height (Inches): 5.00 Weight (Pounds): 179 HEENT: mucous membranes moist Respiratory/Chest: lungs clear Cardiovascular: normal rate Abdomen: soft, non tender Extremities: no edema Skin: ulcers Neurologic/Psychiatric: disoriented Microbiology Date/Time Source Procedure Growth Status 05/25/19 23:20 Foot Right Gram Stain - Final Resulted 05/25/19 23:20 Wound Culture - Preliminary Staphylococcus Sp Coag Neg Resulted Laboratory Tests Test 05/27/19 06:18 White Blood Count 8.9 K/UL (4.8-10.8) Red Blood Count 3.37 M/UL (4.70-6.10) L Hemoglobin 10.0 G/DL (14.2-18.0) L Hematocrit 28.9 % (42.0-52.0) L Mean Corpuscular Volume 86 FL (80-99) Mean Corpuscular Hemoglobin 29.6 PG (27.0-31.0) Mean Corpuscular Hemoglobin Concent 34.6 G/DL (32.0-36.0) Red Cell Distribution Width 11.4 % (11.6-14.8) L Platelet Count 395 K/UL (150-450) Mean Platelet Volume 5.8 FL (6.5-10.1) L Neutrophils (%) (Auto) 70.2 % (45.0-75.0) Lymphocytes (%) (Auto) 14.6 % (20.0-45.0) L Monocytes (%) (Auto) 12.9 % (1.0-10.0) H Eosinophils (%) (Auto) 1.2 % (0.0-3.0) Basophils (%) (Auto) 1.2 % (0.0-2.0) Sodium Level 139 MMOL/L (136-145) Potassium Level 3.9 MMOL/L (3.5-5.1) Chloride Level 105 MMOL/L (98-107) Carbon Dioxide Level 21 MMOL/L (21-32) Anion Gap 13 mmol/L (5-15) Blood Urea Nitrogen 33 mg/dL (7-18) H Creatinine 3.6 MG/DL (0.55-1.30) H Estimat Glomerular Filtration Rate 16.9 mL/min (>60) Glucose Level 115 MG/DL (74-106) H Calcium Level 8.2 MG/DL (8.5-10.1) L Phosphorus Level 4.1 MG/DL (2.5-4.9) Magnesium Level 2.0 MG/DL (1.8-2.4) Total Bilirubin 0.3 MG/DL (0.2-1.0) Aspartate Amino Transf (AST/SGOT) 17 U/L (15-37) Alanine Aminotransferase (ALT/SGPT) < 6 U/L (12-78) L Alkaline Phosphatase 75 U/L (46-116) C-Reactive Protein, Quantitative 9.1 mg/dL (0.00-0.90) H Pro-B-Type Natriuretic Peptide 22390 pg/mL (0-125) H Total Protein 6.2 G/DL (6.4-8.2) L Albumin 2.4 G/DL (3.4-5.0) L Globulin 3.8 g/dL Albumin/Globulin Ratio 0.6 (1.0-2.7) L Current Medications Medications (Trade) Dose Ordered Sig/Brendon Route PRN Reason Start Time Stop Time Status Last Admin Dose Admin Allopurinol (allopurinoL) 300 mg DAILY ORAL 05/25/19 09:00 06/24/19 08:59 05/27/19 10:05 Amlodipine Besylate (Norvasc) 10 mg DAILY ORAL 05/22/19 10:00 06/21/19 09:59 05/27/19 10:05 Aspirin (ASA) 81 mg DAILY ORAL 05/22/19 10:15 07/06/19 10:14 05/27/19 10:06 Atorvastatin Calcium (Lipitor) 20 mg BEDTIME ORAL 05/22/19 21:00 08/20/19 20:59 05/26/19 21:11 Ceftriaxone Sodium 1 gm/ Dextrose 55 ml @ 110 mls/hr Q24H IVPB 05/22/19 11:00 05/29/19 10:59 05/26/19 10:36 Dextrose (Dextrose 50%) 25 ml Q30M PRN IV Hypoglycemia 05/23/19 07:00 08/21/19 06:59 Dextrose (Dextrose 50%) 50 ml Q30M PRN IV Hypoglycemia 05/23/19 07:00 08/21/19 06:59 Docusate Sodium (Colace) 100 mg THREE TIMES A DAY ORAL 05/22/19 13:00 06/21/19 12:59 05/27/19 10:06 Doxycycline Monohydrate (Doxycycline Monohydrate) 100 mg EVERY 12 HOURS ORAL 05/25/19 13:15 06/01/19 13:14 05/27/19 10:06 Hydralazine HCl (Apresoline) 25 mg Q4H PRN ORAL bp over 160 syst 05/22/19 09:59 08/20/19 09:58 Insulin Aspart (NovoLOG) BEFORE MEALS AND HS SUBQ 05/22/19 21:00 08/20/19 20:59 05/25/19 21:00 Insulin Detemir (Levemir) 10 units QHS SUBQ 05/27/19 21:00 08/20/19 19:59 Iron Sucrose 100 mg/Sodium Chloride 60 ml @ 240 mls/hr BEDTIME IV 05/24/19 21:00 05/28/19 21:14 05/26/19 21:10 Lorazepam (Ativan) 1 mg Q4H PRN ORAL For Anxiety 05/22/19 18:30 05/29/19 18:29 05/25/19 16:23 Metoprolol Tartrate (Lopressor) 12.5 mg Q12HR ORAL 05/24/19 21:00 08/22/19 20:59 05/27/19 10:06 Olanzapine (ZyPREXA) 2.5 mg BID ORAL 05/25/19 09:30 07/09/19 09:29 05/26/19 10:12 Pantoprazole (Protonix) 40 mg EVERY 12 HOURS ORAL 05/22/19 10:00 06/21/19 09:59 05/27/19 10:06 Sitagliptin Phosphate (Januvia) 50 mg ACBREAKFAST ORAL 05/22/19 10:01 06/21/19 10:00 05/27/19 06:41 Sodium Chloride 1,000 ml @ 75 mls/hr [id number] IV 05/23/19 13:30 06/22/19 13:29 05/26/19 22:24 Kavon Beasley MD May 27, 2019 10:58
--- NOTE | 2019-05-27 11:16 | NUR ---
*-* DISCHARGE PLANNED*-* PATIENT HAS BEEN ACCEPTED AT: [facility] P: [phone] ~~~ FOR NURSE TO NURSE REPORT F: [phone] CONFIRMED WITH DAYRON AT [facility] RM# 126.B SKILLED [facility] PICKUP TIME @130PM NURSE INSTRUCTED TO UPDATE DAUGHTERS
--- NOTE | 2019-05-27 11:41 | Infectious Diseases Prog Note ---
Assessment/Plan Assessment/Plan IMPRESSION: 1. Leukocytosis resolved 2. Renal failure, likely acute on chronic. 3. Diabetes mellitus with hyperglycemia. 4. Hypertension. 5. Obesity. 6. Hyponatremia. 7. Sever aortic stenosis 8. RBBB 9. 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 RECOMMENDATION: Continue with ceftriaxone & PO doxycycline X 7 days inconclusive right foot MRI Wound culture : coagulase negative staph Subjective ROS Limited/Unobtainable: Yes Neurologic: Reports: other - more alert , off restriant Allergies: Coded Allergies: No Known Allergies (Unverified , 09/24/12) Objective Vital Signs Last 24 Hour Vital Signs Date Time Temp Pulse Resp B/P (MAP) Pulse Ox O2 Delivery O2 Flow Rate FiO2 05/27/19 10:06 81 159/79 05/27/19 10:05 81 159/79 05/27/19 04:00 98.4 80 16 124/57 (79) 96 05/27/19 04:00 75 05/27/19 00:00 99.0 83 16 152/84 (106) 96 05/27/19 00:00 81 05/26/19 21:12 83 150/92 05/26/19 21:00 Room Air 05/26/19 20:00 99.7 83 16 150/92 (111) 96 05/26/19 16:00 72 05/26/19 16:00 97.9 85 20 113/63 (80) 96 05/26/19 12:00 97.4 83 20 132/82 (99) 96 05/26/19 12:00 80 Height (Feet): 5 Height (Inches): 5.00 Weight (Pounds): 179 General Appearance: no acute distress HEENT: mucous membranes moist Respiratory/Chest: lungs clear Cardiovascular: normal rate Abdomen: soft, non tender Extremities: other - mild pedal edema Skin: ulcers Neurologic/Psychiatric: alert, responsive Microbiology Date/Time Source Procedure Growth Status 05/25/19 23:20 Foot Right Gram Stain - Final Resulted 05/25/19 23:20 Wound Culture - Preliminary Staphylococcus Sp Coag Neg Resulted Laboratory Tests Test 05/27/19 06:18 White Blood Count 8.9 K/UL (4.8-10.8) Red Blood Count 3.37 M/UL (4.70-6.10) L Hemoglobin 10.0 G/DL (14.2-18.0) L Hematocrit 28.9 % (42.0-52.0) L Mean Corpuscular Volume 86 FL (80-99) Mean Corpuscular Hemoglobin 29.6 PG (27.0-31.0) Mean Corpuscular Hemoglobin Concent 34.6 G/DL (32.0-36.0) Red Cell Distribution Width 11.4 % (11.6-14.8) L Platelet Count 395 K/UL (150-450) Mean Platelet Volume 5.8 FL (6.5-10.1) L Neutrophils (%) (Auto) 70.2 % (45.0-75.0) Lymphocytes (%) (Auto) 14.6 % (20.0-45.0) L Monocytes (%) (Auto) 12.9 % (1.0-10.0) H Eosinophils (%) (Auto) 1.2 % (0.0-3.0) Basophils (%) (Auto) 1.2 % (0.0-2.0) Sodium Level 139 MMOL/L (136-145) Potassium Level 3.9 MMOL/L (3.5-5.1) Chloride Level 105 MMOL/L (98-107) Carbon Dioxide Level 21 MMOL/L (21-32) Anion Gap 13 mmol/L (5-15) Blood Urea Nitrogen 33 mg/dL (7-18) H Creatinine 3.6 MG/DL (0.55-1.30) H Estimat Glomerular Filtration Rate 16.9 mL/min (>60) Glucose Level 115 MG/DL (74-106) H Calcium Level 8.2 MG/DL (8.5-10.1) L Phosphorus Level 4.1 MG/DL (2.5-4.9) Magnesium Level 2.0 MG/DL (1.8-2.4) Total Bilirubin 0.3 MG/DL (0.2-1.0) Aspartate Amino Transf (AST/SGOT) 17 U/L (15-37) Alanine Aminotransferase (ALT/SGPT) < 6 U/L (12-78) L Alkaline Phosphatase 75 U/L (46-116) C-Reactive Protein, Quantitative 9.1 mg/dL (0.00-0.90) H Pro-B-Type Natriuretic Peptide 58857 pg/mL (0-125) H Total Protein 6.2 G/DL (6.4-8.2) L Albumin 2.4 G/DL (3.4-5.0) L Globulin 3.8 g/dL Albumin/Globulin Ratio 0.6 (1.0-2.7) L Current Medications Medications (Trade) Dose Ordered Sig/Brendon Route PRN Reason Start Time Stop Time Status Last Admin Dose Admin Allopurinol (allopurinoL) 300 mg DAILY ORAL 05/25/19 09:00 06/24/19 08:59 05/27/19 10:05 Amlodipine Besylate (Norvasc) 10 mg DAILY ORAL 05/22/19 10:00 06/21/19 09:59 05/27/19 10:05 Aspirin (ASA) 81 mg DAILY ORAL 05/22/19 10:15 07/06/19 10:14 05/27/19 10:06 Atorvastatin Calcium (Lipitor) 20 mg BEDTIME ORAL 05/22/19 21:00 08/20/19 20:59 05/26/19 21:11 Ceftriaxone Sodium 1 gm/ Dextrose 55 ml @ 110 mls/hr Q24H IVPB 05/22/19 11:00 05/29/19 10:59 05/26/19 10:36 Dextrose (Dextrose 50%) 25 ml Q30M PRN IV Hypoglycemia 05/23/19 07:00 08/21/19 06:59 Dextrose (Dextrose 50%) 50 ml Q30M PRN IV Hypoglycemia 05/23/19 07:00 08/21/19 06:59 Docusate Sodium (Colace) 100 mg THREE TIMES A DAY ORAL 05/22/19 13:00 06/21/19 12:59 05/27/19 10:06 Doxycycline Monohydrate (Doxycycline Monohydrate) 100 mg EVERY 12 HOURS ORAL 05/25/19 13:15 06/01/19 13:14 05/27/19 10:06 Hydralazine HCl (Apresoline) 25 mg Q4H PRN ORAL bp over 160 syst 05/22/19 09:59 08/20/19 09:58 Insulin Aspart (NovoLOG) BEFORE MEALS AND HS SUBQ 05/22/19 21:00 08/20/19 20:59 05/25/19 21:00 Insulin Detemir (Levemir) 10 units QHS SUBQ 05/27/19 21:00 08/20/19 19:59 Iron Sucrose 100 mg/Sodium Chloride 60 ml @ 240 mls/hr BEDTIME IV 05/24/19 21:00 05/28/19 21:14 05/26/19 21:10 Lorazepam (Ativan) 1 mg Q4H PRN ORAL For Anxiety 05/22/19 18:30 05/29/19 18:29 05/25/19 16:23 Metoprolol Tartrate (Lopressor) 12.5 mg Q12HR ORAL 05/24/19 21:00 08/22/19 20:59 05/27/19 10:06 Olanzapine (ZyPREXA) 2.5 mg BID ORAL 05/25/19 09:30 07/09/19 09:29 05/26/19 10:12 Pantoprazole (Protonix) 40 mg EVERY 12 HOURS ORAL 05/22/19 10:00 06/21/19 09:59 05/27/19 10:06 Sitagliptin Phosphate (Januvia) 50 mg ACBREAKFAST ORAL 05/22/19 10:01 06/21/19 10:00 05/27/19 06:41 Sodium Chloride 1,000 ml @ 75 mls/hr [id number] IV 05/23/19 13:30 06/22/19 13:29 05/27/19 11:30 Kavon Beasley MD May 27, 2019 11:41
[2019-05-27] MEDS: cefTRIAXone 1 GM in D5W 55 ML IVPB SCH (11:44)
[2019-05-27 12:00] VITALS: BP 152/73
--- NOTE | 2019-05-27 13:11 | Psych Consult Progress Note ---
Psychiatry Progress Note Psychiatry Progress Note Subjective this is the late entry 05/26/19 the system was down last night/ Medications Current Medications Medications (Trade) Dose Ordered Sig/Brendon Route PRN Reason Start Time Stop Time Status Last Admin Dose Admin Allopurinol (allopurinoL) 300 mg DAILY ORAL 05/25/19 09:00 06/24/19 08:59 05/27/19 10:05 Amlodipine Besylate (Norvasc) 10 mg DAILY ORAL 05/22/19 10:00 06/21/19 09:59 05/27/19 10:05 Aspirin (ASA) 81 mg DAILY ORAL 05/22/19 10:15 07/06/19 10:14 05/27/19 10:06 Atorvastatin Calcium (Lipitor) 20 mg BEDTIME ORAL 05/22/19 21:00 08/20/19 20:59 05/26/19 21:11 Ceftriaxone Sodium 1 gm/ Dextrose 55 ml @ 110 mls/hr Q24H IVPB 05/22/19 11:00 05/29/19 10:59 05/27/19 11:44 Dextrose (Dextrose 50%) 25 ml Q30M PRN IV Hypoglycemia 05/23/19 07:00 08/21/19 06:59 Dextrose (Dextrose 50%) 50 ml Q30M PRN IV Hypoglycemia 05/23/19 07:00 08/21/19 06:59 Docusate Sodium (Colace) 100 mg THREE TIMES A DAY ORAL 05/22/19 13:00 06/21/19 12:59 05/27/19 10:06 Doxycycline Monohydrate (Doxycycline Monohydrate) 100 mg EVERY 12 HOURS ORAL 05/25/19 13:15 06/01/19 13:14 05/27/19 10:06 Hydralazine HCl (Apresoline) 25 mg Q4H PRN ORAL bp over 160 syst 05/22/19 09:59 08/20/19 09:58 Insulin Aspart (NovoLOG) BEFORE MEALS AND HS SUBQ 05/22/19 21:00 08/20/19 20:59 05/25/19 21:00 Insulin Detemir (Levemir) 10 units QHS SUBQ 05/27/19 21:00 08/20/19 19:59 Iron Sucrose 100 mg/Sodium Chloride 60 ml @ 240 mls/hr BEDTIME IV 05/24/19 21:00 05/28/19 21:14 05/26/19 21:10 Lorazepam (Ativan) 1 mg Q4H PRN ORAL For Anxiety 05/22/19 18:30 05/29/19 18:29 05/25/19 16:23 Metoprolol Tartrate (Lopressor) 12.5 mg Q12HR ORAL 05/24/19 21:00 08/22/19 20:59 05/27/19 10:06 Olanzapine (ZyPREXA) 2.5 mg BID ORAL 05/25/19 09:30 07/09/19 09:29 05/26/19 10:12 Pantoprazole (Protonix) 40 mg EVERY 12 HOURS ORAL 05/22/19 10:00 06/21/19 09:59 05/27/19 10:06 Sitagliptin Phosphate (Januvia) 50 mg ACBREAKFAST ORAL 05/22/19 10:01 06/21/19 10:00 05/27/19 06:41 Sodium Chloride 1,000 ml @ 75 mls/hr [id number] IV 05/23/19 13:30 06/22/19 13:29 05/27/19 11:30 Neurological/Psychiatric: Reports: anxiety, emotional problems Allergies: Coded Allergies: No Known Allergies (Unverified , 09/24/12) Objective Data Height (Feet): 5 Height (Inches): 5.00 Weight (Pounds): 179 General Appearance: no apparent distress, alert, confused, agitated Speech: clear Mental Status Exam - Thought C: paranoia Perceptual Disturbances: auditory Mental Status Exam - Suicidal: not present Additional Comments: Alert and oriented times to self and place. Mood is anxious. Affect is constricted, congruent with mood. Thought process is concrete. Thought content, no suicidal or homicidal ideation. Cognition is impaired. Insight and judgment impaired. ASSESSMENT: Acute encephalopathy. PLAN: will continue current medications. Zyprexa for hallucinations. Assessment/Plan Status: Vamshi Roland MD May 27, 2019 13:11
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
--- NOTE | 2019-05-27 13:52 | NUR ---
*-* DISCHARGE PLANNED*-* PATIENT HAS BEEN ACCEPTED AND WILL BE DISCHARGE TO: [facility] P: [phone] PER NURSE TO NURSE REPORT RM# [id number] SKILLED, SPOKE WITH [employer] [facility] [employer]INE OPERATOR IS SET FOR WILL CALL PLACED CALL TO DAUGHTER, JARED GARCIA, WHO IS IN AGREEMENT WITH DISCHARGE Addendum: 05/27/19 at 1422 by ROXANA CALLOWAY CM *-* DISCHARGE PLANNED*-* PATIENT HAS BEEN ACCEPTED AND WILL BE DISCHARGE TO: [facility] P: [phone] PER NURSE TO NURSE REPORT RM# [id number] SKILLED, SPOKE WITH [employer] [facility] [employer] OPERATOR IS SET FOR WILL CALL Addendum: 05/27/19 at 1116 by ROXANA CALLOWAY *-* DISCHARGE PLANNED*-* PATIENT HAS BEEN ACCEPTED AND WILL BE DISCHARGE TO: [facility] P: [phone] PER NURSE TO NURSE REPORT RM# [id number] SKILLED, SPOKE WITH [facility] [employer] OPERATOR IS SET FOR 1:30PM
--- NOTE | 2019-05-27 14:17 | Diagnostic Imaging Report ---
Indication: Altered mental status Technique: MRI the brain performed utilizing T1 sagittal, T2 axial, T1 FLAIR axial, T2 FLAIR axial, T2*GRE and diffusion axial images without gadolinium. Comparison: Correlation made to noncontrast CT of the head 05/22/2019 Findings: No diffusion abnormalities are seen on diffusion weighted imaging. No focal signal dropout noted on T2*/GRE. The sulci, ventricles and cisterns are prominent consistent with atrophy. Mild periventricular and supratentorial white matter T2 hyperintensity are seen without mass effect, nonspecific finding most commonly related to chronic ischemic microvascular changes. There is no shift of midline structures. No significant extra-axial collections of fluid or blood are demonstrated. Expected signal flow voids are seen of the vessels of the skull base. Visualized mastoid air cells and paranasal sinuses are unremarkable. No focal bony calvarium or soft tissue lesions are seen. Postoperative changes of the right lens suggested. IMPRESSION: No acute intracranial abnormality. Specifically, no evidence of acute infarct, intracranial hemorrhage or abnormal mass effect. Atrophy and chronic ischemic microvascular changes.
--- NOTE | 2019-05-27 14:41 | Cardiac Electrophysiology PN ---
Assessment/Plan Assessment/Plan 1. Elevated BNP of more than 14,000, possible congestive heart failure. Echo EF of 55%. Ruled out for ID. BNP down to 7K 2. Severe with aortic valve area of 0.5 3. 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 On Lipitor, Lopressor, Norvasc and aspirin. 4. Hypertension, on Norvasc 10 mg daily, Lopressor 12.5 bid and p.r.n. hydralazine. 5. Uncontrolled diabetes, on insulin. 6. Leukocytosis, improving. 7. Acute on chronic renal failure. 8. Obesity. 9. Hyponatremia. 10. 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 Beasley Subjective Subjective Had Right foot MRI that showed osteo and is on iv Abx In SR. No CP or SOB. Had MRI brain today Objective Last 24 Hour Vital Signs Date Time Temp Pulse Resp B/P (MAP) Pulse Ox O2 Delivery O2 Flow Rate FiO2 05/27/19 12:00 98.2 80 20 152/73 (99) 96 05/27/19 10:06 81 159/79 05/27/19 10:05 81 159/79 05/27/19 08:00 97.5 81 18 159/79 (105) 96 05/27/19 04:00 98.4 80 16 124/57 (79) 96 05/27/19 04:00 75 05/27/19 00:00 99.0 83 16 152/84 (106) 96 05/27/19 00:00 81 05/26/19 21:12 83 150/92 05/26/19 21:00 Room Air 05/26/19 20:00 99.7 83 16 150/92 (111) 96 05/26/19 16:00 72 05/26/19 16:00 97.9 85 20 113/63 (80) 96 Intake and Output 05/26/19 05/27/19 19:00 07:00 Intake Total 236 ml 100 ml Output Total 700 ml 600 ml Balance -464 ml -500 ml Intake Oral 236 ml 100 ml Output Urine Total 700 ml 600 ml # Voids 1 Laboratory Tests Test 05/27/19 06:18 White Blood Count 8.9 K/UL (4.8-10.8) Red Blood Count 3.37 M/UL (4.70-6.10) L Hemoglobin 10.0 G/DL (14.2-18.0) L Hematocrit 28.9 % (42.0-52.0) L Mean Corpuscular Volume 86 FL (80-99) Mean Corpuscular Hemoglobin 29.6 PG (27.0-31.0) Mean Corpuscular Hemoglobin Concent 34.6 G/DL (32.0-36.0) Red Cell Distribution Width 11.4 % (11.6-14.8) L Platelet Count 395 K/UL (150-450) Mean Platelet Volume 5.8 FL (6.5-10.1) L Neutrophils (%) (Auto) 70.2 % (45.0-75.0) Lymphocytes (%) (Auto) 14.6 % (20.0-45.0) L Monocytes (%) (Auto) 12.9 % (1.0-10.0) H Eosinophils (%) (Auto) 1.2 % (0.0-3.0) Basophils (%) (Auto) 1.2 % (0.0-2.0) Sodium Level 139 MMOL/L (136-145) Potassium Level 3.9 MMOL/L (3.5-5.1) Chloride Level 105 MMOL/L (98-107) Carbon Dioxide Level 21 MMOL/L (21-32) Anion Gap 13 mmol/L (5-15) Blood Urea Nitrogen 33 mg/dL (7-18) H Creatinine 3.6 MG/DL (0.55-1.30) H Estimat Glomerular Filtration Rate 16.9 mL/min (>60) Glucose Level 115 MG/DL (74-106) H Calcium Level 8.2 MG/DL (8.5-10.1) L Phosphorus Level 4.1 MG/DL (2.5-4.9) Magnesium Level 2.0 MG/DL (1.8-2.4) Total Bilirubin 0.3 MG/DL (0.2-1.0) Aspartate Amino Transf (AST/SGOT) 17 U/L (15-37) Alanine Aminotransferase (ALT/SGPT) < 6 U/L (12-78) L Alkaline Phosphatase 75 U/L (46-116) C-Reactive Protein, Quantitative 9.1 mg/dL (0.00-0.90) H Pro-B-Type Natriuretic Peptide 37339 pg/mL (0-125) H Total Protein 6.2 G/DL (6.4-8.2) L Albumin 2.4 G/DL (3.4-5.0) L Globulin 3.8 g/dL Albumin/Globulin Ratio 0.6 (1.0-2.7) L Microbiology Date/Time Source Procedure Growth Status 05/25/19 23:20 Foot Right Gram Stain - Final Resulted 05/25/19 23:20 Wound Culture - Preliminary Staphylococcus Sp Coag Neg Resulted Objective HEAD AND NECK: No JVD. LUNGS: Coarse rhonchi. CARDIOVASCULAR: Regular S1 and S2 with no gallop or murmur. Sternotomy scar is healed. ABDOMEN: Soft. EXTREMITIES: Ulcer in the heel as well as ulcer in the right lateral thigh. Shashi Tucker MD May 27, 2019 14:40
[2019-05-27 16:00] VITALS: BP 141/71
--- NOTE | 2019-05-27 16:15 | Diagnostic Imaging Report ---
Indication: Lower extremity pain Technique: Duplex Doppler imaging of the arteries of the bilateral lower extremities. Comparison: None Findings: Right common femoral artery is patent with normal triphasic waveform. Femoral bifurcation appears patent. Imaged portions of the proximal fundus demonstrates artery are patent. Calcifications are noted within the right SFA. The right SFA appears patent however with a biphasic waveform in the mid SFA and a monophasic waveform in the distal SFA. There is atherosclerotic calcification. Popliteal artery is calcified but patent with a monophasic waveform. The tibial vessels on the right (anterior tibial, posterior tibial and peroneal) are patent with monophasic waveforms. Right dorsalis pedis artery is patent with monophasic waveform. Left common femoral artery is patent with a triphasic waveform. The femoral bifurcation appears patent. Imaged portions of the proximal profunda femoris artery on the left are patent. The left superficial femoral artery is calcified but patent with biphasic waveforms in its mid segment and monophasic waveform distally. The popliteal artery is patent with a monophasic waveform. The tibial arteries appear patent on the left however with monophasic waveforms. Left dorsalis pedis artery is patent with a monophasic waveform. IMPRESSION: Arteries to bilateral lower extremities appear patent with atherosclerotic calcifications. Monophasic waveforms noted bilaterally starting from the distal SFAs down to the dorsalis pedis arteries suggesting a degree of stenosis bilaterally. Recommend correlation with pulse exam and ABIs. Further evaluation with CT angiographic run off of the bilateral lower extremities can be obtained for a more sensitive evaluation as clinically indicated.
--- NOTE | 2019-05-27 16:45 | Consultation ---
DATE OF CONSULTATION: 05/27/2019 NEUROLOGIC CONSULTATION CONSULTING PHYSICIAN: Freddy Yeboah M.D. CHIEF COMPLAINT: This is the second [facility] admission for this 69-year-old right-handed man with a history of diabetes, hypertension, hyperlipidemia, coronary artery disease, tobacco abuse, and history of alcohol abuse. He was admitted with a chief complaint of altered mental status, congestive heart failure, elevated sugar, and uncontrolled diabetes. I was asked to see the patient because of his altered mental status. This patient had a virtuous hemorrhage in his right eye and was treated here at this hospital. However, recently he was referred here for the other problems. On admission, his CBC revealed a white count of 13,600 with a left shift. The platelets were normal. He was anemic with a hemoglobin of 12.1. Since that time, his white count is now in the normal range. His admission chemistries reveals sodium of 120, blood glucose of 486, BUN of 37, creatinine was 3.6. His osmolality on 05/23/2019 was 285. CPK on 05/23/2019 was 604. His troponin was normal. TSH was normal. On 05/23/2019, C-reactive protein was high at 6. Sodium has been corrected, it is now 139. The blood sugar is now 115 today. His liver functions are either low or normal. His Gram stain from the right foot revealed coagulase-negative Staphylococcus aureus. Head CT scan on 05/22/2019 revealed small-vessel disease of aging and no acute pathology, although there was a concern for early lacunar infarcts. MRI scan was recommended. Chest x-ray was normal. Renal ultrasound on 05/22/2019 revealed no hydronephrosis. The MRI of his right foot on 05/24/2019 was abnormal with an area of cellulitis, possible osteomyelitis, although reactive periostitis was favored. 2D echocardiogram revealed ejection fraction of 55%, borderline left ventricular hypertrophy, a small pericardial effusion, left atrial enlargement, focal aortic valve sclerosis with decreased cup excursion consistent with aortic stenosis, mitral anulus and aortic calcification. It was a technically difficult study. The EKG revealed right bundle-branch block with normal sinus rhythm and left anterior fascicular block and bifascicular block, minimal criteria of voltage for LVH, could be a normal variant. The patient was seen by Infectious Disease. Antibiotics were continued and the inpatient was improving. A Cardiology consultation was done. He suggested that the patient had severe aortic stenosis and a history of coronary artery bypass grafting, hypertension, acute on chronic renal failure, hyponatremia, and right posterior heel DTI. MRI pending. I was asked to see the patient because of his altered status. PAST MEDICAL HISTORY/PAST MEDICAL ILLNESSES: 1. Joe-eyszxvn-sdiyxiajo diabetes mellitus. 2. Hypertension. 3. Hyperlipidemia. 4. Heel wounds. 5. Coronary artery disease with stents. 6. Possible COPD. 7. Possible lacunar stroke. ALLERGIES: No known allergies. MEDICATIONS: He was on lisinopril, hydrochlorothiazide, Lantus, Zocor, and Coreg as an outpatient. FAMILY HISTORY: Unavailable. SOCIAL HISTORY: He has a history of alcohol abuse and history of smoking. SURGICAL HISTORY: He had a CABG procedure done. REVIEW OF SYSTEMS: Cannot be obtained. PHYSICAL EXAMINATION: GENERAL: He is a well-developed, mildly obese man, lying in bed, in no acute distress. VITAL SIGNS: Pulse is 81 and regular, blood pressure is 159/79, respiration rate is 16, temperature is 98.4 degrees. NEUROLOGIC EXAMINATION: MENTAL STATUS: He is basically awake, but attention span is impaired. Orientation, he knew the year was 2019, did not know the month. Place, he knew he was in the hospital, did not know the name of the hospital. Person, he was oriented to person. Language function, spoken speech was slow with decreased volume. He could not spell world in [place] backwards or forwards. He could follow one-step commands such as raising his hand, sticking out his tongue, closing his eyes, following my finger for eye movement, and raising his arms and legs. CRANIAL NERVE EXAMINATION: CRANIAL NERVE II: Visual guerrero appeared intact grossly to confrontation. CRANIAL NERVES III, IV, AND : Extraocular motility was full with saccadic smooth pursuit. Pupils are approximately 4 mm, round. CRANIAL NERVE V: Facial and corneal sensations appeared to be intact. CRANIAL NERVE VII: He has decreased left nasolabial fold. Smile appeared to be symmetric. CRANIAL NERVE VIII: Hearing was partially intact bilaterally. CRANIAL NERVE XII: Tongue protrudes in the midline without fasciculations or atrophy. MUSCLE EXAMINATION: Muscle bulk symmetrically decreased. Muscle tone reveals decreased tone and paratonia. Strength appears to be 5/5. There is no asterixis. COORDINATION: Wlikot-cyyjmt-hirs was basically intact. Ehtx-sp-yoin testing could not be done. GAIT AND STATION: Could not be tested. REFLEXES: +1 in the upper extremities, 0 at the knees and ankles with indefinite toe sign on the right, downgoing toe on the left. IMPRESSION: The exam was limited because of the pandemic. The patient has diffuse or multifocal metabolic encephalopathy. There is a question of new lacunar strokes. Therefore, an MRI scan of his brain would be necessary. If he has lacunar strokes small vessel disease and probably not large artery disease or a large artery disease need to be ruled out. The patient's encephalopathy is related to his elevated blood sugar. Blood sugar greater than 250 will cause changes in mental status. Also small vessel cerebrovascular disease as well as a combination of sepsis probably related to his foot infection and hyponatremia, which is generally improved. Technically, we are not supposed to elevate the serum sodium more than 8 to 10 mEq a day to exclude the possibility of demyelination, but there is no evidence that he has it at this time. However, an MRI scan can help us rule that out. I do not think he has any seizures. Therefore, I do not think an EEG would be that helpful, although if he has diffuse slowing, would suggest a worse prognosis, but since he is getting better, we can probably hold off on EEG at this time. PLAN: 1. MRI scan of the brain. 2. Correct the underlying medical abnormalities. Thank you for this interesting case. Freddy Yeboah MD DR: RICHIE JOB#: [id number] CC:
[2019-05-27] MEDS ORDERED: Tubing IV Secondary IV ONE (19:59)
[2019-05-27] MEDS ORDERED: Levemir Flexpen SUBQ SCH (21:00)
--- NOTE | 2019-05-27 21:44 | General Progress Note ---
Assessment/Plan Problem List: (1) ARF (acute renal failure) ICD Codes: N17.9 - Acute kidney failure, unspecified SNOMED: 88401235, 863308546 Qualifiers: Qualified Codes: N17.9 - Acute kidney failure, unspecified (2) Obesity (BMI 30-39.9) ICD Codes: E66.9 - Obesity, unspecified SNOMED: 965594844, 953724713 (3) Acute encephalopathy ICD Codes: G93.40 - Encephalopathy, unspecified SNOMED: 28941269, 265981463 (4) Hyperglycemia due to type 2 diabetes mellitus ICD Codes: E11.65 - Type 2 diabetes mellitus with hyperglycemia SNOMED: 169405191683975, 52085035 Qualifiers: Qualified Codes: E11.65 - Type 2 diabetes mellitus with hyperglycemia (5) Hyponatremia ICD Codes: E87.1 - Hypo-osmolality and hyponatremia SNOMED: 71492495, 985977055 (6) Acute exacerbation of CHF (congestive heart failure) ICD Codes: I50.9 - Heart failure, unspecified SNOMED: 191042043, 76208359366210 Qualifiers: Qualified Codes: I50.9 - Heart failure, unspecified Status: progressing Status Narrative cri diabetic nephropathy sepsis encepalopathy metabolic encepalopathy needs to go to snf to continue iv abx Assessment/Plan: low k arf on top of cri arf is improving no fever niddm sepsis needs abx weak and also needs pt Subjective ROS Limited/Unobtainable: Yes Allergies: Coded Allergies: No Known Allergies (Unverified , 09/24/12) Objective Last 24 Hour Vital Signs Date Time Temp Pulse Resp B/P (MAP) Pulse Ox O2 Delivery O2 Flow Rate FiO2 05/27/19 16:00 98.4 82 18 141/71 (94) 94 05/27/19 12:00 98.2 80 20 152/73 (99) 96 05/27/19 10:06 81 159/79 05/27/19 10:05 81 159/79 05/27/19 09:00 Room Air 05/27/19 08:00 79 05/27/19 08:00 97.5 81 18 159/79 (105) 96 05/27/19 04:00 98.4 80 16 124/57 (79) 96 05/27/19 04:00 75 05/27/19 00:00 99.0 83 16 152/84 (106) 96 05/27/19 00:00 81 Intake and Output 05/26/19 05/27/19 19:00 07:00 Intake Total 236 ml 100 ml Output Total 700 ml 600 ml Balance -464 ml -500 ml Intake Oral 236 ml 100 ml Output Urine Total 700 ml 600 ml # Voids 1 Laboratory Tests 05/27/19 06:18: White Blood Count 8.9, Red Blood Count 3.37L, Hemoglobin 10.0L, Hematocrit 28.9L , Mean Corpuscular Volume 86, Mean Corpuscular Hemoglobin 29.6, Mean Corpuscular Hemoglobin Concent 34.6, Red Cell Distribution Width 11.4L, Platelet Count 395, Mean Platelet Volume 5.8L, Neutrophils (%) (Auto) 70.2, Lymphocytes (%) (Auto) 14.6L, Monocytes (%) (Auto) 12.9H, Eosinophils (%) (Auto ) 1.2, Basophils (%) (Auto) 1.2, Sodium Level 139, Potassium Level 3.9, Chloride Level 105, Carbon Dioxide Level 21, Anion Gap 13, Blood Urea Nitrogen 33H, Creatinine 3.6H, Estimat Glomerular Filtration Rate 16.9, Glucose Level 115H, Calcium Level 8.2L, Phosphorus Level 4.1, Magnesium Level 2.0, Total Bilirubin 0.3, Aspartate Amino Transf (AST/SGOT) 17, Alanine Aminotransferase ( ALT/SGPT) < 6L, Alkaline Phosphatase 75, C-Reactive Protein, Quantitative 9.1H, Pro-B-Type Natriuretic Peptide 51225I, Total Protein 6.2L, Albumin 2.4L, Globulin 3.8, Albumin/Globulin Ratio 0.6L Height (Feet): 5 Height (Inches): 5.00 Weight (Pounds): 179 Rosalba Estrada MD May 27, 2019 21:44
--- NOTE | 2019-05-27 22:55 | Psych Consult Progress Note ---
Psychiatry Progress Note Psychiatry Progress Note Subjective the pt is less agitated. has AH. no aggressive behavior Medications Current Medications Medications (Trade) Dose Ordered Sig/Brendon Route PRN Reason Start Time Stop Time Status Last Admin Dose Admin Allopurinol (allopurinoL) 300 mg DAILY ORAL 05/25/19 09:00 06/24/19 08:59 05/27/19 10:05 Amlodipine Besylate (Norvasc) 10 mg DAILY ORAL 05/22/19 10:00 06/21/19 09:59 05/27/19 10:05 Aspirin (ASA) 81 mg DAILY ORAL 05/22/19 10:15 07/06/19 10:14 05/27/19 10:06 Atorvastatin Calcium (Lipitor) 20 mg BEDTIME ORAL 05/22/19 21:00 08/20/19 20:59 05/26/19 21:11 Ceftriaxone Sodium 1 gm/ Dextrose 55 ml @ 110 mls/hr Q24H IVPB 05/22/19 11:00 05/29/19 10:59 05/27/19 11:44 Dextrose (Dextrose 50%) 25 ml Q30M PRN IV Hypoglycemia 05/23/19 07:00 08/21/19 06:59 Dextrose (Dextrose 50%) 50 ml Q30M PRN IV Hypoglycemia 05/23/19 07:00 08/21/19 06:59 Docusate Sodium (Colace) 100 mg THREE TIMES A DAY ORAL 05/22/19 13:00 06/21/19 12:59 05/27/19 18:09 Doxycycline Monohydrate (Doxycycline Monohydrate) 100 mg EVERY 12 HOURS ORAL 05/25/19 13:15 06/01/19 13:14 05/27/19 10:06 Hydralazine HCl (Apresoline) 25 mg Q4H PRN ORAL bp over 160 syst 05/22/19 09:59 08/20/19 09:58 Insulin Aspart (NovoLOG) BEFORE MEALS AND HS SUBQ 05/22/19 21:00 08/20/19 20:59 05/27/19 18:08 Insulin Detemir (Levemir) 10 units QHS SUBQ 05/27/19 21:00 08/20/19 19:59 Iron Sucrose 100 mg/Sodium Chloride 60 ml @ 240 mls/hr BEDTIME IV 05/24/19 21:00 05/28/19 21:14 05/26/19 21:10 Lorazepam (Ativan) 1 mg Q4H PRN ORAL For Anxiety 05/22/19 18:30 05/29/19 18:29 05/25/19 16:23 Metoprolol Tartrate (Lopressor) 12.5 mg Q12HR ORAL 05/24/19 21:00 08/22/19 20:59 05/27/19 10:06 Olanzapine (ZyPREXA) 2.5 mg BID ORAL 05/25/19 09:30 07/09/19 09:29 05/27/19 18:09 Pantoprazole (Protonix) 40 mg EVERY 12 HOURS ORAL 05/22/19 10:00 06/21/19 09:59 05/27/19 10:06 Sitagliptin Phosphate (Januvia) 50 mg ACBREAKFAST ORAL 05/22/19 10:01 06/21/19 10:00 05/27/19 06:41 Neurological/Psychiatric: Reports: anxiety, depressed Allergies: Coded Allergies: No Known Allergies (Unverified , 09/24/12) Objective Data Height (Feet): 5 Height (Inches): 5.00 Weight (Pounds): 179 General Appearance: alert, confused, agitated Appearance: no abnormalities noted Behavior Mannerisms: poor eye contact Mental Status Exam - Affect: constricted Mental Status Exam - Mood: irritable, anxious Perceptual Disturbances: auditory Assessment/Plan Problem List: (1) Acute encephalopathy ICD Codes: G93.40 - Encephalopathy, unspecified SNOMED: 79961831, 926659053 Status: progressing Assessment/Plan: will continue current medications. Zyprexa for hallucinations. denise nurse Vamshi Amador MD May 27, 2019 22:55
--- NOTE | 2019-05-29 20:01 | Discharge Summary ---
Discharge Summary Discharge Summary _ DATE OF ADMISSION: 05/22/2019 DATE OF DISCHARGE: 05/27/2019 DISCHARGED BY: Dr. Rosalba Bustillos CONSULTANTS: Dr. Vamshi Beasley [facility] H[facility]PITAL COURSE: Patient is 69-year-old male, with history of diabetes. He presented to ED due to altered mental status and weakness. Onset was 1 week. Family called 911. He was showing increased weakness and confusion. He had hard time walking. He tried to get out of bed and slid down. They were unable to get him up. Per paramedics, blood sugar was in the 400s. Upon evaluation at ED, blood work showed WBC elevated to 13.6. Hemoglobin 12, hematocrit 35. Sodium was 120. Chloride 83. BUN was elevated to 37 and creatinine 3.6. Glucose 486. BNP was elevated at 9391. Chest x-ray was normal. He had pitting edema. He was given Lasix. Urinalysis showed 4+ protein, 4+ glucose, 3+ blood, negative leukocyte esterase. Urine toxicology negative. Head CT did not show any acute pathology. He was then admitted for evaluation of acute encephalopathy, acute exacerbation of CHF, hyperglycemia, acute renal failure and hyponatremia. Kidney function was monitored. Patient had renal failure, most likely acute superimposed on chronic. He had evidence of diabetic nephropathy due to proteinuria. He had severe hyponatremia. He was given hypertonic saline solution. He was given Rocephin empirically. He underwent psychiatric evaluation. Patient was unable to provide meaningful history. He was attempting to come out of the bed. He was placed on soft restraints for safety. He was started on Zyprexa. Blood glucose was monitored. He was given Levemir. He was given 10 units of NovoLog ac. He was given Januvia 50 mg daily. Fasting glucose improved. Troponin was negative x2. Echocardiogram showed ejection fraction of 55%. He has a severe aortic stenosis with aortic valve area of 0.5. He also has history of coronary artery bypass graft based on sternotomy. He was given Lipitor, aspirin, Norvasc and PRN hydralazine. He was continued on Lasix. He was given potassium supplements as needed. Patient presented with anemia. Anemia work-up showed lowlevels of ferritin. He was given IV iron. Patient came in with a right heel plantar posterior heel DTI. There was no purulent drainage. Patient also has right foot Charcot. He was given local wound care. Serum creatinine was rising. Lasix was discontinued. Kidney ultrasound showed distended urinary bladder. Unremarkable kidneys. No hydronephrosis. Blood glucose improved. Levemir and NovoLog dose adjusted. Right foot MRI was inconclusive. Findings showed superficial cortical and periosteal edema on the posterior part of the calcaneus adjacent to the area of cellulitis. Arterial scan of bilateral lower extremity showed patent with atherosclerotic calcifications. Monophasic waveforms noted bilaterally starting from distal SFA down to the dorsalis pedis arteries suggesting a degree of stenosis bilaterally. Doxycycline was added to his regimen. Wound culture showed coagulase-negative staph. Neuro evaluation was done. Brain MRI did not show any acute intracranial pathology. No evidence of acute infarct, intracranial hemorrhage or abnormal mass-effect. EEG was not indicated at this time. Patient was less agitated. There was no aggressive behavior. He was eventually transferred to [facility]. FINAL DIAGNOSES: Acute metabolic encephalopathy Hyponatremia Possible acute exacerbation of diastolic CHF Severe aortic stenosis History of coronary artery bypass graft based on sternotomy Hypertension Obesity Hyperglycemia due to uncontrolled diabetes mellitus Diabetic nephropathy Acute renal failure Anemia of iron deficiency Deep tissue pressure injury on the right heel, present on admission DISPOSITION: DC to SNF DISCHARGE MEDICATIONS: Refer to Discharge Medication List. I have been assigned to complete a discharge summary on this account, I was not involved with the patient's management.--KIESHA Carter Jacqueline Robles NP May 29, 2019 20:01
== END 2019-05-27 20:00 | DRG 291 ==
LOC: EDBD 04:26 → EMR 04:50 → EDBEDREQ 06:36 → 2E 07:53
DX: I13.0 Hypertensive heart and chronic kidney disease with heart failure and stage 1 through stage 4 chronic kidney disease, or unspecified chronic kidney disease (principal); G93.41 Metabolic encephalopathy; I50.33 Acute on chronic diastolic (congestive) heart failure; I50.43 Acute on chronic combined systolic (congestive) and diastolic (congestive) heart failure; E87.1 Hypo-osmolality and hyponatremia; N17.9 Acute kidney failure, unspecified; F05 Delirium due to known physiological condition; N18.4 Chronic kidney disease, stage 4 (severe); I45.2 Bifascicular block; L03.115 Cellulitis of right lower limb; L97.419 Non-pressure chronic ulcer of right heel and midfoot with unspecified severity; L97.119 Non-pressure chronic ulcer of right thigh with unspecified severity; L97.829 Non-pressure chronic ulcer of other part of left lower leg with unspecified severity; M86.9 Osteomyelitis, unspecified; L89.616 Pressure-induced deep tissue damage of right heel; E11.22 Type 2 diabetes mellitus with diabetic chronic kidney disease; E11.65 Type 2 diabetes mellitus with hyperglycemia; E11.610 Type 2 diabetes mellitus with diabetic neuropathic arthropathy; D72.829 Elevated white blood cell count, unspecified; E87.8 Other disorders of electrolyte and fluid balance, not elsewhere classified; R33.9 Retention of urine, unspecified; D50.9 Iron deficiency anemia, unspecified; E11.621 Type 2 diabetes mellitus with foot ulcer; E11.622 Type 2 diabetes mellitus with other skin ulcer; E11.69 Type 2 diabetes mellitus with other specified complication; I35.0 Nonrheumatic aortic (valve) stenosis; I25.10 Atherosclerotic heart disease of native coronary artery without angina pectoris; E78.5 Hyperlipidemia, unspecified; F29 Unspecified psychosis not due to a substance or known physiological condition; F03.90 Unspecified dementia, unspecified severity, without behavioral disturbance, psychotic disturbance, mood disturbance, and anxiety; Z78.1 Physical restraint status; F10.11 Alcohol abuse, in remission; E66.9 Obesity, unspecified; Z68.30 Body mass index [BMI] 30.0-30.9, adult; Z79.4 Long term (current) use of insulin; Z95.1 Presence of aortocoronary bypass graft; Z79.82 Long term (current) use of aspirin; Z87.891 Personal history of nicotine dependence
CPT/HCPCS: 36415; 70450; 70551; 71045; 76770; 80053; 80061; 80307; 81003; 82550; 82607; 82728; 82746; 82962; 82977; 83036; 83540; 83550; 83735; 83880; 83930; 84100; 84443; 84484; 84550; 85007; 85025; 86140; 87070; 87205; 93005; 93306; 93925; 96361; 96374; 96375; 99285; J1815; J7030; J8499; S5561